=== PATIENT | female | born 1960 | race Caucasian/White ===

== ENCOUNTER → 2020-03-22 08:49 | Outpatient (BNVA) | payer OTHER, SELFPAY | PROVIDERS: PCP Family Medicine; Referring Provider Family Medicine; Visit Provider Physician Assistant | DX: K21.9 Gastro-esophageal reflux disease without esophagitis (principal); Z79.899 Other long term (current) drug therapy | CPT/HCPCS: 99212 ==

== ENCOUNTER → 2020-06-21 15:31 | Outpatient (BNVA) | payer OTHER, SELFPAY | PROVIDERS: PCP Family Medicine; Visit Provider Internal Medicine Cardiovascular Disease | DX: Z01.810 Encounter for preprocedural cardiovascular examination (principal); I35.0 Nonrheumatic aortic (valve) stenosis; R00.2 Palpitations | CPT/HCPCS: 93005; 99212 ==

== ENCOUNTER 2020-06-30 07:25 | Day surgery (SDC) | payer OTHER, SELFPAY ==
[2020-03-13 08:39] VITALS: BMI 25.7
[2020-06-30 07:41] VITALS: BP 119/75; PULSE 91; RESP 16; TEMP 36.8; O2SAT 99
--- NOTE | 2020-06-30 07:52 | HO.ANESPROP2 ---
[facility] Active Problems Active Problems: All Active Problems (Updated 06/21/20 @ 16:07 by Jesse Hudson MD) History of anemia (Acute) Laboratory examination ordered as part of a routine general medical examination (Acute) Screening for cervical cancer (Acute) Murmur, cardiac (Acute) Fibromyalgia (Acute) Chronic pain (Acute) Back pain (Acute) Moderate aortic stenosis (Acute) Palpitations (Acute) Preoperative cardiovascular examination (Acute) Acid reflux (Acute) Elevated fasting blood sugar (Acute) Past Medical History Medical History Acid reflux Arthritis Degenerative disc disease Depression Elevated fasting blood sugar GERD (gastroesophageal reflux disease) History of cardiac murmur History of palpitations Irritable bowel syndrome (IBS) Lab test negative for COVID-19 virus Thyroid disease Family History Family History Father Asthma Mother Arthritis Medical history non-contributory Brother Colon cancer Brother No problems noted. Brother No problems noted. Sister No problems noted. Sister No problems noted. Sister No problems noted. Son No problems noted. Son No problems noted. Daughter No problems noted. Surgical History Surgical History H/O colonoscopy H/O excision of ganglion cyst History of back surgery History of esophagogastroduodenoscopy (EGD) Hx of cholecystectomy Hx of tubal ligation Social History Social History Alcohol intake: never Smoking Status: Unknown if ever smoked Advance Directives Information Provided: No Current occupational status: disabled Meds Allergies Allergy/AdvReac Type Severity Reaction Status Date / Time nabumetone [From Relafen] Allergy Intermediate ITCHING Verified 06/30/20 07:52 shellfish derived Allergy Intermediate Swelling Verified 06/30/20 07:52 tramadol [Tramadol] Allergy Mild ITCHING Verified 06/30/20 07:52 Home Medications Medication Instructions Recorded Confirmed Last Taken Type fluticasone propionate 1 spray INTRANASAL DAILY 03/13/20 06/21/20 Unknown History meclizine 1 tab PO TID PRN 03/13/20 06/21/20 Unknown History omeprazole 1 cap PO DAILY 03/13/20 06/21/20 06/30/20 06:30 History paroxetine HCl 1 tab PO BEDTIME 03/13/20 06/21/20 Unknown History zolpidem 1 tab PO BEDTIME PRN 03/13/20 06/21/20 Unknown History lorazepam 1 mg tablet mg PO 03/20/20 06/21/20 Unknown History buspirone 10 mg tablet 10 mg PO BID 04/27/20 06/26/20 06/30/20 06:30 History cholecalciferol (vitamin D3) 25 25 mcg PO DAILY 04/27/20 06/26/20 Unknown History mcg (1,000 unit) capsule duloxetine 60 mg capsule,delayed 60 mg PO DAILY 04/27/20 06/26/20 Unknown History release fexofenadine 180 mg tablet 180 mg PO DAILY 04/27/20 06/26/20 Unknown History clonazepam 1 mg tablet 1 mg PO DAILY PRN 06/21/20 06/26/20 Unknown History Exam Exam Date and Time: June 30, 2020 0752 Height,Weight and Vital Signs: Height 5 ft 3 in Weight 65.771 kg Last Vital Signs Temp 98.3 F 06/30/20 07:41 Pulse 91 06/30/20 07:41 Resp 16 06/30/20 07:41 BP 119/75 06/30/20 07:41 Pulse Ox 99 06/30/20 07:41 Airway Mallampati Class: I TM Dist: >3cm Denture: Upper Loose/Missing/Broken Teeth: Yes, Upper and Lower Heart: RRR Lungs: CTA Assessment and Plan Assessment Anesthesia Assessment: Anesthesia Plan Discussed and Chart Reviewed Final Anesthetic Review NPO: Yes ASA Class: III Final Preanesthetic Review: Meds/Allgs Chart Reviewed, Consent Obtained/Reviewed and Anes Risks/Benef Reviewed Patient Risk: Intermediate Procedure Risk: Intermediate Anesthetic Plan Anesthetic Plan: MAC: Disposition: Standard PACU
[2020-06-30] MEDS: Lactated Ringers 1,000 ML 50 ML IV (08:08)
--- NOTE | 2020-06-30 08:12 | W.PM.OPN ---
Operative Note Operative Note Date of Service: 06/30/20 Narrative: Pre-op diagnosis: Colon cancer screening, GERD Post-op diagnosis: other (GERD, gastritis, gastric nodule, diverticulosis, hemorrhoids) Procedure: FLEXIBLE TRANSORAL UPPER GASTROINTESTINAL ENDOSCOPY WITH BIOPSIES AND COLONOSCOPY TILL CECUM WITH BIOPSIES UPPER ENDOSCOPY Consent: Indications for the procedure and potential complications of bleeding, perforation, reaction to medications and missed diagnosis were discussed with the patient and informed consent was obtained. Instrument: Olympus GIF H 190 mid size upper endoscope Monitoring: Vital signs and clinical assessment, continuous EKG monitoring, Pulse oximetry, Carbon Dioxide monitoring and blood pressure monitoring were done throughout the procedure. Procedure: The patient was placed in the left lateral decubitis position and pre-procedure medications were administered and a bite block was placed. The endoscope was inserted into the mouth and advanced under direct vision to the third part of duodenum. A careful inspection was made as the upper endoscope was withdrawn including a retroflexed examination of the proximal stomach; Findings and interventions are described below. Findings: Larynx: Normal Esophagus: GE junction at 38 cms.. No esophagitis or Lelsworth's. Stomach: Moderate diffuse gastric erythema with nodular appearing gastric mucosa in the body of the stomach. Biopsies were obtained from the antrum and body. A 1.5 cms benign appearing nodule in the antrum - biopsied. Grade 2 flap valve on retroflexed examination of the cardia. Duodenum: Normal bulb and descending duodenum Intervention: Biopsies as noted above COLONOSCOPY PROCEDURE NOTE Consent: Indications for the procedure and potential complications of bleeding, perforation, reaction to medications and missed diagnosis were discussed with the patient and informed consent was obtained. Instrument: Olympus PCF H 190 L variable stiffness pediatric colonoscope Monitoring: Vital signs and clinical assessment, intermittent blood pressure monitoring, continuous EKG monitoring, Pulse oximetry and Carbon Dioxide monitoring were done throughout the procedure. Colon withdrawl time was 20 minutes. Procedure: The patient was placed in the left lateral decubitis position and pre-procedure medications were administered. After a digital rectal examination of the ano-rectum, the video colonoscope was inserted into the rectum and advanced through the colon to the cecum. The colonoscope was slowly withdrawn in a retrograde panoramic fashion and the colon mucosa was carefully examined including a retroflexed view of the rectum. Findings and interventions are described below. Procedure Difficulty: : Colon was long and tortuous, there was some loop formation. No maneuvers required. Findings: Terminal Ileum: Distal 10 cm was examined and appeared normal - random biopsies were obtained Cecum: Friable and nodular appearing mucosa with patchy erythema - random biopsies obtained from the right colon Ascending Colon: Friable and nodular appearing mucosa with patchy erythema - random biopsies obtained from the right colon. Transverse Colon: Friable and nodular appearing mucosa with patchy erythema Descending Colon: Moderate diverticulosis Sigmoid Colon: Friable and nodular appearing mucosa with patchy erythema - random biopsies obtained from the left colon.Severe diverticulosis with luminal narrowing Rectum: Normal Ano-rectum: Moderate internal hemorrhoids Colon preparation: Good Impression and Post Procedure Diagnosis: Endoscopy Findings: STOMACH: Moderate diffuse gastric erythema with nodular appearing gastric mucosa in the body of the stomach. Biopsies were obtained from the antrum and body. A 1.5 cms benign appearing nodule in the antrum - biopsied Colonoscopy Findings: No polyps were detected Friable and nodular appearing mucosa with patchy erythema (rt > lt) - random biopsies obtained from the TI, right and left colon Moderate diverticulosis seen in the left colon Moderate hemorrhoids on retroflexed exam. Plan: Await pathology results Patient has an appointment on 07/06/20 in the GI Clinic with JEMMA Rogers. Repeat Colonoscopy interval based on path results - in 5 years due to a history of adenomatous colon polyps. Above findings were reviewed with the patient and GERD and diverticulosis handouts were given in the discharge area Surgeon: Miguelito Caldwell MD Anesthesia: MAC (Rachel Cuff, [employer]) Estimated blood loss (mL): 0 Pathology: other (A. Gastric antrum, B. Gastric antral nodule, C. Gastric body, D. TI, E. Rt colon, F. Left colon) Condition: stable Disposition: PACU
--- NOTE | 2020-06-30 08:12 | MHC.SHP ---
Pre-Procedural Eval Section A The patient is an INPATIENT: No The History & Physical has been completed within 30 days and I have reviewed it.: No Section B Chief Complaint: IBS, Acid Reflux Details of Present Illness: A 59-year-old female scheduled for follow-up after EGD and colonoscopy- she had call to reschedule that had not happen. she says she still has her prep- she wants to be rescheduled. She can not is to have acid reflux despite PPI. She is taking Linzess with good response for constipation. She has had no rectal bleeding, fever or chills. Relevant Family History (Specify if Yes): No Relevant Social History: None Present Medications: see Short Stay Collaborative assessment Medical History: Significant History (Acid reflux Arthritis Degenerative disc disease Depression Elevated fasting blood sugar GERD (gastroesophageal reflux disease) History of cardiac murmur History of palpitations Irritable bowel syndrome (IBS) Lab test negative for COVID-19 virus Thyroid disease) History of Previous Operations: Relevant previous surgery/procedure and date(s) (H/O colonoscopy H/O excision of ganglion cyst History of esophagogastroduodenoscopy (EGD) Hx of cholecystectomy Hx of tubal ligation) Allergies: Allergies Allergy/AdvReac Type Severity Reaction Status Date / Time nabumetone [From Relafen] Allergy Intermediate ITCHING Verified 06/30/20 07:52 shellfish derived Allergy Intermediate Swelling Verified 06/30/20 07:52 tramadol [Tramadol] Allergy Mild ITCHING Verified 06/30/20 07:52 Review of Systems Sugical H&P ROS: Negative: Cardiovascular, Respiratory and Neurological and Yes, Specify: Gastrointestinal (heartburn) Exam Surgical H&P Exam: Normal: Heart, Normal: Lungs, Normal: Extremities and Normal: Abdomen Plan Diagnosis/Plan: Unchanged I have reviewed the history and physical and performed a pertinent physical examination on my patient. No changes have occurred unless specified.
[2020-06-30 09:19] VITALS: BP 96/65; PULSE 97; RESP 20; TEMP 36.3; O2SAT 98
[2020-06-30 09:24] VITALS: BP 111/69; PULSE 83; RESP 20; O2SAT 99
[2020-06-30 09:34] VITALS: BP 113/72; PULSE 92; RESP 20; O2SAT 99
[2020-06-30 09:49] VITALS: BP 121/80; PULSE 84; RESP 20; O2SAT 99
== END 2020-06-30 10:15 | disposition home or self-care (01) ==
PROVIDERS: PCP Family Medicine; Visit Provider Internal Medicine Gastroenterology
PROC: (CPT 45380; principal; 2020-06-30 08:20)
DX: Z12.11 Encounter for screening for malignant neoplasm of colon (principal); K57.30 Diverticulosis of large intestine without perforation or abscess without bleeding; K64.8 Other hemorrhoids; K52.9 Noninfective gastroenteritis and colitis, unspecified; K21.9 Gastro-esophageal reflux disease without esophagitis; K29.50 Unspecified chronic gastritis without bleeding; K31.7 Polyp of stomach and duodenum; I35.0 Nonrheumatic aortic (valve) stenosis; Z79.899 Other long term (current) drug therapy; Z88.8 Allergy status to other drugs, medicaments and biological substances; Z90.49 Acquired absence of other specified parts of digestive tract
CPT/HCPCS: 45380; 43239; 88305; 88342

== ENCOUNTER 2020-07-05 06:39 | Outpatient (REF) | payer OTHER, SELFPAY ==
[2020-07-05 07:41] LABS: Alanine Aminotransferase 15 U/L (0-31); Alkaline Phosphatase 56 U/L (39-117); Anion Gap 12 (12-20); Aspartate Amino Transferase 21 U/L (5-31); Bilirubin Total 0.6 mg/dL (0.0-1.0); Blood Urea Nitrogen 10 mg/dL (9-16); Carbon Dioxide 29 mmol/L (22-29); Cholesterol 182 mg/dL; Estimated Glomerular Filt Rate > 60; Glucose Fasting 102 mg/dL (60-99); HDL Cholesterol 71 mg/dL; LDL Cholesterol Calculated 97 mg/dl; Total Protein 7.5 g/dL (6.5-8.0); Triglycerides 72 mg/dL
[2020-07-05 08:02] LABS: TSH reflex Free T4 1.41 uIU/mL (0.32-4.0)
[2020-07-05 08:40] LABS: Albumin Level 4.3 g/dL (3.5-5.0); Calcium 9.3 mg/dL (8.4-10.2); Chloride 105 mmol/L (96-108); Potassium 4.5 mmol/L (3.3-5.1); Sodium 141 mmol/L (135-145)
== END 2020-07-05 06:40 | disposition home or self-care (01) ==
LOC: HO.LAB 06:39
PROVIDERS: PCP Family Medicine; Visit Provider Family Medicine
DX: Z00.00 Encounter for general adult medical examination without abnormal findings (principal); R73.01 Impaired fasting glucose
CPT/HCPCS: 36415; 80053; 80061; 84443

== ENCOUNTER → 2020-07-06 10:13 | Outpatient (BNVA) | payer OTHER, SELFPAY | PROVIDERS: PCP Family Medicine; Visit Provider Physician Assistant | DX: Z13.89 Encounter for screening for other disorder (principal) | CPT/HCPCS: 99212 ==

== ENCOUNTER 2020-07-07 12:18 | Outpatient (REF) | payer OTHER, SELFPAY ==
[2020-07-07 13:50] LABS: MANUAL DIFF FLAG NO
[2020-07-07 13:55] LABS: Basophils Percent Auto 0.6 % (0-2); Eosinophils Absolute Auto 0.5 X10*3/uL (0.0-0.4); Eosinophils Percent Auto 6.7 % (0-4); Hematocrit 36.3 % (37-47); Hemoglobin 11.7 g/dl (12.0-16.0); Imm Gran Abs Auto 0.01 X10*3/uL (0.00-0.03); Imm Gran Pct Auto 0.1 % (0.0-0.4); Lymphocytes Absolute Auto 2.7 X10*3/uL (1.2-4.9); Lymphocytes Percent Auto 39.6 % (20-40); Mean Corpuscular HGB Conc 32.2 g/dl (31.0-35.0); Mean Corpuscular Hemoglobin 29.2 pg (27.0-33.0); Mean Corpuscular Volume 90.5 fL (80-98); Mean Platelet Volume 10.2 fL (9.4-12.3); Monocytes Absolute Auto 0.4 X10*3/uL (0.1-1.2); Monocytes Percent Auto 6.4 % (2-11); Neutrophils Absolute Auto 3.2 X10*3/uL (2.0-8.3); Neutrophils Percent Auto 46.6 % (45-73); Platelet Count 195 X10*3/uL (160-400); Red Blood Count 4.01 X10*6/uL (4.20-5.50); White Blood Count 6.8 X10*3/uL (4.8-10.8)
[2020-07-07 14:03] LABS: Estimated Average Glucose 100 mg/dL; Hemoglobin A1c % 5.1 %
== END 2020-07-07 12:19 | disposition home or self-care (01) ==
LOC: HO.WFDLDS 12:18
PROVIDERS: Visit Provider Family Medicine
DX: R73.01 Impaired fasting glucose (principal); D64.9 Anemia, unspecified; Z12.4 Encounter for screening for malignant neoplasm of cervix
CPT/HCPCS: 36415; 83036; 85025

== ENCOUNTER 2020-07-25 09:31 | Outpatient (REF) | payer OTHER, SELFPAY ==
[2020-07-25 11:58] LABS: SARS COV2 PCR INHOUSE NEGATIVE (Negative)
== END 2020-07-25 09:32 | disposition home or self-care (01) ==
LOC: HO.LAB 09:31
PROVIDERS: Visit Provider Internal Medicine
DX: Z20.822 Contact with and (suspected) exposure to COVID-19 (principal)
CPT/HCPCS: C9803; U0003

== ENCOUNTER 2020-08-23 10:39 | Outpatient (REF) | payer OTHER, SELFPAY ==
[2020-08-30 03:52] LABS: HPV mRNA E6/E7 rflx Not Detected (Not Detected)
== END 2020-08-23 10:40 | disposition home or self-care (01) ==
LOC: HO.LAB 10:39
PROVIDERS: Visit Provider Advanced Practice Midwife
DX: Z01.419 Encounter for gynecological examination (general) (routine) without abnormal findings (principal); Z11.51 Encounter for screening for human papillomavirus (HPV)
CPT/HCPCS: 87624; 88142

== ENCOUNTER → 2020-09-13 10:26 | Outpatient (REF) | payer OTHER, SELFPAY ==
--- NOTE | 2020-09-13 10:30 | CA_ITS ---
Transthoracic Echocardiogram Patient (Last, First, Middle): Margarette Fry, Gender: Female Date of : 1960 Age: 59 Procedure Date: 09/13/2020 Procedure Type: Transthoracic Echocardiogram Location: OP Height: 160.02 cm Weight: 66.23 kg BSA: 1.69 m2 Heart Rate: bpm BP: 117 / 69 mmHg Director Of Strategic Marketing: MELANY Davidson MD: Jesse Hudson MD Bridge/Structure Inspection Team Leader: Antoni Leblanc MD Symptoms: R01.1 - Cardiac murmur, unspecified Study Quality: Fair ECG Rhythm: Sinus Conclusions: - 1. Normal LV systolic function 2. Moderate aortic stenosis 3. Normal RV systolic pressure 4. No pericardial effusion Findings Left Ventricle Normal left ventricular size, thickness, and systolic function. The visually estimated ejection fraction is between 60-65%. Spectral Doppler is indicative of a normal filling pattern. Right Ventricle Normal right ventricular cavity size and systolic function. Atria Both atria are normal in size. Interatrial shunt cannot be excluded. Aortic Valve There is moderate calcification of the aortic valve. There is moderate aortic valve stenosis. The mean gradient is 15 mmHg. There is no aortic valve regurgitation. Mean gradient in the range of [id number]-[id number] stenosis, however there is low stroke volume noted and valve area calculated at 1.12 cm2. Dimensionless index is 0.32. Overall more consistent with moderate aortic stenosis. Mitral Valve Likely normal mitral valve structure and function. There is trace mitral valve regurgitation. There is no mitral valve stenosis. Pulmonic Valve The pulmonic valve was not well visualized. Tricuspid Valve Likely normal tricuspid valve structure and function. There is trace tricuspid valve regurgitation. The right ventricular systolic pressure is normal. The right ventricular systolic pressure is 25 mmHg. Normal right atrial pressure. There is no evidence of pulmonary hypertension. Great Vessels All visible segments of the aorta are normal in size. The pulmonary artery was not well visualized. Venous The inferior vena cava is normal in size and collapses greater than 50% with inspiration. Pericardium/Pleural There is no evidence of pericardial effusion. Measurements 2D Linear Measurements IVSd: 0.71 0.6-0.9/0.6-1.0 cm LVIDd: 4.35 3.9-5.3/4.2-5.9 cm LVIDd Index: 2.57 2.4-3.2/2.2-3.1 cm/m2 LVIDs: 3.05 2.0-3.6 cm LVPWd: 0.78 0.7-1.1 cm Ao Root: 2.90 2.1-3.5 cm LA Diam: 3.10 2.7-3.8/3.0-4.0 cm LAIDs Index: 1.83 1.5-2.3 cm/m2 LV Mass: 120.69 67-162/88-224 g LV Mass Index: 71.41 43-95/49-115 g/m2 LVOT Diam: 2.10 3.0+(-)1.3 cm Mitral Valve MV Pk E: 0.77 MV PK A: 0.66 MV Decel Time: 229.00 E/A: 1.20 E'Lateral: 10.90 E'Medial: 8.38 E/E' Med: 9.20 E/E' Lat: 7.10 PHT: 67.00 MVA PHT: 3.28 Decel Johnson: 3.37 Aortic Valve AoV Pk Lion: 2.82 AoV Mn Lion: 1.81 AoV VTI: 0.61 AoV Pk Grad: 32.00 Aov Mn Grad: 15.00 GENIA Cont.VTI: 1.12 LVOT LVOT Pk Lion: 0.78 LVOT Mn Lion: 0.55 LVOT VTI: 0.20 LVOT Pk Grad: 2.00 LVOT Mn Grad: 1.00 LVOT Diam: 2.10 LVOT Area: 3.46 Diastolic Function MV Pk E: 0.77 MV Pk A: 0.66 E/A: 1.20 E'Medial: 8.38 E/E' Med: 9.20 E' Laterial: 10.90 E/E' Lat: 7.10 Tricuspid Valve TR Pk Lion: 2.36 TR Pk Grad: 22.00 RA Press: 3.00 RVSP: 25.00 Great Vessels Aorta Ao Root-2D: 2.90 2.0-3.7 cm Ao Asc: 2.80 2.1-3.4 cm Ao Arch: 3.20 Updated in Other Vendor System with Status of Final Antoni Leblanc MD electronically signed on 09/14/2020 5:18:32 PM with status of Final
== END ==
LOC: HO.CARD 10:26
PROVIDERS: Visit Provider Internal Medicine Cardiovascular Disease
DX: R01.1 Cardiac murmur, unspecified (principal)
CPT/HCPCS: 93306

== ENCOUNTER 2020-09-14 11:45 | Outpatient (REF) | payer OTHER, SELFPAY ==
[2020-09-14 12:08] LABS: MANUAL DIFF FLAG NO
[2020-09-14 12:19] LABS: Basophils Absolute Auto 0.1 X10*3/uL (0.0-0.2); Eosinophils Absolute Auto 0.9 X10*3/uL (0.0-0.4); Eosinophils Percent Auto 15.4 % (0-4); Hematocrit 37.3 % (37-47); Imm Gran Abs Auto 0.02 X10*3/uL (0.00-0.03); Imm Gran Pct Auto 0.3 % (0.0-0.4); Lymphocytes Absolute Auto 2.1 X10*3/uL (1.2-4.9); Lymphocytes Percent Auto 35.5 % (20-40); Mean Corpuscular HGB Conc 32.2 g/dl (31.0-35.0); Mean Corpuscular Hemoglobin 29.3 pg (27.0-33.0); Mean Corpuscular Volume 91.2 fL (80-98); Mean Platelet Volume 9.6 fL (9.4-12.3); Monocytes Absolute Auto 0.4 X10*3/uL (0.1-1.2); Monocytes Percent Auto 6.7 % (2-11); Neutrophils Absolute Auto 2.5 X10*3/uL (2.0-8.3); Neutrophils Percent Auto 41.1 % (45-73); Platelet Count 194 X10*3/uL (160-400); Red Blood Count 4.09 X10*6/uL (4.20-5.50); Red Cell Distribution Width 13.1 % (11.0-16.0)
== END 2020-09-14 11:46 | disposition home or self-care (01) ==
LOC: HO.LAB 11:45
PROVIDERS: PCP Family Medicine; Visit Provider Family Medicine
DX: D64.9 Anemia, unspecified (principal)
CPT/HCPCS: 36415; 85025

== ENCOUNTER 2020-09-27 11:56 | Outpatient (REF) | payer OTHER, SELFPAY ==
--- NOTE | ~2020-09-27 | MM_ITS ---
EXAMINATION: MM SCREENING DIGITAL BREAST TOMOSYNTHESIS, BILATERAL CLINICAL INFORMATION: Screening. Asymptomatic. The lifetime risk of breast cancer based on the Tyrer-Cuzick Model is 4%. COMPARISON: Mammography: 05/08/2015, 12/10/2012 TECHNIQUE: Digital breast tomosynthesis is performed in both the craniocaudal and mediolateral oblique views along with computer-aided detection (CAD). Synthesized 2D images are generated from the tomosynthesis. FINDINGS: There are scattered areas of fibroglandular density (ACR BI-RADS breast composition Category b). There are interval bilateral benign ductal secretory calcifications, greater on right synthesized prior exam. Scattered benign round and vascular calcifications are also present. There is no interval mass or architectural abnormality or developing density. The axilla and skin contours are unremarkable. No significant changes. MM/MM tomosynthesis screening BI IMPRESSION: No mammographic evidence of malignancy. ASSESSMENT: BI-RADS 2: Benign RECOMMENDATION: Routine annual mammography screening. This patient's information was entered into a reminder system with a target due date for their next mammogram.
== END 2020-09-27 11:57 | disposition home or self-care (01) ==
LOC: HO.MAMMO 11:56
PROVIDERS: PCP Family Medicine; Visit Provider Hospitalist
DX: Z12.31 Encounter for screening mammogram for malignant neoplasm of breast (principal)
CPT/HCPCS: 77063; 77067

== ENCOUNTER → 2021-01-18 07:47 | Outpatient (BNVA) | payer OTHER, SELFPAY | PROVIDERS: PCP Family Medicine; Visit Provider Physician Assistant | DX: K59.09 Other constipation (principal); R14.0 Abdominal distension (gaseous) | CPT/HCPCS: 99212 ==

== ENCOUNTER → 2021-02-08 11:09 | Outpatient (BNVA) | payer OTHER, SELFPAY | PROVIDERS: PCP Family Medicine; Referring Provider Family Medicine; Visit Provider Internal Medicine Cardiovascular Disease | DX: I35.0 Nonrheumatic aortic (valve) stenosis (principal); R00.2 Palpitations | CPT/HCPCS: 99212 ==

== ENCOUNTER 2021-03-16 07:51 | Outpatient (REF) | payer OTHER, SELFPAY ==
--- NOTE | ~2021-03-16 | FL_ITS ---
EXAMINATION: FL BARIUM SWALLOW CLINICAL INFORMATION: Early satiety COMPARISON: None TECHNIQUE: Barium swallow examination is performed using fluoroscopic evaluation in addition to multiple fluoroscopic spot views. The patient is imaged both upright and prone and using both thick and thin sulfate along with effervescent granules. Barium tablet was also administered. Fluoroscopy time: 0.8 minutes DAP: 2.1 Gycm2 Images: 37 saved fluoroscopic images FINDINGS: The swallowing mechanism is normal. No aspiration or penetration is seen. There is slight mass effect on the posterior cervical esophagus from cervical spine bony osteophyte. There is mild gastroesophageal reflux. There is question of mild distal esophagitis. No mass, stricture or hernia is seen. The barium tablet passed into the stomach. FL/FL barium swallow IMPRESSION: Gastroesophageal reflux and question mild esophagitis.
[2021-03-16 08:37] LABS: Anion Gap 13 (12-20); Blood Urea Nitrogen 10 mg/dL (9-16); Calcium 9.7 mg/dL (8.4-10.2); Carbon Dioxide 28 mmol/L (22-29); Chloride 104 mmol/L (96-108); Estimated Glomerular Filt Rate > 60; Glucose Fasting 99 mg/dL (60-99); Potassium 4.5 mmol/L (3.3-5.1); Sodium 140 mmol/L (135-145)
[2021-03-16 08:59] LABS: TSH reflex Free T4 2.98 uIU/mL (0.32-4.0)
[2021-03-16 09:32] LABS: Erythrocyte Sedimentation Rate 18 MM/HR (0-20)
== END 2021-03-16 07:52 | disposition home or self-care (01) ==
LOC: HO.XRAY 07:51
PROVIDERS: Absent Provider Family Medicine; PCP Family Medicine; Visit Provider Physician Assistant
DX: Z00.00 Encounter for general adult medical examination without abnormal findings (principal); M26.609 Unspecified temporomandibular joint disorder, unspecified side; R73.01 Impaired fasting glucose; R68.81 Early satiety
CPT/HCPCS: 36415; 74220; 80048; 84443; 85652

== ENCOUNTER 2021-03-20 10:51 | Outpatient (REF) | payer OTHER, SELFPAY | END 2021-03-20 10:52 | disposition home or self-care (01) | LOC: HO.LAB 10:51 | PROVIDERS: PCP Family Medicine; Visit Provider Internal Medicine | DX: Z20.822 Contact with and (suspected) exposure to COVID-19 (principal) | CPT/HCPCS: C9803; U0003; U0005 ==

== ENCOUNTER 2021-04-26 12:39 | Outpatient (REF) | payer OTHER, SELFPAY | END 2021-04-26 12:40 | disposition home or self-care (01) | LOC: HO.LAB 12:39 | PROVIDERS: Visit Provider Hospitalist | DX: N39.0 Urinary tract infection, site not specified (principal) | CPT/HCPCS: 87086 ==

== ENCOUNTER 2021-05-09 08:06 | Outpatient (REF) | payer OTHER, SELFPAY ==
[2021-05-09 08:45] LABS: COVID-19 Test Negative (Negative)
== END 2021-05-09 08:07 | disposition home or self-care (01) ==
LOC: HO.LAB 08:06
PROVIDERS: Visit Provider Internal Medicine
DX: Z20.822 Contact with and (suspected) exposure to COVID-19 (principal)
CPT/HCPCS: 87635; C9803

== ENCOUNTER → 2021-08-14 11:31 | Outpatient (BNVA) | payer OTHER, SELFPAY | PROVIDERS: PCP Family Medicine; Visit Provider Physician Assistant | DX: Z13.89 Encounter for screening for other disorder (principal) ==

== ENCOUNTER 2021-08-14 12:24 | Outpatient (REF) | payer OTHER, SELFPAY ==
[2021-08-14 13:11] LABS: MANUAL DIFF FLAG NO
[2021-08-14 13:20] LABS: Basophils Percent Auto 0.4 % (0-2); Eosinophils Absolute Auto 0.2 X10*3/uL (0.0-0.4); Eosinophils Percent Auto 2.1 % (0-4); Hematocrit 36.8 % (37.0-47.0); Hemoglobin 11.6 g/dl (12.0-16.0); Imm Gran Abs Auto 0.04 X10*3/uL (0.00-0.03); Imm Gran Pct Auto 0.4 % (0.0-0.4); Lymphocytes Absolute Auto 1.5 X10*3/uL (1.2-4.9); Mean Corpuscular HGB Conc 31.5 g/dl (31.0-35.0); Mean Corpuscular Hemoglobin 28.4 pg (27.0-33.0); Mean Corpuscular Volume 90.2 fL (80.0-98.0); Mean Platelet Volume 8.5 fL (9.4-12.3); Monocytes Percent Auto 9.3 % (2-11); Neutrophils Absolute Auto 7.5 x10*3/uL (2.0-8.3); Neutrophils Percent Auto 72.8 % (45-73); Platelet Count 308 X10*3/uL (160-400); Red Blood Count 4.08 X10*6/uL (4.20-5.50); Red Cell Distribution Width 12.7 % (11.0-16.0); White Blood Count 10.3 X10*3/uL (4.8-10.8)
[2021-08-14 13:41] LABS: Alanine Aminotransferase 10 U/L (0-31); Albumin Level 3.5 g/dL (3.5-5.0); Alkaline Phosphatase 68 U/L (39-117); Anion Gap 12 (12-20); Aspartate Amino Transferase 15 U/L (5-31); Bilirubin Total 0.5 mg/dL (0.0-1.0); Blood Urea Nitrogen 7 mg/dL (9-16); Calcium 9.1 mg/dL (8.4-10.2); Carbon Dioxide 27 mmol/L (22-29); Chloride 105 mmol/L (96-108); Estimated Glomerular Filt Rate > 60; Glucose Random 99 mg/dL (60-115); Potassium 3.9 mmol/L (3.3-5.1); Sodium 140 mmol/L (135-145)
== END 2021-08-14 12:25 | disposition home or self-care (01) ==
LOC: HO.WFDLDS 12:24
PROVIDERS: Visit Provider Physician Assistant
DX: K52.9 Noninfective gastroenteritis and colitis, unspecified (principal)
CPT/HCPCS: 36415; 80053; 85025

== ENCOUNTER → 2021-08-20 10:52 | Outpatient (BNVA) | payer OTHER, SELFPAY | PROVIDERS: PCP Family Medicine; Referring Provider Family Medicine; Visit Provider Internal Medicine Cardiovascular Disease | DX: I35.0 Nonrheumatic aortic (valve) stenosis (principal); R00.2 Palpitations; R19.7 Diarrhea, unspecified | CPT/HCPCS: 93005; 99212 ==

== ENCOUNTER 2021-09-08 08:24 | Outpatient (REF) | payer OTHER, SELFPAY ==
[2021-09-08 08:37] LABS: MANUAL DIFF FLAG NO
[2021-09-08 09:26] LABS: Basophils Absolute Auto 0.1 X10*3/uL (0.0-0.2); Basophils Percent Auto 1.1 % (0-2); Eosinophils Absolute Auto 0.8 X10*3/uL (0.0-0.4); Hematocrit 34.9 % (37.0-47.0); Hemoglobin 11.1 g/dl (12.0-16.0); Imm Gran Abs Auto 0.01 X10*3/uL (0.00-0.03); Imm Gran Pct Auto 0.2 % (0.0-0.4); Lymphocytes Percent Auto 53.5 % (20-40); Mean Corpuscular HGB Conc 31.8 g/dl (31.0-35.0); Mean Corpuscular Hemoglobin 28.9 pg (27.0-33.0); Mean Corpuscular Volume 90.9 fL (80.0-98.0); Mean Platelet Volume 9.8 fL (9.4-12.3); Monocytes Absolute Auto 0.4 X10*3/uL (0.1-1.2); Monocytes Percent Auto 6.7 % (2-11); Neutrophils Absolute Auto 1.4 x10*3/uL (2.0-8.3); Neutrophils Percent Auto 24.5 % (45-73); Platelet Count 194 X10*3/uL (160-400); Red Blood Count 3.84 X10*6/uL (4.20-5.50); White Blood Count 5.6 X10*3/uL (4.8-10.8)
[2021-09-08 09:57] LABS: Alanine Aminotransferase 13 U/L (0-31); Albumin Level 3.7 g/dL (3.5-5.0); Alkaline Phosphatase 58 U/L (39-117); Anion Gap 10 (12-20); Aspartate Amino Transferase 19 U/L (5-31); Bilirubin Total 0.7 mg/dL (0.0-1.0); Blood Urea Nitrogen 9 mg/dL (9-16); Calcium 9.7 mg/dL (8.4-10.2); Carbon Dioxide 29 mmol/L (22-29); Chloride 107 mmol/L (96-108); Cholesterol 180 mg/dL; Estimated Glomerular Filt Rate > 60; Glucose Fasting 87 mg/dL (60-99); HDL Cholesterol 48 mg/dL; LDL Cholesterol Calculated 108 mg/dl; Potassium 5.1 mmol/L (3.3-5.1); Sodium 141 mmol/L (135-145); Total Protein 7.3 g/dL (6.5-8.0); Triglycerides 121 mg/dL
[2021-09-08 10:20] LABS: TSH reflex Free T4 1.01 uIU/mL (0.32-4.0); Vitamin D 25-OH Total 44.4 ng/mL (>30)
== END 2021-09-08 08:25 | disposition home or self-care (01) ==
LOC: HO.LAB 08:24
PROVIDERS: PCP Family Medicine; Visit Provider Family Medicine
DX: Z00.00 Encounter for general adult medical examination without abnormal findings (principal); E55.9 Vitamin D deficiency, unspecified
CPT/HCPCS: 36415; 80053; 80061; 82306; 84443; 85025

== ENCOUNTER 2021-09-10 12:18 | Outpatient (REF) | payer OTHER, SELFPAY ==
[2021-09-10 14:39] LABS: C Reactive Protein 0.06 mg/dL (< or = 0.50)
== END 2021-09-10 12:19 | disposition home or self-care (01) ==
LOC: HO.WFDLDS 12:18
PROVIDERS: Visit Provider Family Medicine
DX: G89.29 Other chronic pain (principal)
CPT/HCPCS: 36415; 86140

== ENCOUNTER → 2021-09-10 14:41 | Outpatient (REF) | payer OTHER, SELFPAY ==
--- NOTE | 2021-09-10 14:44 | HM_ITS ---
* Total monitoring time 13 days and 18 hours. * Underlying rhythm is sinus. Average rate 82/Min; range 54 to 156/Min. * No atrial fibrillation or flutter or AV blocks or pauses. * Rare supraventricular and ventricular ectopy with minimal burden. * No patient events. MTDD
== END ==
LOC: HO.CARD 14:41
PROVIDERS: Visit Provider Internal Medicine Cardiovascular Disease
DX: R00.2 Palpitations (principal)
CPT/HCPCS: 93246

== ENCOUNTER → 2021-09-18 11:19 | Outpatient (BNVA) | payer OTHER, SELFPAY | PROVIDERS: PCP Family Medicine; Visit Provider Physician Assistant | DX: R10.9 Unspecified abdominal pain (principal); K21.9 Gastro-esophageal reflux disease without esophagitis | CPT/HCPCS: 99212 ==

== ENCOUNTER 2021-09-18 12:13 | Outpatient (REF) | payer OTHER, SELFPAY ==
[2021-09-18 14:11] LABS: Erythrocyte Sedimentation Rate 14 MM/HR (0-20)
== END 2021-09-18 12:14 | disposition home or self-care (01) ==
LOC: HO.WFDLDS 12:13
PROVIDERS: Visit Provider Family Medicine
DX: G89.29 Other chronic pain (principal)
CPT/HCPCS: 36415; 85652

== ENCOUNTER → 2021-09-28 12:31 | Outpatient (REF) | payer OTHER, SELFPAY ==
--- NOTE | 2021-09-28 12:33 | CA_ITS ---
Transthoracic Echocardiogram Patient (Last, First, Middle): Margarette Fry, Gender: Female Date of : 1960 Age: 60 Procedure Date: 09/28/2021 Procedure Type: Transthoracic Echocardiogram Location: OP Height: 157.48 cm Weight: 57.61 kg BSA: 1.58 m2 Heart Rate: 68 bpm BP: 120 / 68 mmHg [place]: SB Referring MD: Jesse Hudson MD Dialysis Chief Equipment Technician: Antoni Leblanc MD Symptoms: I35.0 - Nonrheumatic aortic (valve) stenosis Study Quality: Adequate ECG Rhythm: Sinus Conclusions: - 1. Normal LV systolic function with normal diastolic filling pattern 2. Moderate aortic stenosis 3. Normal RV systolic pressure 4. No pericardial effusion Findings Left Ventricle Normal left ventricular size, thickness, and systolic function. The visually estimated ejection fraction is between 55-60%. Spectral Doppler is indicative of a normal filling pattern. Right Ventricle Normal right ventricular cavity size and systolic function. Atria The left atrium is normal in size. There is lipomatous hypertrophy of the interatrial septum. There is no evidence of interatrial shunt. The right atrium is normal in size. Aortic Valve There is moderate calcification of the aortic valve. There is moderate thickening of the aortic valve. There is moderate aortic valve stenosis. The peak aortic gradient is 29 mmHg.The mean gradient is 16 mmHg. There is no aortic valve regurgitation. Mitral Valve There is mild anterior and posterior mitral leaflet thickening. There is mild mitral annular calcification. There is trace mitral valve regurgitation. There is no mitral valve stenosis. Pulmonic Valve The pulmonic valve was not well visualized. Tricuspid Valve Likely normal tricuspid valve structure and function. There is mild tricuspid valve regurgitation. The right ventricular systolic pressure is normal. The right ventricular systolic pressure is 25 mmHg. Normal right atrial pressure. There is no evidence of pulmonary hypertension. Great Vessels All visible segments of the aorta are normal in size. The pulmonary artery was not well visualized. Venous The inferior vena cava is normal in size and collapses greater than 50% with inspiration. Pericardium/Pleural There is no evidence of pericardial effusion. Prior Study Comparison No significant change compared to prior study dated: 09/13/2020. Measurements 2D Linear Measurements IVSd: 1.03 0.6-0.9/0.6-1.0 cm LVIDd: 3.76 3.9-5.3/4.2-5.9 cm LVIDd Index: 2.38 2.4-3.2/2.2-3.1 cm/m2 LVIDs: 2.60 2.0-3.6 cm LVPWd: 0.73 0.7-1.1 cm LA Diam: 2.80 2.7-3.8/3.0-4.0 cm LAIDs Index: 1.77 1.5-2.3 cm/m2 LV Mass: 119.83 67-162/88-224 g LV Mass Index: 75.84 43-95/49-115 g/m2 LVOT Diam: 2.10 3.0+(-)1.3 cm Mitral Valve MV Pk E: 0.98 MV PK A: 0.74 MV Decel Time: 214.00 E/A: 1.30 E'Lateral: 10.00 E'Medial: 8.92 E/E' Med: 11.00 E/E' Lat: 9.80 PHT: 63.00 MVA PHT: 3.49 Decel Harrison: 4.58 Aortic Valve AoV Pk Lion: 2.71 AoV Mn Lion: 1.90 AoV VTI: 0.66 AoV Pk Grad: 29.00 Aov Mn Grad: 16.00 GENIA Cont.VTI: 1.00 LVOT LVOT Pk Lion: 0.74 LVOT Mn Lion: 0.52 LVOT VTI: 0.19 LVOT Pk Grad: 2.00 LVOT Mn Grad: 1.00 LVOT Diam: 2.10 LVOT Area: 3.46 Diastolic Function MV Pk E: 0.98 MV Pk A: 0.74 E/A: 1.30 E'Medial: 8.92 E/E' Med: 11.00 E' Laterial: 10.00 E/E' Lat: 9.80 IVC Diam Insp: 0.84 IVC Diam Exp: 1.91 Right Ventricle TAPSE (mm): 18.30 TVS' Lion: 9.14 Tricuspid Valve TR Pk Lion: 2.34 TR Pk Grad: 22.00 RA Press: 3.00 RVSP: 25.00 IVC Diam Exp: 1.91 IVC Diam Insp: 0.84 Great Vessels Aorta Sinus of Valsalva: 2.66 2.0-3.5 cm Ao Asc: 3.00 2.1-3.4 cm Ao Arch: 2.20 Ao Desc: 2.10 Pulmonary Valve PV Pk Lion: 0.68 Peak PV Grad: 2.00 Updated in Other Vendor System with Status of Final Antoni Leblanc MD electronically signed on 09/29/2021 12:46:34 PM with status of Final
== END ==
LOC: HO.CARD 12:31
PROVIDERS: PCP Family Medicine; Visit Provider Internal Medicine Cardiovascular Disease
DX: I35.0 Nonrheumatic aortic (valve) stenosis (principal)
CPT/HCPCS: 93306

== ENCOUNTER 2021-09-28 14:02 | Outpatient (REF) | payer OTHER, SELFPAY ==
--- NOTE | ~2021-09-28 | US_ITS ---
EXAMINATION: US ABDOMEN COMPLETE CLINICAL INFORMATION: Unspecified abdominal pain. COMPARISON: Ultrasound abdomen complete 04/15/2019. TECHNIQUE: Real-time imaging of the abdominal viscera. FINDINGS: PANCREAS: Normal. ABDOMINAL AORTA: The proximal, mid, and distal segments are normal in caliber. INFERIOR VENA CAVA: Visualized portions are normal. LIVER: Normal. The liver is normal in size. The liver contour is normal. Parenchymal echogenicity is normal. No focal hepatic lesion. There is no intrahepatic biliary duct dilatation seen. GALLBLADDER: Surgically absent. COMMON BILE DUCT: Normal in caliber measuring 0.5 cm in diameter. RIGHT KIDNEY: Pelvic fullness measuring up to 0.9 cm and prominence of the proximal ureter, are increased when compared to 04/15/2019. No hydronephrosis. No renal calculi or focal parenchymal lesions. The kidney measures 10.3 cm in maximum dimension. LEFT KIDNEY: Normal. No hydronephrosis. No renal calculi or focal parenchymal lesions. The kidney measures 10.3 cm in maximum dimension. SPLEEN: Normal. The spleen measures 9.0 cm in maximum dimension. FREE FLUID: None. US/US abdomen complete IMPRESSION: Increase fullness of the pelvis of the right kidney and right ureter of uncertain etiology. If an obstructive uropathy is a clinical concerned, recommend correlation with a CT of the abdomen/pelvis.
== END 2021-09-28 14:03 | disposition home or self-care (01) ==
LOC: HO.US 14:02
PROVIDERS: Visit Provider Physician Assistant
DX: R10.9 Unspecified abdominal pain (principal)
CPT/HCPCS: 76700

== ENCOUNTER → 2021-10-09 11:10 | Outpatient (BNVA) | payer OTHER, SELFPAY | PROVIDERS: PCP Family Medicine; Referring Provider Family Medicine; Visit Provider Physician Assistant | DX: R10.11 Right upper quadrant pain (principal); K21.9 Gastro-esophageal reflux disease without esophagitis; M79.7 Fibromyalgia; R19.7 Diarrhea, unspecified | CPT/HCPCS: 99212 ==

== ENCOUNTER 2021-10-19 10:00 | Outpatient (RCR) | payer OTHER, SELFPAY ==
--- NOTE | 2021-09-19 16:10 | MHC.PT.EP ---
[facility] [place] Office [place] Office [place] Office [address] [place] [address] Dr Melonie Eliznodo [address] [phone] F: [phone] F: [phone] F: [phone] F: [phone] Physical Therapy Plan of Care Date of Evaluation: Date of Surgery: NA Diagnosis: PAIN IN L LEG Assessment: Pt IS 60 YO F REFERRED TO PT FROM DR IGNACIO WITH PAIN IN L LEG. Pt REPORTS HX OF BACK SURGERY ABOUT 10 YRS AGO (NOT SURE WHAT TYPE OF SURGERY). REPORTS RELIEF AFTER SURGERY BUT RETURN OF SXS (INSIDIOUS) ABOUT 6 MONTHS AGO. PRESENTS WITH DECREASED LE AND CORE STRENGTH, ANTALGIC GT WITH USE ST CANE, L LE PARESTHESIA (DIFFICULT TO ASSESS PREFERENCE FOR FLEX VS EXT). SHOULD BENEFIT FROM PT TO ADDRESS THESE ISSUES Frequency and Duration: The patient will be seen 2X/WK X 6 WKS Short Term Goals: 1. CENTRALIZE SXS 2. INCREASED AWARENESS BACK CARE, POSTURE, BODY MECH 3. IMPROVED SLEEP 4. LESS LIMP WITH GT Detention Goals: 1. DECREASED L LE PAIN AT LEAST 50% WITH ADLS 2. INCREASED HS FLEXIBILITY 5-10 DEGREES B 3. I HEP WITH DC EX PLAN Treatment Plan: Modalities to reduce pain, spasms and effusion. Manual therapy to restore motion and function. Therapeutic exercise to improve strength and flexibility. Neuromuscular re-education for posture and balance. Therapeutic activities to return to functional activities of daily living. Electronically signed by: DEVIN DEY PT Please sign and return to therapist. Thank you for your referral.
== END 2021-11-16 11:38 | disposition home or self-care (01) ==
LOC: HO.PTWFD 10:00
PROVIDERS: Visit Provider Family Medicine
DX: M79.605 Pain in left leg (principal)
CPT/HCPCS: 97110; 97140; 97161; 97530

== ENCOUNTER 2021-11-23 10:16 | Outpatient (REF) | payer OTHER, SELFPAY ==
[2021-11-23 11:54] LABS: Blood Urea Nitrogen 9 mg/dL (9-16); Estimated Glomerular Filt Rate > 60
== END 2021-11-23 10:17 | disposition home or self-care (01) ==
LOC: HO.10HDL 10:16
DX: N13.4 Hydroureter (principal); N13.30 Unspecified hydronephrosis
CPT/HCPCS: 36415; 82565; 84520; 99202

== ENCOUNTER 2022-01-02 10:22 | Outpatient (REF) | payer OTHER, SELFPAY ==
[2022-01-02 12:33] LABS: Blood Urea Nitrogen 9 mg/dL (9-16); Estimated Glomerular Filt Rate > 60
== END 2022-01-02 10:23 | disposition home or self-care (01) ==
LOC: HO.LAB 10:22
PROVIDERS: PCP Family Medicine; Visit Provider Urology
DX: N13.4 Hydroureter (principal)
CPT/HCPCS: 36415; 82565; 84520

== ENCOUNTER 2022-01-03 10:34 | Outpatient (REF) | payer OTHER, SELFPAY ==
--- NOTE | ~2022-01-03 | CT_ITS ---
EXAMINATION: CT ABDOMEN AND PELVIS WITHOUT AND WITH CONTRAST CLINICAL INFORMATION: Unspecified hydronephrosis. COMPARISON: Ultrasound abdomen 09/28/2021 TECHNIQUE: Noncontrast CT of the abdomen and pelvis is performed followed by split bolus contrast-enhanced images using 85 mL Omnipaque 350 contrast.? Postcontrast imaging is performed during the combined nephrogram and excretion phase. Sagittal and coronal reformatted images were obtained on the technologist's workstation for both the precontrast and postcontrast phases. This CT examination was performed using dose optimization techniques as appropriate, variously including the following: *Automated exposure control *Adjustment of mA and/or kV according to patient size (this includes techniques or standardized protocols for targeted exams where dose is matched to indication/reason for exam; i.e. extremities or head) *Use of iterative reconstruction technique DLP: 464 mGy-cm FINDINGS: LUNG BASES: There is a 3 mm nodule right middle lobe axial image 1/8. No additional nodules seen. Heart size is normal. LIVER, GALLBLADDER, AND BILIARY TREE: The liver is normal in size, shape, and attenuation. No focal hepatic lesion or biliary ductal dilatation is present. The gallbladder has been surgically removed. PANCREAS: Unremarkable. SPLEEN: Unremarkable. ADRENAL GLANDS: Unremarkable. KIDNEYS AND URETERS: There are no radiopaque renal calculi. Postcontrast there are symmetrical bilateral nephrograms with left kidney measuring 10.3 cm and the right kidney measuring 10.1 cm. There is normal cortical thickness. No enhancing renal mass, cyst seen. There are bilateral extrarenal kidney pelvises left slightly larger than the right. There is narrowing of the left UPJ from aberrant vessel seen on axial image 41/8 and coronal image 33/10. The right kidney pelvis and the entire right ureter is unremarkable. The left ureter is unremarkable as well. No intraluminal filling defects seen. Bladder: There are no radiopaque bladder calculi or bladder wall thickening. GASTROINTESTINAL TRACT: There is scattered stool and gas seen throughout the colon without distention. The small bowel loops are normal caliber. Appendix is not visualized. ABDOMINAL WALL: No significant hernia is appreciated. LYMPH NODES: Normal. VASCULAR: Unremarkable. PELVIC VISCERA: The uterus is anteverted.. No adnexal mass or free fluid seen. There is no abnormal pelvic or inguinal lymphadenopathy. OSSEUS STRUCTURES: Mild degenerative disc changes with vacuum disc phenomena L5-S1, L4-L5 L1-L2, T12/L1 and T11-T12 disc levels. No aggressive lytic or sclerotic process seen. There is minimal scoliosis. CT/CT urogram IMPRESSION: 1. No radiopaque urolith. 2. There is bilateral extrarenal kidney pelvises left slightly larger than the right. At the left UPJ there is an aberrant vessel indenting the posterior left UVJ and likely cause for a larger left pelvis. Consider followed with ultrasound or CT with patient prone to evaluate if the left kidney pelvis improves. 3. Mild constipation. 4. Cholecystectomy. 5. Small 3 mm nodule right middle lobe.
[2022-01-03] MEDS: iohexoL 350 MG/ML 100 ML INFUS..BTL IV (11:57)
== END 2022-01-03 10:35 | disposition home or self-care (01) ==
LOC: HO.CT 10:34
PROVIDERS: PCP Family Medicine
DX: N13.30 Unspecified hydronephrosis (principal)
CPT/HCPCS: 74178; Q9967

== ENCOUNTER → 2022-01-07 13:27 | Outpatient (BNVA) | payer OTHER, SELFPAY | PROVIDERS: PCP Family Medicine; Referring Provider Family Medicine; Visit Provider Internal Medicine Gastroenterology | DX: K52.9 Noninfective gastroenteritis and colitis, unspecified (principal) | CPT/HCPCS: 99212 ==

== ENCOUNTER 2022-01-13 08:30 | Outpatient (REF) | payer OTHER, SELFPAY ==
[2022-01-22 14:27] LABS: Lactoferrin, Fecal, Quant. <6.25 mcg/mL (<7.25)
== END 2022-01-13 08:31 | disposition home or self-care (01) ==
LOC: HO.LNP 08:30
PROVIDERS: Visit Provider Internal Medicine Gastroenterology
DX: K52.9 Noninfective gastroenteritis and colitis, unspecified (principal)
CPT/HCPCS: 83631

== ENCOUNTER 2022-01-22 14:37 | Outpatient (REF) | payer OTHER, SELFPAY ==
[2022-01-23 14:54] LABS: H Pylori Breath Test Negative (Negative)
== END 2022-01-22 14:38 | disposition home or self-care (01) ==
LOC: HO.LNP 14:37
PROVIDERS: Visit Provider Internal Medicine Gastroenterology
DX: A04.8 Other specified bacterial intestinal infections (principal)
CPT/HCPCS: 83013; 99211

== ENCOUNTER → 2022-02-25 10:48 | Outpatient (BNVA) | payer OTHER, SELFPAY | PROVIDERS: PCP Family Medicine; Referring Provider Family Medicine; Visit Provider Internal Medicine Cardiovascular Disease | DX: R07.89 Other chest pain (principal); I35.0 Nonrheumatic aortic (valve) stenosis | CPT/HCPCS: 99212 ==

== ENCOUNTER → 2022-03-06 10:19 | Outpatient (REF) | payer OTHER, SELFPAY ==
--- NOTE | 2022-03-06 10:22 | CA_ITS ---
Acquisition Time: 2022-03-06 10:24:31 Total Exercise Time: 00:04:14 Test Indications: Other chest pain Medications: See H Protocol: RAFITA Max HR: 166 BPM 105% of Pred: 158 BPM Max BP: 160/086 mmHG Max Work Load: 6.0 METS Exercise stress test with exercise 4 min 14 sec of Rafita protocol, achieving 106% MPHR, without anginal symptoms, with isolated PVC, with normotensive response to exercise, with EKG changes meeting criteria for ischemia; horizontal to downsloping ST depressions inferiorly and V4-V6 which improves in recovery. Test reviewed with Dr Hudson. Referred By: Jesse Hudson Overread By: TAD BUNDY
== END ==
LOC: HO.CARD 10:19
PROVIDERS: PCP Family Medicine; Visit Provider Internal Medicine Cardiovascular Disease
DX: R07.89 Other chest pain (principal)
CPT/HCPCS: 93017

== ENCOUNTER 2022-03-14 14:54 | Outpatient (REF) | payer OTHER, SELFPAY | END 2022-03-14 14:55 | disposition home or self-care (01) | LOC: HO.US 14:54 | PROVIDERS: Visit Provider Internal Medicine Gastroenterology | DX: Z13.89 Encounter for screening for other disorder (principal) ==

== ENCOUNTER 2022-04-02 13:51 | Outpatient (REF) | payer OTHER, SELFPAY ==
--- NOTE | ~2022-04-02 | CT_ITS ---
EXAMINATION: CT ENTEROGRAPHY ABDOMEN AND PELVIS WITH CONTRAST CLINICAL INFORMATION: Periumbilical pain COMPARISON: Previous CT scans most recent CT urogram December 2021 and abdominal ultrasound September 2021 TECHNIQUE: Study performed with oral VoLumen (1350 mL) and 480 mL of water to distend the abdomen. The patient was injected with 85 mL Omnipaque 350 intravenous contrast which was administered without adverse effect. Coronal and sagittal reformatted images were obtained at the technologist's workstation. This CT examination was performed using dose optimization techniques as appropriate, variously including the following: *Automated exposure control *Adjustment of mA and/or kV according to patient size (this includes techniques or standardized protocols for targeted exams where dose is matched to indication/reason for exam; i.e. extremities or head) *Use of iterative reconstruction technique DLP: 255 mGy-cm FINDINGS: GASTROINTESTINAL FINDINGS: Stomach: Well-distended and normal in appearance. Small intestine: Satisfactorily distended and normal in appearance. Large intestine: Constipation. Well-distended and otherwise normal in appearance. No perirectal changes demonstrated. The appendix is normal. Additional findings: No abnormal enhancement of the vasa recta or significant mesenteric or retroperitoneal lymphadenopathy is seen. No abdominal abscess or fistulous tract demonstrated. ABDOMINAL AND PELVIC CT FINDINGS: Liver, gallbladder, biliary tract: The liver is normal. The gallbladder has been removed. Pancreas: Fatty infiltration of the pancreas. Spleen: Normal Adrenal glands and kidneys: The adrenal glands are normal. There are bilateral extrarenal pelvises. Ureters and bladder: Normal Lymphovascular structures: Atherosclerotic disease. No aneurysm. No adenopathy. No ascites. Bones: Scoliosis and degenerative changes of the spine. Lung bases: Normal Small umbilical hernia containing fat. CT/CT enterography IMPRESSION: Constipation. Otherwise unremarkable CT enterography exam. Fatty infiltration of the pancreas.
[2022-04-02] MEDS: iohexoL 350 MG/ML 100 ML INFUS..BTL IV (15:45)
[2022-04-02] MEDS: Sorbitol/Mannit/Xanth Imaging 500 ML LIQUID 1500 ML PO (15:48)
--- NOTE | 2022-04-02 16:08 | PC.NURSE ---
Called to CT1 at 15:44 to evaluate pt d/t her feeling like her heart is pounding like crazy after CT contrast was injected. VSS 153/84-103-20. Cardiac rhthym sinus tachycardia. O2 Sat 100% on room air. LS clear throughout. Pt A&OX3. Skin w/d. Respirations even and easy. Pt speaking in full sentences. No visible hives noted. No difficulty breathing or swallowing. Denies chest pain or discomfort of any kind. 15:50 140/77-91 NSR-18. O2 Sat 100% on room air. Pt reports feeling better. She doesn't feel her heart pounding at present time. Dr Chahal present to assess patient. 15:55 133/90-100-20. O2 Sat 100% on room air. Pt states she feels fine now . Denies chest pain or pain or any kind. No difficulty breathing or swallowing. Continues to speak in full sentences. No visible hives. Pt cleared for discharge home by Dr Chahal and instructed to go to Emergency room if she experiences any problems.
== END 2022-04-02 13:52 | disposition home or self-care (01) ==
LOC: HO.US 13:51
PROVIDERS: Visit Provider Internal Medicine Gastroenterology
DX: R10.33 Periumbilical pain (principal)
CPT/HCPCS: 74177; Q9967

== ENCOUNTER → 2022-04-10 15:19 | Outpatient (BNVA) | payer OTHER, SELFPAY | PROVIDERS: PCP Family Medicine; Referring Provider Family Medicine; Visit Provider Internal Medicine Cardiovascular Disease | DX: R94.39 Abnormal result of other cardiovascular function study (principal); R07.89 Other chest pain | CPT/HCPCS: 99212 ==

== ENCOUNTER → 2022-05-07 12:46 | Outpatient (REF) | payer OTHER, SELFPAY ==
--- NOTE | ~2022-05-07 | NM_ITS ---
EXAMINATION: RENAL DYNAMIC IMAGING STUDY WITH LASIX CLINICAL INFORMATION: Hydroureter. COMPARISON: No previous radionuclide renal scan is available for comparison. CT urogram dated 01/03/2022 is available for comparison. TECHNIQUE: Serial gamma scintillation camera images were obtained over the posterior trunk during the initial transit and subsequent distribution of a bolus intravenous injection of 10 mCi of Tc-99m DTPA. At 30 minutes later, 29 mg of Lasix was administered intravenously and an additional 15 minutes of images obtained. The study was terminated prematurely due to the usual 30 minutes post Lasix because of the patient's urgency to void. FINDINGS: Initial rapid sequence images show prompt and bilaterally symmetrical flow to the kidneys. Subsequent sequential static images obtained up to 30 minutes show concentration bilaterally. The kidneys are approximately equal in size. Excretory function is visualized by 3 minutes post injection bilaterally. Urinary bladder activity is initially visualized approximately 10 minutes post injection. At 30 minutes postinjection is good visualization of activity and almost complete clearance of activity from the right renal collecting system. There is very mild retention and dilatation in the left renal pelvis. Following Lasix administration, there is prompt and complete washout of the activity in both renal collecting systems. At the end of the study, terminated prematurely because of the patient's urgency to void a full urinary bladder is visualized with almost no activity in either renal collecting system. The T-1/2 washout times following Lasix administration are: Left 19.7 minutes and right 11 minutes. The relative function of the two kidneys based on the 2-3 minute images are: Left 54% and right 46%. NM/NM renal flow w pharm int IMPRESSION: LEFT KIDNEY: Normal perfusion and function. Minimal hydronephrosis may be present, but no significant outflow obstruction is present. RIGHT KIDNEY: Normal perfusion and function. No hydronephrosis or outflow obstruction.
== END ==
LOC: HO.NUCMED 12:46
PROVIDERS: PCP Family Medicine; Visit Provider Urology
DX: N13.4 Hydroureter (principal)
CPT/HCPCS: 78708; A9539; J1940

== ENCOUNTER → 2022-05-31 10:58 | Outpatient (BNVA) | payer OTHER, SELFPAY | PROVIDERS: PCP Family Medicine; Visit Provider Internal Medicine Gastroenterology | DX: K29.70 Gastritis, unspecified, without bleeding (principal); K52.9 Noninfective gastroenteritis and colitis, unspecified | CPT/HCPCS: 99212 ==

== ENCOUNTER 2022-06-04 15:36 | Outpatient (REF) | payer OTHER, SELFPAY ==
[2022-06-05 12:33] LABS: Influenza A PCR NEGATIVE (Negative); Influenza B PCR NEGATIVE (Negative); Resp Syncy Virus RNA Qual PCR NEGATIVE (Negative); SARS COV2 PCR INHOUSE NEGATIVE (Negative)
== END 2022-06-04 15:37 | disposition home or self-care (01) ==
LOC: HO.LAB 15:36
PROVIDERS: Visit Provider Family Medicine
DX: Z20.822 Contact with and (suspected) exposure to COVID-19 (principal)
CPT/HCPCS: 0241U

== ENCOUNTER 2022-06-05 11:11 | Outpatient (REF) | payer OTHER, SELFPAY ==
--- NOTE | ~2022-06-05 | XR_ITS ---
EXAMINATION: XR chest 2V CLINICAL INFORMATION: Reason for Exam R09.89 - Other specified symptoms and signs involving the circulatory system COMPARISON: Chest radiograph 11/18/2019 TECHNIQUE: 2 views of the chest FINDINGS: Mild bronchial wall thickening. No pneumothorax or pleural effusion. Normal cardiomediastinal silhouette. Upper abdominal surgical clips. S-shaped curvature of the thoracolumbar spine. XR/XR chest 2V IMPRESSION: Bronchial wall thickening which can be seen with a small airways process such as asthma or atypical/viral infection.
[2022-06-05 12:07] LABS: Hemoglobin 11.2 g/dl (12.0-16.0); Mean Corpuscular HGB Conc 32.9 g/dl (31.0-35.0); Mean Corpuscular Hemoglobin 29.5 pg (27.0-33.0); Mean Corpuscular Volume 89.5 fL (80.0-98.0); Mean Platelet Volume 10.2 fL (9.4-12.3); Platelet Count 169 X10*3/uL (160-400); Red Cell Distribution Width 13.1 % (11.0-16.0); White Blood Count 8.5 X10*3/uL (4.8-10.8)
[2022-06-05 12:50] LABS: SLIDE REVIEW MANUAL DIFF
[2022-06-05 13:15] LABS: Atypical Lymph Absolute Manual 0.2 x10*3/uL; Atypical Lymphs Percent Manual 2 % (0-6); Lymphocytes Absolute Manual 3.1 X10*3/uL (1.2-4.9); Lymphocytes Percent Manual 36 % (20-40); Monocytes Absolute Manual 0.5 X10*3/uL (0.1-1.2); Monocytes Percent Manual 6 % (2-11); Neutrophils Percent Manual 56 % (45-73)
[2022-06-05 13:16] LABS: Band Neutrophils Percent 0 % (3-5); Neutrophils Absolute Manual 4.8 X10*3/uL (2.0-8.3); Platelet Estimate NORMAL (NORMAL); Platelet Morphology Comment NORMAL; RBC Morphology NORMAL
[2022-06-05 13:22] LABS: Alanine Aminotransferase 10 U/L (0-31); Albumin Level 4.1 g/dL (3.5-5.0); Alkaline Phosphatase 63 U/L (39-117); Anion Gap 18 (12-20); Aspartate Amino Transferase 15 U/L (5-31); Bilirubin Total 0.5 mg/dL (0.0-1.0); Blood Urea Nitrogen 11 mg/dL (9-16); Calcium 9.6 mg/dL (8.4-10.2); Carbon Dioxide 25 mmol/L (22-29); Chloride 104 mmol/L (96-108); Estimated Glomerular Filt Rate > 60; Glucose Random 96 mg/dL (60-115); Potassium 4.5 mmol/L (3.3-5.1); Sodium 142 mmol/L (135-145); Total Protein 7.6 g/dL (6.5-8.0)
[2022-06-05 13:29] LABS: Free T4 (Free Thyroxine) 1.21 ng/dL (0.71-1.85); Thyroid Stimulating Hormone 0.82 uIU/mL (0.32-4.0)
[2022-06-06 05:17] LABS: Triiodothyronine T3 Total 58 ng/dL (76-181)
== END 2022-06-05 11:12 | disposition home or self-care (01) ==
LOC: HO.LAB 11:11
PROVIDERS: Internal Medicine Gastroenterology; PCP Family Medicine; Visit Provider Family Medicine
DX: Z00.00 Encounter for general adult medical examination without abnormal findings (principal); R05.9 Cough, unspecified; R09.89 Other specified symptoms and signs involving the circulatory and respiratory systems; E03.9 Hypothyroidism, unspecified
CPT/HCPCS: 36415; 71046; 80053; 84439; 84443; 84480; 85007; 85025; 85027

== ENCOUNTER → 2022-06-26 11:21 | Outpatient (BNVA) | payer OTHER, SELFPAY | PROVIDERS: PCP Family Medicine; Visit Provider Nurse Practitioner Family | DX: N13.4 Hydroureter (principal) | CPT/HCPCS: 99212 ==

== ENCOUNTER 2022-06-26 12:08 | Outpatient (REF) | payer OTHER, SELFPAY ==
[2022-06-26 14:33] LABS: Folate 12.7 ng/mL (> or = 4.0); Free T4 (Free Thyroxine) 1.16 ng/dL (0.71-1.85); Thyroid Stimulating Hormone 1.75 uIU/mL (0.32-4.0); Vitamin B12 1001 pg/mL (200-900)
[2022-06-27 09:53] LABS: Triiodothyronine T3 Total 81 ng/dL (76-181)
== END 2022-06-26 12:09 | disposition home or self-care (01) ==
LOC: HO.10HDL 12:08
PROVIDERS: Visit Provider Family Medicine
DX: E53.8 Deficiency of other specified B group vitamins (principal); E03.9 Hypothyroidism, unspecified; N13.4 Hydroureter; Z79.899 Other long term (current) drug therapy
CPT/HCPCS: 36415; 82607; 82746; 84439; 84443; 84480

== ENCOUNTER → 2022-07-04 14:49 | Outpatient (BNVA) | payer OTHER, SELFPAY | PROVIDERS: PCP Family Medicine; Visit Provider Hospitalist | DX: R91.8 Other nonspecific abnormal finding of lung field (principal); J40 Bronchitis, not specified as acute or chronic; R05.9 Cough, unspecified | CPT/HCPCS: 99202 ==

== ENCOUNTER → 2022-07-18 15:20 | Outpatient (BNVA) | payer OTHER, SELFPAY | PROVIDERS: PCP Family Medicine; Referring Provider Family Medicine; Visit Provider Internal Medicine Cardiovascular Disease | DX: I35.0 Nonrheumatic aortic (valve) stenosis (principal); R00.2 Palpitations | CPT/HCPCS: 99212 ==

== ENCOUNTER 2022-07-23 10:30 | Outpatient (REF) | payer OTHER, SELFPAY ==
--- NOTE | ~2022-07-23 | CT_ITS ---
EXAMINATION: CT CHEST WITHOUT CONTRAST CLINICAL INFORMATION: Other nonspecific abnormal finding of lung field. Follow-up pulmonary nodules. Follow-up bronchial wall thickening on chest x-ray COMPARISON: Previous chest CT June 2017 and chest x-ray most recent May 2022 TECHNIQUE: Multidetector volumetric CT imaging of the chest was done. Axial MIP volume rendering provided. Sagittal and coronal reformatted images were obtained. This CT examination was performed using dose optimization techniques as appropriate, variously including the following: *Automated exposure control *Adjustment of mA and/or kV according to patient size (this includes techniques or standardized protocols for targeted exams where dose is matched to indication/reason for exam; i.e. extremities or head) *Use of iterative reconstruction technique DLP: 106 mGy-cm FINDINGS: LUNGS: There is biapical pleural and parenchymal scarring. There are stable calcified and noncalcified pulmonary nodules. Largest pulmonary nodule is a 5 mm calcified nodule near the minor fissure axial image 305 series 7 and in the left upper lobe axial image 342 series 7 and 4 mm noncalcified right middle lobe nodule axial image 370 series 7. There is bilateral scarring or chronic subsegmental atelectasis. No acute pneumonia. No endobronchial or endotracheal lesion. MEDIASTINUM: Normal heart size. Aortic valve calcification. No pericardial effusion. No enlarged hilar or mediastinal lymph nodes. CORONARY ARTERY CALCIFICATION: Mild PLEURA: There is no pleural effusion. No pleural mass or thickening. AXILLA: No lymphadenopathy. UPPER ABDOMEN: The gallbladder has been removed. OSSEOUS STRUCTURES: Degenerative changes of the spine and scoliosis. CT/CT chest wo IV con IMPRESSION: No evidence for acute disease in the chest. No appreciable change from 2018. Fleischner guidelines were followed.
== END 2022-07-23 10:31 | disposition home or self-care (01) ==
LOC: HO.CT 10:30
PROVIDERS: PCP Family Medicine; Visit Provider Hospitalist
DX: R91.8 Other nonspecific abnormal finding of lung field (principal)
CPT/HCPCS: 71250

== ENCOUNTER → 2022-09-13 10:27 | Outpatient (BNVA) | payer OTHER, SELFPAY | PROVIDERS: PCP Family Medicine; Visit Provider Hospitalist | DX: Z23 Encounter for immunization (principal); R91.8 Other nonspecific abnormal finding of lung field; J40 Bronchitis, not specified as acute or chronic; R05.9 Cough, unspecified | CPT/HCPCS: 90471; 90677; 99212 ==

== ENCOUNTER → 2022-09-27 10:35 | Outpatient (BNVA) | payer OTHER, SELFPAY | PROVIDERS: PCP Family Medicine; Visit Provider Internal Medicine Gastroenterology | DX: K59.09 Other constipation (principal) | CPT/HCPCS: 99212 ==

== ENCOUNTER 2022-10-21 07:04 | Outpatient (REF) | payer OTHER, SELFPAY ==
[2022-10-21 07:16] LABS: MANUAL DIFF FLAG NO
[2022-10-21 07:26] LABS: Basophils Absolute Auto 0.1 X10*3/uL (0.0-0.2); Eosinophils Absolute Auto 0.4 X10*3/uL (0.0-0.4); Eosinophils Percent Auto 6.1 % (0-4); Hematocrit 38.1 % (37.0-47.0); Hemoglobin 12.3 g/dl (12.0-16.0); Lymphocytes Absolute Auto 3.3 X10*3/uL (1.2-4.9); Lymphocytes Percent Auto 56.6 % (20-40); Mean Corpuscular HGB Conc 32.3 g/dl (31.0-35.0); Mean Corpuscular Hemoglobin 29.1 pg (27.0-33.0); Mean Corpuscular Volume 90.3 fL (80.0-98.0); Mean Platelet Volume 9.2 fL (9.4-12.3); Monocytes Absolute Auto 0.4 X10*3/uL (0.1-1.2); Monocytes Percent Auto 6.1 % (2-11); Neutrophils Absolute Auto 1.7 x10*3/uL (2.0-8.3); Neutrophils Percent Auto 30.2 % (45-73); Platelet Count 158 X10*3/uL (160-400); Red Blood Count 4.22 X10*6/uL (4.20-5.50); Red Cell Distribution Width 13.7 % (11.0-16.0); White Blood Count 5.8 X10*3/uL (4.8-10.8)
[2022-10-21 08:10] LABS: Alanine Aminotransferase 18 U/L (0-31); Albumin Level 3.9 g/dL (3.5-5.0); Alkaline Phosphatase 49 U/L (39-117); Anion Gap 11 (12-20); Aspartate Amino Transferase 21 U/L (5-31); Bilirubin Total 0.6 mg/dL (0.0-1.0); Blood Urea Nitrogen 16 mg/dL (9-16); Calcium 9.6 mg/dL (8.4-10.2); Carbon Dioxide 29 mmol/L (22-29); Chloride 107 mmol/L (96-108); Cholesterol 193 mg/dL; Estimated Glomerular Filt Rate > 60; Glucose Fasting 95 mg/dL (60-99); HDL Cholesterol 71 mg/dL; LDL Cholesterol Calculated 108 mg/dl; Potassium 4.9 mmol/L (3.3-5.1); Sodium 142 mmol/L (135-145); Total Protein 7.2 g/dL (6.5-8.0); Triglycerides 74 mg/dL
[2022-10-21 08:28] LABS: Appearance Urine Clear; Color Urine Yellow; Glucose Urine UA Negative (Negative); Leukocyte Esterase Urine Trace (Negative); Nitrite Urine Negative (Negative); Specific Gravity - Urine 1.025 (1.005-1.025); UMIC TRIGGER UA YES; Urine Blood Negative (Negative); Urine Ketones Negative (Negative); Urine Protein Negative (Neg-Trace)
[2022-10-21 08:28] LABS: Free T4 (Free Thyroxine) 0.86 ng/dL (0.71-1.85); Thyroid Stimulating Hormone 10.21 uIU/mL (0.32-4.0); Vitamin D 25-OH Total 55.2 ng/mL (>30)
[2022-10-21 08:30] LABS: Bacteria Urine None Seen (None Seen); Hyaline Casts Urine 0-2 /LPF (0-2); RBC Urine 0-2 /HPF (0-2); Squamous Epithelial Cell Urine 0-2 /HPF (0-2); WBC Urine 0-5 /HPF (0-5)
[2022-10-21 09:01] LABS: Creatinine Urine 140.41 mg/dL; Microalbum/Creatinine Ratio Ur 4.2 ug/mg cr
[2022-10-22 22:58] LABS: Triiodothyronine T3 Total 64 ng/dL (76-181)
== END 2022-10-21 07:05 | disposition home or self-care (01) ==
LOC: HO.LAB 07:04
PROVIDERS: PCP Family Medicine; Visit Provider Family Medicine
DX: Z00.00 Encounter for general adult medical examination without abnormal findings (principal); E03.9 Hypothyroidism, unspecified; I10 Essential (primary) hypertension; E55.9 Vitamin D deficiency, unspecified
CPT/HCPCS: 36415; 80053; 80061; 81001; 82043; 82306; 84439; 84443; 84480; 85025

== ENCOUNTER 2022-12-03 10:08 | Outpatient (REF) | payer OTHER, SELFPAY ==
[2022-12-03 11:50] LABS: TSH reflex Free T4 1.47 uIU/mL (0.32-4.0)
== END 2022-12-03 10:09 | disposition home or self-care (01) ==
LOC: HO.MAMMO 10:08
PROVIDERS: PCP Family Medicine; Visit Provider Nurse Practitioner Family
DX: E03.9 Hypothyroidism, unspecified (principal)
CPT/HCPCS: 36415; 84443

== ENCOUNTER 2022-12-04 11:42 | Outpatient (AMB) | payer OTHER, SELFPAY ==
--- NOTE | 2022-12-04 11:45 | MHC.PC.OV ---
Vital Signs 12/04/22 11:46 Height 5 ft Weight 150 lb BMI 29.3 BP 126/68 Blood Pressure Location Lt brachial Position Sitting Pulse 75 Pulse Source Pulse Oximeter Pulse Oximetry (%) 99 Oxygen Delivery Method Room Air Intake Visit Reasons: 6 weeks Intake Note: Patient is here for follow up on her thyroid levels, concern of hair falling out. Patient concerned about left thumb for four months, discomfort and sometimes gets stuck. Allergies nabumetone [From Relafen] Allergy (Intermediate, Verified 12/04/22 11:51) ITCHING shellfish derived Allergy (Intermediate, Verified 12/04/22 11:51) Swelling tramadol [Tramadol] Allergy (Mild, Verified 12/04/22 11:51) ITCHING bee sting Adverse Reaction (Mild, Uncoded 12/04/22 11:51) Redness of Skin Tobacco use date assessed: 06/13/22 Dental Screening Dental Screen Date: 12/04/22 Did you have a dental visit in the last 12 months?: Yes Did you have a dental problem in the last 6 months where you did not have access to dental care?: No Was dental information given to patient?: No HPI 6 weeks HPI Details 62 y/o female presents to f/u chronic conditions. She had complaints of hair loss and was having issues with her thyroid levels. Repeat thyroid levels 12/03/22 - TSH was fine at 1.47. She is on levothyroxine 150mcg daily. Pt has complaints of MCP joint pain today. [facility] Medical History Acid reflux Arthritis Bronchitis Degenerative disc disease Depression Elevated fasting blood sugar GERD (gastroesophageal reflux disease) History of cardiac murmur History of palpitations Hydroureter Irritable bowel syndrome (IBS) Lab test negative for COVID-19 virus Pulmonary nodules Thyroid disease Surgical History H/O colonoscopy H/O excision of ganglion cyst History of back surgery History of esophagogastroduodenoscopy (EGD) Hx of cholecystectomy Hx of tubal ligation Family History Father Asthma Mother Arthritis Medical history non-contributory Brother Colon cancer Brother No problems noted. Brother No problems noted. Sister No problems noted. Sister No problems noted. Sister No problems noted. Son No problems noted. Son No problems noted. Daughter No problems noted. Social History Household Members: None Household Members Other:: alone Housing: House Alcohol intake: never Patient Tobacco Use Status: Never used Tobacco e-Cigarette/Vaping Use: Never Used Second Hand Smoke Exposure: No service: No Current occupational status: disabled Current occupational exposures/hazards: No Cognitive needs: No Hearing needs: No Vision needs: No Questionnaire Thrive Questionnaire Date Thrive assessed: 04/10/22 YUMIKO-7 AMB Questionnaire YUMIKO-7 Date YUMIKO - 7 assessed: 01/01/22 Source: Developed by Drs. Brian Abreu, Daina Ahmadi, Ralph Redmond and colleagues, with an educational brian from [employer]. Review of Systems Const Denies chills, Denies fatigue, Denies fever(s), Denies headache(s) and Denies weakness ENT Denies dizziness and Denies headache(s) Card Denies dyspnea Resp Denies cough, Denies dyspnea, Denies wheezing and Denies other (shortness of breath) Musc Denies numbness and Denies tingling Neuro Denies dizziness, Denies headache(s), Denies numbness, Denies tingling and Denies weakness Psych Denies anxiety and Denies depression Endo Denies fatigue Aller/Immun Denies wheezing Physical exam (Primary Care) Vital Signs: Last Vital Signs Pulse 75 12/04/22 11:46 BP 126/68 12/04/22 11:46 Pulse Ox 99 12/04/22 11:46 Oxygen Delivery Method Room Air 12/04/22 11:46 BMI result Body Mass Index 29.3 Tobacco/Smoking Status: Tobacco use Status Tobacco use date assessed 06/13/22 12/04/22 11:49 Patient Tobacco Use Status Never used Tobacco 12/04/22 11:49 e-Cigarette/Vaping Use Never Used 12/04/22 11:49 Thrive Assessment: Date of Thrive Assessment Date Thrive assessed 04/10/22 12/04/22 11:49 Const General: well developed; No acute distress Nutritional Appearance: well nourished Orientation/consciousness: patient oriented x3 HENMT Head: Yes normocephalic and Yes atraumatic Eyes General: appearance normal, both eyes and all related structures Pupils: Equal, round and reactive pupils present EOM: EOMs intact bilaterally Resp Effort & Inspection: normal respiratory effort Neuro General: patient oriented x3 and gait normal Cranial nerves: Yes Equal, round and reactive pupils present Psych Affect: normal affect Assessment and Plan Assessment & Plan (1) Hypothyroidism: Code(s): E03.9 - Hypothyroidism, unspecified Plan: TSH level on now within normal limits after increasing levothyroxine to 150 mcg daily Will repeat testing including free T4 and total T3 and follow-up by telemedicine in about a month (2) Hair loss: Code(s): L65.9 - Nonscarring hair loss, unspecified Plan: Has had significant hair loss/thinning This is likely secondary to hypothyroidism which was poorly controlled. Will refer her to Dermatology as requested but she will hopefully continue to notice increased air thickness and decreased hair loss (3) Metacarpophalangeal joint pain: Code(s): M25.549 - Pain in joints of unspecified hand Plan: Left thumb pain and decreased range of motion/catching Likely some arthritis in tendinitis Trial ice/heat and NSAIDs If not improving will image and refer to hand surgeon Orders: Orders Basic Metabolic Panel Today E03.9 - Hypothyroidism, unspecified, Z00.00 - Encounter for general adult medical examination without abnormal findings Triiodothyronine T3 Total Today E03.9 - Hypothyroidism, unspecified Free T4 (Free Thyroxine) Today E03.9 - Hypothyroidism, unspecified Thyroid Stimulating Hormone Today E03.9 - Hypothyroidism, unspecified Referrals Dermatology Referral L65.9 - Nonscarring hair loss, unspecified Medications: New ibuprofen 400 mg PO Q8H 30 days PRN 90 tabs 1RF pain Coding Level of Care Code Est Pt Level 4 (50511) Diagnoses Hypothyroidism E03.9 Hair loss L65.9 Metacarpophalangeal joint pain M25.549
[2022-12-04 11:46] VITALS: BP 126/68; PULSE 75; O2SAT 99; BMI 29.3
== END 2022-12-04 12:32 | disposition home or self-care (01) ==
PROVIDERS: PCP Family Medicine; Visit Provider Family Medicine
DX: E03.9 Hypothyroidism, unspecified (principal); L65.9 Nonscarring hair loss, unspecified; M25.549 Pain in joints of unspecified hand
CPT/HCPCS: 99214

== ENCOUNTER 2022-12-27 13:27 | Outpatient (AMB) | payer OTHER, SELFPAY ==
--- NOTE | 2022-12-27 13:32 | A.OFFPC_ITS ---
Vital Signs 12/27/22 13:35 12/27/22 14:19 Height 5 ft 2 in Weight 153 lb BMI 28.0 BP 152/82 H Blood Pressure Location Rt brachial Lt brachial Position Sitting Respiration 12 Pulse 75 Pulse Source Pulse Oximeter Temp 97.9 F Temp Source Temporal Artery Scan Pulse Oximetry (%) 99 Oxygen Delivery Method Room Air Intake Visit Reasons: Dizzy for 2 weeks Intake Note: Patient states that she has been having high readings from the BP machine she is using at home. Patient brought in a list of her bps today. Patient states that she believes the BP machine is old and would like a order for a new one put in. Patient states that past 4 days her dizziness has been getting intense and she states she has pressure in left ear. Patient states that she feels a fluttering feeling in her stomach. Disintegrator Required: No Accompanied by: Self / Same As Patient Allergies nabumetone [From Relafen] Allergy (Intermediate, Verified 12/27/22 13:41) ITCHING shellfish derived Allergy (Intermediate, Verified 12/27/22 13:41) Swelling tramadol [Tramadol] Allergy (Mild, Verified 12/27/22 13:41) ITCHING bee sting Adverse Reaction (Mild, Uncoded 12/04/22 11:51) Redness of Skin Tobacco use date assessed: 06/13/22 Dental Screening Dental Screen Date: 12/27/22 Did you have a dental visit in the last 12 months?: Yes Did you have a dental problem in the last 6 months where you did not have access to dental care?: No Was dental information given to patient?: Patient has dentist HPI Dizzy for 2 weeks HPI Details 62 y/o female presents with complaints of dizziness x2 weeks. Patient states that she has been having high readings from the BP machine she is using at home. Patient brought in a list of her bps today. Patient states that she believes the BP machine is old and would like a order for a new one put in. Patient states that past 4 days her dizziness has been getting intense and she states she has pressure in left ear. Patient states that she feels a fluttering feeling in her stomach. Blood pressure today 152/82. She reports sometimes she feels dizzy when laying down. She reports for the past 2 days she had been experiencing chest pressure. She denies any sensation of the room spinning. [facility] Medical History Acid reflux Arthritis Bronchitis Degenerative disc disease Depression Elevated fasting blood sugar GERD (gastroesophageal reflux disease) History of cardiac murmur History of palpitations Hydroureter Irritable bowel syndrome (IBS) Lab test negative for COVID-19 virus Pulmonary nodules Thyroid disease Surgical History H/O colonoscopy H/O excision of ganglion cyst History of back surgery History of esophagogastroduodenoscopy (EGD) Hx of cholecystectomy Hx of tubal ligation Family History Father Asthma Mother Arthritis Medical history non-contributory Brother Colon cancer Brother No problems noted. Brother No problems noted. Sister No problems noted. Sister No problems noted. Sister No problems noted. Son No problems noted. Son No problems noted. Daughter No problems noted. Social History Household Members: None Household Members Other:: alone Housing: House Alcohol intake: never Patient Tobacco Use Status: Never used Tobacco e-Cigarette/Vaping Use: Never Used Second Hand Smoke Exposure: No service: No Current occupational status: disabled Current occupational exposures/hazards: No Cognitive needs: No Hearing needs: No Vision needs: No Questionnaire Thrive Questionnaire Date Thrive assessed: 04/10/22 YUMIKO-7 AMB Questionnaire YUMIKO-7 Date YUMIKO - 7 assessed: 01/01/22 Source: Developed by Drs. Brian Abreu, Daina Ahmadi, Ralph Redmond and colleagues, with an educational brian from [employer]. Review of Systems Const Denies chills, Denies fatigue, Denies fever(s), Denies headache(s) and Denies weakness ENT Denies dizziness and Denies headache(s) Card Denies chest pain, Denies lightheadedness, Denies dyspnea and Denies other (Palpitations) Resp Denies cough, Denies dyspnea, Denies wheezing and Denies other ( shortness of breath) Musc Denies numbness and Denies tingling Neuro Denies dizziness, Denies headache(s), Denies numbness, Denies tingling, Denies paresthesias and Denies weakness Psych Denies anxiety and Denies depression Endo Denies fatigue Aller/Immun Denies wheezing Physical exam (Primary Care) Vital Signs: Last Vital Signs Temp 97.9 F 12/27/22 13:35 Pulse 75 12/27/22 13:35 Resp 12 12/27/22 13:35 BP 152/82 H 12/27/22 14:19 Pulse Ox 99 12/27/22 13:35 Oxygen Delivery Method Room Air 12/27/22 13:35 BMI result Body Mass Index 28.0 Tobacco/Smoking Status: Tobacco use Status Tobacco use date assessed 06/13/22 12/27/22 13:34 Patient Tobacco Use Status Never used Tobacco 12/27/22 13:34 e-Cigarette/Vaping Use Never Used 12/27/22 13:34 Thrive Assessment: Date of Thrive Assessment Date Thrive assessed 04/10/22 12/27/22 13:34 Const General: no acute distress and well developed Nutritional Appearance: well nourished Orientation/consciousness: patient oriented x3 HENMT Head: Yes normocephalic and Yes atraumatic Eyes General: appearance normal, both eyes and all related structures Pupils: Equal, round and reactive pupils present EOM: EOMs intact bilaterally Resp Effort & Inspection: normal respiratory effort Auscultation: clear to auscultation bilaterally Cardio Other: 3/6 systolic murmur over the aorta and mitral regions Rate: regular rate Rhythm: regular rhythm Heart sounds: S1 normal heart sound present, S2 normal heart sound present, no gallops, Murmur heart sound present and no rubs Neuro General: patient oriented x3 and gait normal Cranial nerves: Yes Equal, round and reactive pupils present Psych Affect: normal affect Assessment and Plan Assessment & Plan (1) Chest pressure: Code(s): R07.89 - Other chest pain Plan: Patient has complaints of dizziness and occasional chest pressure. Denies chest pressure right now. Stress test in February met criteria for ischemia with ST changes in V4 through V6 that improved with rest/recovery EKG today at rest shows: Normal sinus rhythm with normal axis, normal intervals, no hypertrophy and no ST-T-wave abnormalities. Blood pressures have been elevated at home and here in the office today a though EKG does not show strain a here at rest. Will start antihypertensive to decrease her blood pressure. Checking labs including CBC and troponin. Checking chest x-ray Patient advised to go to the ED if having more chest pressure; concern for unstable angina. She has an upcoming appointment with cardiology but will go to the ED if having symptoms. (2) Dizziness: Code(s): R42 - Dizziness and giddiness Plan: Concerned that this is related to the above Treating her blood pressure and if she is still having any chest pressure or symptoms she will go to the ED (3) Hypertension: Code(s): I10 - Essential (primary) hypertension Plan: Starting metoprolol She will follow-up in 1 week Orders: Orders Basic Metabolic Panel Today R07.89 - Other chest pain, Z00.00 - Encounter for g eneral adult medical examination without abnormal findings Troponin-I High Sensitivity Today R07.89 - Other chest pain Complete Blood Count Auto Diff Today R07.89 - Other chest pain, Z00.00 - Encounter for general adult medical examination without abnormal findings XR chest 2V Today R07.89 - Other chest pain, R42 - Dizziness and giddiness AMB EKG-In Office Today R07.89 - Other chest pain Medications: New metoprolol succinate ER 25 mg PO DAILY 30 tabs 2RF 30 days Coding Level of Care Code Est Pt Level 4 (42158) Diagnoses Chest pressure R07.89 Dizziness R42 Hypertension I10
[2022-12-27 13:35] VITALS: PULSE 75; RESP 12; TEMP 36.6; O2SAT 99; BMI 28.0
[2022-12-27 14:19] VITALS: BP 152/82
== END 2022-12-27 14:31 | disposition home or self-care (01) ==
PROVIDERS: PCP Family Medicine; Visit Provider Family Medicine
DX: R07.89 Other chest pain (principal); R42 Dizziness and giddiness; I10 Essential (primary) hypertension
CPT/HCPCS: 99214

== ENCOUNTER 2022-12-27 15:00 | Outpatient (REF) | payer OTHER, SELFPAY ==
--- NOTE | ~2022-12-27 | XR_ITS ---
EXAMINATION: XR CHEST CLINICAL INFORMATION: Chest pain COMPARISON: 06/05/2022 TECHNIQUE: 2 views of the chest were obtained. FINDINGS: Lungs are clear with stable granuloma in the left lower lobe. Cardiomediastinal silhouette is normal There is dextroscoliosis of thoracic spine XR/XR chest 2V IMPRESSION: No active cardiopulmonary disease
[2022-12-27 15:13] LABS: MANUAL DIFF FLAG NO
[2022-12-27 15:46] LABS: Basophils Absolute Auto 0.1 X10*3/uL (0.0-0.2); Basophils Percent Auto 1.2 % (0-2); Eosinophils Absolute Auto 0.5 X10*3/uL (0.0-0.4); Hematocrit 39.1 % (37.0-47.0); Hemoglobin 12.8 g/dl (12.0-16.0); Imm Gran Abs Auto 0.03 X10*3/uL (0.00-0.03); Imm Gran Pct Auto 0.4 % (0.0-0.4); Lymphocytes Absolute Auto 2.7 X10*3/uL (1.2-4.9); Lymphocytes Percent Auto 35.5 % (20-40); Mean Corpuscular HGB Conc 32.7 g/dl (31.0-35.0); Mean Corpuscular Hemoglobin 29.6 pg (27.0-33.0); Mean Corpuscular Volume 90.5 fL (80.0-98.0); Monocytes Absolute Auto 0.4 X10*3/uL (0.1-1.2); Monocytes Percent Auto 5.6 % (2-11); Neutrophils Absolute Auto 3.8 x10*3/uL (2.0-8.3); Neutrophils Percent Auto 50.3 % (45-73); Platelet Count 196 X10*3/uL (160-400); Red Blood Count 4.32 X10*6/uL (4.20-5.50); Red Cell Distribution Width 12.8 % (11.0-16.0); White Blood Count 7.5 X10*3/uL (4.8-10.8)
[2022-12-27 16:22] LABS: Anion Gap 15 (12-20); Blood Urea Nitrogen 12 mg/dL (9-16); Calcium 10.4 mg/dL (8.4-10.2); Carbon Dioxide 26 mmol/L (22-29); Chloride 103 mmol/L (96-108); Estimated Glomerular Filt Rate > 60; Glucose Random 104 mg/dL (60-115); Potassium 4.8 mmol/L (3.3-5.1); Sodium 139 mmol/L (135-145)
[2022-12-27 16:25] LABS: Troponin-I High Sensitivity < 2.7 ng/L (<3.5-17.0)
[2022-12-27 16:41] LABS: Free T4 (Free Thyroxine) 1.15 ng/dL (0.71-1.85); Thyroid Stimulating Hormone 1.75 uIU/mL (0.32-4.0)
[2022-12-27 16:45] LABS: Appearance Urine Clear; Color Urine Yellow; Glucose Urine UA Negative (Negative); Leukocyte Esterase Urine Negative (Negative); Nitrite Urine Negative (Negative); PH 7.5 (5.0-9.0); Specific Gravity - Urine <= 1.005 (1.005-1.025); Urine Blood Negative (Negative); Urine Ketones Negative (Negative); Urine Protein Negative (Neg-Trace)
[2022-12-29 03:39] LABS: Triiodothyronine T3 Total 103 ng/dL (76-181)
== END 2022-12-27 15:01 | disposition home or self-care (01) ==
LOC: HO.LAB 15:00
PROVIDERS: PCP Family Medicine; Visit Provider Family Medicine
DX: Z00.00 Encounter for general adult medical examination without abnormal findings (principal); R07.89 Other chest pain; E03.9 Hypothyroidism, unspecified; R42 Dizziness and giddiness
CPT/HCPCS: 36415; 71046; 80048; 81003; 84439; 84443; 84480; 84484; 85025

== ENCOUNTER 2023-01-02 13:42 | Outpatient (AMB) | payer OTHER, SELFPAY ==
[2023-01-02 13:44] VITALS: BP 126/72; PULSE 78; O2SAT 100; BMI 28.0
--- NOTE | 2023-01-02 13:44 | A.OFFPC_ITS ---
Vital Signs 01/02/23 13:44 Height 5 ft 2 in Weight 153 lb BMI 28.0 BP 126/72 Blood Pressure Location Lt brachial Position Sitting Pulse 78 Pulse Source Pulse Oximeter Pulse Oximetry (%) 100 Oxygen Delivery Method Room Air Intake Visit Reasons: f/u chest pressure Intake Note: Patient is here for follow up on chest pressure, still feels dizzy, but not as before, and has been keeping track of her blood pressure. Last blood pressure was at noon 127/77, then an hour before meds was 145/83. Allergies nabumetone [From Relafen] Allergy (Intermediate, Verified 01/02/23 13:49) ITCHING shellfish derived Allergy (Intermediate, Verified 01/02/23 13:49) Swelling tramadol [Tramadol] Allergy (Mild, Verified 01/02/23 13:49) ITCHING bee sting Adverse Reaction (Mild, Uncoded 01/02/23 13:49) Redness of Skin Tobacco use date assessed: 01/02/23 Dental Screening Dental Screen Date: 01/02/23 Did you have a dental visit in the last 12 months?: Yes Did you have a dental problem in the last 6 months where you did not have access to dental care?: No Was dental information given to patient?: Patient has dentist HPI f/u chest pressure HPI Details 62 y/o female presents to f/u chest pres sure. She had complaints of dizziness and occasional chest pressure; concern for unstable angina. She had stated she has an upcoming appt. with cardiology. Chest x-ray 12/27/22 showed no active cardiopulmonary disease. Labs were reassuring - troponin levels were not elevated. She has an appt. with Cardiology next week. [facility] Medical History Bronchitis Pulmonary nodules Hydroureter Acid reflux Elevated fasting blood sugar Degenerative disc disease Arthritis Thyroid disease Irritable bowel syndrome (IBS) GERD (gastroesophageal reflux disease) Depression Lab test negative for COVID-19 virus History of cardiac murmur History of palpitations Surgical History History of back surgery Hx of cholecystectomy H/O excision of ganglion cyst History of esophagogastroduodenoscopy (EGD) Hx of tubal ligation H/O colonoscopy Family History Father Asthma Mother Arthritis Medical history non-contributory Brother Colon cancer Brother No problems noted. Brother No problems noted. Sister No problems noted. Sister No problems noted. Sister No problems noted. Son No problems noted. Son No problems noted. Daughter No problems noted. Social History Household Members: None Household Members Other:: alone Housing: House Alcohol intake: never Patient Tobacco Use Status: Never used Tobacco e-Cigarette/Vaping Use: Never Used Second Hand Smoke Exposure: No service: No Current occupational status: disabled Current occupational exposures/hazards: No Cognitive needs: No Hearing needs: No Vision needs: No Questionnaire Thrive Questionnaire Date Thrive assessed: 04/10/22 YUMIKO-7 AMB Questionnaire YUMIKO-7 Date YUMIKO - 7 assessed: 01/01/22 Source: Developed by Drs. Brian Abreu, Daina Ahmadi, Ralph Redmond and colleagues, with an educational brian from [employer]. Review of Systems Const Denies chills, Denies fatigue, Denies fever(s), Denies headache(s) and Denies weakness ENT Denies dizziness and Denies headache(s) Card Denies chest pain, Denies lightheadedness, Denies dyspnea and Denies other (Palpitations) Resp Denies cough, Denies dyspnea, Denies wheezing and Denies other ( shortness of breath) Musc Denies numbness and Denies tingling Neuro Denies dizziness, Denies headache(s), Denies numbness, Denies tingling, Denies paresthesias and Denies weakness Psych Denies anxiety and Denies depression Endo Denies fatigue Aller/Immun Denies wheezing Physical exam (Primary Care) Vital Signs: Last Vital Signs Pulse 78 01/02/23 13:44 BP 126/72 01/02/23 13:44 Pulse Ox 100 01/02/23 13:44 Oxygen Delivery Method Room Air 01/02/23 13:44 BMI result Body Mass Index 28.0 Tobacco/Smoking Status: Tobacco use Status Tobacco use date assessed 01/02/23 01/02/23 13:54 Patient Tobacco Use Status Never used Tobacco 01/02/23 13:54 e-Cigarette/Vaping Use Never Used 01/02/23 13:54 Thrive Assessment: Date of Thrive Assessment Date Thrive assessed 04/10/22 01/02/23 13:54 Const General: no acute distress and well developed Nutritional Appearance: well nourished Orientation/consciousness: patient oriented x3 HENMT Head: Yes normocephalic and Yes atraumatic Eyes General: appearance normal, both eyes and all related structures Pupils: Equal, round and reactive pupils present EOM: EOMs intact bilaterally Resp Effort & Inspection: normal respiratory effort Auscultation: clear to auscultation bilaterally Cardio Rate: regular rate Rhythm: regular rhythm Heart sounds: S1 normal heart sound present, S2 normal heart sound present, no gallops, no murmurs and no rubs Neuro General: patient oriented x3 and gait normal Cranial nerves: Yes Equal, round and reactive pupils present Psych Affect: normal affect Assessment and Plan Assessment & Plan (1) Chest pressure: Code(s): R07.89 - Other chest pain Plan: Lab work including troponin level were okay. Chest x-ray was negative She has an upcoming appointment with Dr. Hudson next week. Recommended she take it easy and till she sees Dr. Hudson but if she has sustained chest pain or pressure she should go to the ED. (2) Hypothyroidism: Code(s): E03.9 - Hypothyroidism, unspecified Plan: Thyroid hormone levels all within normal limits She had an appointment to follow-up on this for January 08 but she can cancel that. Coding Level of Care Code Est Pt Level 3 (04788) Diagnoses Chest pressure R07.89 Hypothyroidism E03.9
== END 2023-01-02 14:24 | disposition home or self-care (01) ==
PROVIDERS: PCP Family Medicine; Visit Provider Family Medicine
DX: R07.89 Other chest pain (principal); E03.9 Hypothyroidism, unspecified
CPT/HCPCS: 99213

== ENCOUNTER 2023-01-06 15:08 | Outpatient (AMB) | payer OTHER, SELFPAY ==
[2023-01-06 15:14] VITALS: BP 140/78; PULSE 70; BMI 28.0
--- NOTE | 2023-01-06 15:14 | MHC.OFFVIS ---
Intake Vital Signs 01/06/23 15:14 Height 5 ft 2 in Weight 153 lb BMI 28.0 BP 140/78 H Blood Pressure Location Rt brachial Position Sitting Pulse 70 Intake Visit Reasons: 6 month follow up Intake Note: Patient is present for 6 month follow up Patient states she has been experiencing high blood pressure. States she does not have chest pain but feels like she is anxious while her pressure is high. Todays Blood Pressure: 140/78 Pulse rate 70 Grievance And Appeals Coordinator Required: No Allergies nabumetone [From Relafen] Allergy (Intermediate, Verified 01/02/23 13:49) ITCHING shellfish derived Allergy (Intermediate, Verified 01/02/23 13:49) Swelling tramadol [Tramadol] Allergy (Mild, Verified 01/02/23 13:49) ITCHING bee sting Adverse Reaction (Mild, Uncoded 01/02/23 13:49) Redness of Skin Medication List - Last Reconciled 01/06/23 by Jesse Hudson MD budesonide-formoterol 160-4.5 mcg/actuation (Symbicort) 2 puffs inhalation BID 30 days buspirone 10 mg PO BID cholecalciferol (vitamin D3) (Vitamin D3) 25 mcg PO DAILY 30 days duloxetine 60 mg PO BEDTIME PRN fexofenadine 180 mg PO DAILY fluticasone propionate 50 mcg/actuation (Allergy Relief (fluticasone)) 2 sprays intranasal DAILY 1 month ibuprofen 400 mg PO Q8H PRN 30 days levothyroxine 150 mcg PO DAILY 30 days lorazepam 1 mg PO DAILY PRN magnesium citrate 800 mg PO BID mecobalamin (vitamin B12) 1,000 mcg sublingual DAILY metoprolol succinate ER 25 mg PO DAILY 30 days naloxone 4 mg/actuation (Narcan) 4 mg intranasal Q2M PRN oxycodone 10 mg PO Q12H PRN 30 days pantoprazole 20 mg PO QAM paroxetine HCl 10 mg PO BEDTIME PRN polyethylene glycol 3350 (Purelax) 17 grams PO DAILY wzbbqfx-wcql-elpqr-oreg-capryl 100 mg-150 mg- 50 mg-150 mg caps PO zolpidem 10 mg PO BEDTIME PRN HPI HPI Comments History of Present Illness Details 62-year-old female here for follow-up. She has background history of moderate aortic valve stenosis. She has been struggling with diarrhea and has lost significant weight. She is being seen by GI for that. He was complaining of palpitations previously and we arranged a Holter monitor which was normal. She was complaining of some chest discomfort on last visit. She had some risk factors for coronary disease. She was referred for exercise stress test. She developed ischemic appearing EKG changes without any significant symptoms. She continues to get some chest discomfort mostly complaining of some palpitations that her heart races suddenly. She is undergoing workup for her abdominal symptoms. She underwent CT enterography which showed constipation and fatty infiltration of the pancreas. She was referred for CT coronary angiogram which did not show any significant CAD. She is denying CP. She has some dyspnea and is following with Dr Okeefe. She continues to get some palpitations. Holter was normal previously. 01/06/23: She returns for follow-up. She is saying that she has been feeling palpitations at nighttime and has noticed her blood pressure to be elevated. She is hard primary care physician and was advised to start metoprolol succinate 25 mg once a day. She has been taking the regularly. She is still feeling palpitations at time but noticed that her heart rates are normal. No chest discomfort or any other concerning symptoms currently. [facility] Medical History Bronchitis Pulmonary nodules Hydroureter Acid reflux Elevated fasting blood sugar Degenerative disc disease Arthritis Thyroid disease Irritable bowel syndrome (IBS) GERD (gastroesophageal reflux disease) Depression Lab test negative for COVID-19 virus History of cardiac murmur History of palpitations Surgical History History of back surgery Hx of cholecystectomy H/O excision of ganglion cyst History of esophagogastroduodenoscopy (EGD) Hx of tubal ligation H/O colonoscopy Family History Father Asthma Mother Arthritis Medical history non-contributory Brother Colon cancer Brother No problems noted. Brother No problems noted. Sister No problems noted. Sister No problems noted. Sister No problems noted. Son No problems noted. Son No problems noted. Daughter No problems noted. Social History Household Members: None Household Members Other:: alone Housing: House Alcohol intake: never Patient Tobacco Use Status: Never used Tobacco e-Cigarette/Vaping Use: Never Used Second Hand Smoke Exposure: No service: No Current occupational status: disabled Current occupational exposures/hazards: No Cognitive needs: No Hearing needs: No Vision needs: No Physical Exam Vital Signs: BMI result Body Mass Index 28.0 GENERAL APPEARANCE: in no acute distress, well developed, well nourished. NECK/THYROID: no carotid bruit, no jugular venous distention. SKIN: no suspicious lesions, warm and dry. HEART: Ejection systolic murmur in the aortic area with preserved 2nd heart sound. Murmur radiation to carotids. LUNGS: clear to auscultation bilaterally. ABDOMEN: normal, bowel sounds present, soft, nontender, nondistended. EXTREMITIES: no clubbing, cyanosis, or edema. PERIPHERAL PULSES: equal. NEUROLOGIC: nonfocal, alert and oriented. PSYCH: mood/affect full range. Assessment & Plan Assessment & Plan (1) Hypertension: Code(s): I10 - Essential (primary) hypertension (2) Moderate aortic stenosis: Comment: Moderate Code(s): I35.0 - Nonrheumatic aortic (valve) stenosis Plan Pleasant 62-year-old female who is here for follow-up. She has known history of moderate aortic valve stenosis. She has high blood pressure and was started on metoprolol succinate. She has palpitations off and on. I think metoprolol succinate can be increased to b.i.d.. Will bring her back in the office in few weeks to reassess her blood pressure. Moderate aortic stenosis and currently we are going to monitor her. Thank you for allowing me to participate in the care of your patient. Please feel free to contact me if you have any questions. Medications: Changed From metoprolol succinate ER 25 mg PO DAILY 30 days 30 tabs 2RF To metoprolol succinate ER 25 mg PO BID 30 days 90 tabs 3RF Coding Level of Care Code Est Pt Level 4 (56716) Diagnoses Hypertension I10 Moderate aortic stenosis I35.0
== END 2023-01-06 16:02 | disposition home or self-care (01) ==
PROVIDERS: PCP Family Medicine; Referring Provider Family Medicine; Visit Provider Internal Medicine Cardiovascular Disease
DX: I10 Essential (primary) hypertension (principal); I35.0 Nonrheumatic aortic (valve) stenosis
CPT/HCPCS: 99214

== ENCOUNTER → 2023-01-06 15:08 | Outpatient (BNVA) | payer OTHER, SELFPAY | PROVIDERS: PCP Family Medicine; Referring Provider Family Medicine; Visit Provider Internal Medicine Cardiovascular Disease | DX: I10 Essential (primary) hypertension (principal); I35.0 Nonrheumatic aortic (valve) stenosis; Z79.899 Other long term (current) drug therapy | CPT/HCPCS: 99212 ==

== ENCOUNTER 2023-01-08 15:19 | Outpatient (AMB) | payer OTHER, SELFPAY ==
--- NOTE | 2023-01-08 15:17 | MHC.PC.OV ---
Intake Visit Reasons: f/u labs Intake Note: Patient reports she has a telehealth appointment to discuss labs. Scale Tank Operator Required: No Scale Tank Operator Name: patient declines Accompanied by: Self / Same As Patient Allergies nabumetone [From Relafen] Allergy (Intermediate, Verified 01/08/23 15:19) ITCHING shellfish derived Allergy (Intermediate, Verified 01/08/23 15:19) Swelling tramadol [Tramadol] Allergy (Mild, Verified 01/08/23 15:19) ITCHING bee sting Adverse Reaction (Mild, Uncoded 01/02/23 13:49) Redness of Skin Tobacco use date assessed: 01/02/23 HPI f/u labs HPI Details Pt presents to f/u labs and chest pressure via telemedicine. Labs were drawn 12/27/22. Reviewed labs with pt. TSH levels 1.75. She had seen Cardiology 01/06/23 and they had increased her metoprolol from 25mg daily to b.i.d. She is tolerating this medication regimen well. She notes chest pressure feels improved. [facility] Medical History Bronchitis Pulmonary nodules Hydroureter Acid reflux Elevated fasting blood sugar Degenerative disc disease Arthritis Thyroid disease Irritable bowel syndrome (IBS) GERD (gastroesophageal reflux disease) Depression Lab test negative for COVID-19 virus History of cardiac murmur History of palpitations Surgical History History of back surgery Hx of cholecystectomy H/O excision of ganglion cyst History of esophagogastroduodenoscopy (EGD) Hx of tubal ligation H/O colonoscopy Family History Father Asthma Mother Arthritis Medical history non-contributory Brother Colon cancer Brother No problems noted. Brother No problems noted. Sister No problems noted. Sister No problems noted. Sister No problems noted. Son No problems noted. Son No problems noted. Daughter No problems noted. Social History Household Members: None Household Members Other:: alone Housing: House Alcohol intake: never Patient Tobacco Use Status: Never used Tobacco e-Cigarette/Vaping Use: Never Used Second Hand Smoke Exposure: No service: No Current occupational status: disabled Current occupational exposures/hazards: No Cognitive needs: No Hearing needs: No Vision needs: No Questionnaire Thrive Questionnaire Date Thrive assessed: 04/10/22 YUMIKO-7 AMB Questionnaire YUMIKO-7 Date YUMIKO - 7 assessed: 01/01/22 Source: Developed by Drs. Brian Abreu, Daina Ahmadi, Ralph Redmond and colleagues, with an educational brian from [employer]. Physical exam (Primary Care) Tobacco/Smoking Status: Tobacco use Status Tobacco use date assessed 01/02/23 01/08/23 15:20 Patient Tobacco Use Status Never used Tobacco 01/08/23 15:20 e-Cigarette/Vaping Use Never Used 01/08/23 15:20 Thrive Assessment: Date of Thrive Assessment Date Thrive assessed 04/10/22 01/08/23 15:20 Telehealth Telehealth Location of provider rendering services: practice address Location of patient: address on file Patient Identification confirmed using: Name, : Yes Telehealth method: voice only Patient verbally consented to treatment: Yes Patient verbally consented to billing insurance company: Yes Patient informed of any privacy concerns related to visit: Yes Minutes spent on Phone/Video with Pt.: 5 Assessment and Plan Assessment & Plan (1) Hypothyroidism: Code(s): E03.9 - Hypothyroidism, unspecified Plan: I had increased her levothyroxine from 137 mcg to 150 mcg daily Thyroid hormone levels all within normal limits now Continue levothyroxine 150 mcg daily (2) Chest pressure: Code(s): R07.89 - Other chest pain Plan: Had added metoprolol for better blood pressure control and patient has a history of aortic stenosis as well. Recently saw her wafer abrading machine tender to increased the metoprolol further Patient says chest pressure has abated. She is tolerating metoprolol She has a follow-up appointment with her wafer abrading machine tender in 1 month. (3) Hypertension: Code(s): I10 - Essential (primary) hypertension Plan: Tolerating metoprolol as prescribed and this was recently increased to twice a day dosing by her wafer abrading machine tender. She is tolerating this regimen well Continue metoprolol 25 mg b.i.d. We will follow-up in a few months Coding Level of Care Code Tele Est Pt Level 2 (94496) Diagnoses Hypothyroidism E03.9 Chest pressure R07.89 Hypertension I10
== END 2023-01-08 16:08 | disposition home or self-care (01) ==
PROVIDERS: PCP Family Medicine; Visit Provider Family Medicine
DX: E03.9 Hypothyroidism, unspecified (principal); R07.89 Other chest pain; I10 Essential (primary) hypertension
CPT/HCPCS: 99212

== ENCOUNTER 2023-03-04 09:48 | Outpatient (AMB) | payer OTHER, SELFPAY ==
[2023-03-04 09:51] VITALS: BP 134/80; PULSE 74; BMI 29.4
--- NOTE | 2023-03-04 09:51 | A.OFFVIS_ITS ---
Intake Vital Signs 03/04/23 09:51 Height 5 ft 2 in Weight 160 lb 14.999 oz BMI 29.4 BP 134/80 Blood Pressure Location Lt brachial Position Sitting Pulse 74 Pulse Source Pulse Oximeter Intake Visit Reasons: f/u Intake Note: f/u Soil Tester Required: No Allergies nabumetone [From Relafen] Allergy (Intermediate, Verified 03/04/23 09:59) ITCHING shellfish derived Allergy (Intermediate, Verified 03/04/23 09:59) Swelling tramadol [Tramadol] Allergy (Mild, Verified 03/04/23 09:59) ITCHING bee sting Adverse Reaction (Mild, Uncoded 01/02/23 13:49) Redness of Skin Medication List - Last Reconciled 03/04/23 by SHIRA Mejia budesonide-formoterol 160-4.5 mcg/actuation (Symbicort) 2 puffs inhalation BID 30 days buspirone 10 mg PO BID cholecalciferol (vitamin D3) (Vitamin D3) 25 mcg PO DAILY 30 days duloxetine 60 mg PO BEDTIME PRN fexofenadine 180 mg PO DAILY fluticasone propionate 50 mcg/actuation (Allergy Relief (fluticasone)) 2 sprays intranasal DAILY 1 month ibuprofen 400 mg PO Q8H PRN 30 days levothyroxine 150 mcg PO DAILY 30 days lorazepam 1 mg PO DAILY PRN magnesium citrate 800 mg PO BID mecobalamin (vitamin B12) 1,000 mcg sublingual DAILY metoprolol succinate ER 25 mg PO BID 30 days naloxone 4 mg/actuation (Narcan) 4 mg intranasal Q2M PRN oxycodone 10 mg PO Q12H PRN 30 days pantoprazole 20 mg PO QAM paroxetine HCl 10 mg PO BEDTIME PRN polyethylene glycol 3350 (Purelax) 17 grams PO DAILY kipwzji-jnom-xoqiu-oreg-capryl 100 mg-150 mg- 50 mg-150 mg caps PO zolpidem 10 mg PO BEDTIME PRN HPI f/u HPI Details Margarette is a 62-year-old female with past medical history of hypertension, moderate aortic stenosis, reports of chest discomfort who presents for follow- up. On last visit her blood pressure was elevated and metoprolol dose was increased. Today she reports she has been feeling well since her last visit. Home blood pressures checked periodically with systolic in the 120s. She does get chest pressure at times which is not new. This is the symptom that she has talked to Dr Hudson about on prior visits. No new chest discomfort. No shortness of breath, palpitations, presyncope, syncope, PND, orthopnea or edema. Taking meds as directed. Is active throughout the day with normal ADLs. [facility] Medical History Bronchitis Pulmonary nodules Hydroureter Acid reflux Elevated fasting blood sugar Degenerative disc disease Arthritis Thyroid disease Irritable bowel syndrome (IBS) GERD (gastroesophageal reflux disease) Depression Lab test negative for COVID-19 virus History of cardiac murmur History of palpitations Surgical History History of back surgery Hx of cholecystectomy H/O excision of ganglion cyst History of esophagogastroduodenoscopy (EGD) Hx of tubal ligation H/O colonoscopy Family History Father Asthma Mother Arthritis Medical history non-contributory Brother Colon cancer Brother No problems noted. Brother No problems noted. Sister No problems noted. Sister No problems noted. Sister No problems noted. Son No problems noted. Son No problems noted. Daughter No problems noted. Social History Household Members: None Household Members Other:: alone Housing: House Alcohol intake: never Patient Tobacco Use Status: Never used Tobacco e-Cigarette/Vaping Use: Never Used Second Hand Smoke Exposure: No service: No Current occupational status: disabled Current occupational exposures/hazards: No Cognitive needs: No Hearing needs: No Vision needs: No Review of Systems Const All systems reviewed & are unremarkable except as noted in HPI and below ENT Denies dizziness Card Details: Chest pressure at times, not new Denies chest pain, Denies chest pain at rest, Denies chest pain with activity, Denies rapid heart rate, Denies pedal edema, Denies edema, Denies leg edema, Denies lightheadedness, Denies palpitations, Reports dyspnea (extra breaths at times), Denies dyspnea on exertion and Denies orthopnea Resp Denies cough, Reports dyspnea (extra breaths at times) and Denies dyspnea on exertion GI Denies hematochezia and Denies change in stool character Musc Denies abnormal gait, Denies limited range of motion, Denies muscle cramps, Denies muscle weakness, Denies numbness, Denies radiating pain into limb, Denies stiffness and Denies tingling Neuro Denies abnormal gait, Denies dizziness, Denies numbness and Denies tingling Endo Denies palpitations Physical Exam Vital Signs: Last Vital Signs Pulse 74 03/04/23 09:51 BP 134/80 03/04/23 09:51 BMI result Body Mass Index 29.4 Const General: cooperative, healthy appearing, comfortable and no acute distress Orientation/consciousness: patient oriented x3 Neck Neck: Yes normal visual inspection Resp Effort & Inspection: normal respiratory effort Auscultation: clear to auscultation bilaterally, no crackles, no rales, no rhonchi and no wheezes Cardio Jugular venous distension: no JVD Rate: regular rate Rhythm: regular rhythm Heart sounds: S1 normal heart sound present, S2 normal heart sound present, Murmur heart sound present (2/6 systolic, second heart sound present) and no rubs Neuro General: patient oriented x3 Extrem General: Yes normal to inspection, No no pedal edema and No calf tenderness Psych Appearance: grossly normal Mental Status: mental status grossly normal Speech and movement: Normal speech and movement present Assessment & Plan Assessment & Plan (1) Hypertension: Code(s): I10 - Essential (primary) hypertension Qualifiers: Hypertension type: primary hypertension Qualified Code(s): I10 - Esse ntial (primary) hypertension Plan: Blood pressure mildly elevated last visit. Metoprolol dose was from once daily to 25 mg b.i.d.. Home blood pressures reported as 120s systolic. Blood pressure today 134/80. Continue current management without change. (2) Moderate aortic stenosis: Comment: Moderate Code(s): I35.0 - Nonrheumatic aortic (valve) stenosis Plan: History of moderate aortic stenosis. Last echocardiogram 09/28/2021 showed EF 55%, moderate with mean gradient 16 mmHg, normal RV. Heart murmur noted on examination today, does not sound severe as 2nd heart tone is present. Will update echocardiogram for documentation of gradients. Cardinal signs of severe reviewed with her including chest discomfort, shortness of breath, presyncope, syncope. Cardiology office visit 6 months, sooner if needed. (3) Chest pressure: Code(s): R07.89 - Other chest pain Plan: Chronic reports of chest pressure, random. A CTA of the coronary arteries was done on 05/03/2022 showing no significant coronary artery disease. Signs and symptoms of true angina reviewed with her. Orders: Orders CA echo transthoracic complete Today I35.0 - Nonrheumatic aortic (valve) stenosis Coding Level of Care Code Est Pt Level 4 (35838) Diagnoses Primary hypertension I10 Hypertension type: primary hypertension Moderate aortic stenosis I35.0 Chest pressure R07.89 Time Spent (min) 26
== END 2023-03-04 10:36 | disposition home or self-care (01) ==
PROVIDERS: PCP Family Medicine; Visit Provider Nurse Practitioner Family
DX: I10 Essential (primary) hypertension (principal); I35.0 Nonrheumatic aortic (valve) stenosis; R07.89 Other chest pain
CPT/HCPCS: 99214

== ENCOUNTER → 2023-03-04 09:48 | Outpatient (BNVA) | payer OTHER, SELFPAY | PROVIDERS: PCP Family Medicine; Visit Provider Nurse Practitioner Family | DX: I35.0 Nonrheumatic aortic (valve) stenosis (principal); I10 Essential (primary) hypertension; R07.89 Other chest pain | CPT/HCPCS: 99212 ==

== ENCOUNTER → 2023-04-07 10:45 | Outpatient (REF) | payer OTHER, SELFPAY ==
--- NOTE | 2023-04-07 10:48 | CA_ITS ---
Transthoracic Echocardiogram Patient (Last, First, Middle): Margarette Fry, Gender: Female Date of : 1960 Age: 62 Procedure Date: 04/07/2023 Procedure Type: Transthoracic Echocardiogram Location: OP Height: 157.48 cm Weight: 72.58 kg BSA: 1.74 m2 Heart Rate: bpm BP: 130 / 80 mmHg Oracle Manager: JIM Referring MD: Eli Gao [facility]ICK[facility] PICKER-[place] Symptoms: I35.0 - Nonrheumatic aortic (valve) stenosis Study Quality: Adequate ECG Rhythm: Sinus Conclusions: - The left ventricular systolic function is normal. The calculated ejection fraction is 69% by biplane method. - Moderate to severe aortic stenosis. Measured gradients and calculated valve area are discrepant. Suspect bicuspid valve. Findings Left Ventricle Normal left ventricular cavity size. The left ventricular systolic function is normal. The calculated ejection fraction is 69% by biplane method. There is no evidence of regional wall motion abnormalities. Diastolic function is normal for age. There is mild septal asymmetric hypertrophy. LV peak GLS 19.1%. Right Ventricle Normal right ventricular cavity size and systolic function. Atria Both atria are normal in size. Aortic Valve There is moderate calcification of the aortic valve. The peak aortic velocity is 3.29 m/s with a calculated peak gradient of 43 mmHg. The mean gradient is 27 mmHg. The aortic valve area is 0.79 cm2. There is no aortic valve regurgitation. Dimensionless index 0.25. Stroke volume index 43ml/m2. Mitral Valve The mitral valve appears normal. There is trace mitral valve regurgitation. There is no mitral valve stenosis. Pulmonic Valve The pulmonic valve is likely normal. Tricuspid Valve Normal tricuspid valve structure. There is trace tricuspid valve regurgitation. There is no evidence of pulmonary hypertension. Great Vessels The asc aorta is normal in size. Venous The inferior vena cava is normal in size and collapses greater than 50% with inspiration. Pericardium/Pleural There is no evidence of pericardial effusion. Prior Study Comparison Changes noted compared to prior study dated: 09/28/2021. Progression of aortic valve stenosis. Measurements 2D Linear Measurements IVSd: 1.05 0.6-0.9/0.6-1.0 cm LVIDd: 4.72 3.9-5.3/4.2-5.9 cm LVIDd Index: 2.71 2.4-3.2/2.2-3.1 cm/m2 LVIDs: 3.40 2.0-3.6 cm LVPWd: 0.53 0.7-1.1 cm LA Diam: 3.20 2.7-3.8/3.0-4.0 cm LAIDs Index: 1.84 1.5-2.3 cm/m2 LV Mass: 150.94 67-162/88-224 g LV Mass Index: 86.75 43-95/49-115 g/m2 LVOT Diam: 2.00 3.0+(-)1.3 cm 2D Systolic Function EF 4C: 65.20 >55% EF 2C: 68.60 >55% EF BiP: 68.60 >55% Mitral Valve MV Pk E: 0.71 MV PK A: 0.65 MV Decel Time: 184.00 E/A: 1.10 E'Lateral: 8.92 E'Medial: 7.40 E/E' Med: 9.50 E/E' Lat: 7.90 PHT: 54.00 MVA PHT: 4.07 Decel [place]: 3.83 Aortic Valve AoV Pk Lion: 3.29 AoV Mn Lion: 2.50 AoV VTI: 0.94 AoV Pk Grad: 43.00 Aov Mn Grad: 27.00 GENIA Cont.VTI: 0.79 LVOT LVOT Pk Lion: 0.81 LVOT Mn Lion: 0.58 LVOT VTI: 0.24 LVOT Pk Grad: 3.00 LVOT Mn Grad: 2.00 LVOT Diam: 2.00 LVOT Area: 3.14 Diastolic Function MV Pk E: 0.71 MV Pk A: 0.65 E/A: 1.10 E'Medial: 7.40 E/E' Med: 9.50 E' Laterial: 8.92 E/E' Lat: 7.90 Right Ventricle TAPSE (mm): 25.40 TVS' Lion: 9.57 Tricuspid Valve TR Pk Lion: 2.46 TR Pk Grad: 24.00 RA Press: 3.00 RVSP: 27.00 Great Vessels Aorta Sinus of Valsalva: 2.85 2.0-3.[address] [place]: 1.93 1.7-3.4 cm Ao Asc: 3.00 2.1-3.4 cm Updated in Other Vendor System with Status of Final Mehul Chong MD electronically signed on 04/07/2023 1:15:40 PM with status of Final
== END ==
LOC: HO.CARD 10:45
PROVIDERS: PCP Family Medicine; Visit Provider Nurse Practitioner Family
DX: I35.0 Nonrheumatic aortic (valve) stenosis (principal)
CPT/HCPCS: 93306; 93356

== ENCOUNTER → 2023-04-07 10:48 | Outpatient (BNV) | payer OTHER, SELFPAY | PROVIDERS: PCP Family Medicine; Visit Provider Internal Medicine | DX: I35.0 Nonrheumatic aortic (valve) stenosis (principal) | CPT/HCPCS: 93306 ==

== ENCOUNTER 2023-04-08 11:16 | Outpatient (AMB) | payer OTHER, SELFPAY ==
[2023-04-08 11:19] VITALS: BP 132/74; PULSE 66; O2SAT 97; BMI 29.9
--- NOTE | 2023-04-08 11:19 | A.OFFPC_ITS ---
Vital Signs 04/08/23 11:19 Height 5 ft 2 in Weight 163 lb 6 oz BMI 29.9 BP 132/74 Blood Pressure Location Lt brachial Position Sitting Pulse 66 Pulse Source Pulse Oximeter Pulse Oximetry (%) 97 Oxygen Delivery Method Room Air Intake Visit Reasons: f/u hypertension and chronic conditions Intake Note: Patient is here to follow up on hypertension and chronic conditions. Patient is complaining of pain in outerside of arms and legs. Allergies nabumetone [From Relafen] Allergy (Intermediate, Verified 04/08/23 11:22) ITCHING shellfish derived Allergy (Intermediate, Verified 04/08/23 11:22) Swelling tramadol [Tramadol] Allergy (Mild, Verified 04/08/23 11:22) ITCHING bee sting Adverse Reaction (Mild, Uncoded 04/08/23 11:22) Redness of Skin Medication List - Last Reconciled 04/08/23 by Jakob Orellana MD budesonide-formoterol 160-4.5 mcg/actuation (Symbicort) 2 puffs inhalation BID 30 days buspirone 10 mg PO BID cholecalciferol (vitamin D3) (Vitamin D3) 25 mcg PO DAILY 30 days duloxetine 60 mg PO BEDTIME PRN fexofenadine 180 mg PO DAILY fluticasone propionate 50 mcg/actuation (Allergy Relief (fluticasone)) 2 sprays intranasal DAILY 1 month ibuprofen 400 mg PO Q8H PRN 30 days [ISDIN lampdapil PO] levothyroxine 150 mcg PO DAILY 30 days lorazepam 1 mg PO DAILY PRN magnesium citrate 800 mg PO BID mecobalamin (vitamin B12) 1,000 mcg sublingual DAILY metoprolol succinate ER 25 mg PO BID 30 days naloxone 4 mg/actuation (Narcan) 4 mg intranasal Q2M PRN oxycodone 10 mg PO Q12H PRN 30 days pantoprazole 20 mg PO QAM paroxetine HCl 10 mg PO BEDTIME PRN polyethylene glycol 3350 (Purelax) 17 grams PO DAILY wtffmum-mwja-lqyyu-oreg-capryl 100 mg-150 mg- 50 mg-150 mg caps PO zolpidem 10 mg PO BEDTIME PRN Tobacco use date assessed: 04/08/23 HPI f/u hypertension and chronic conditions HPI Details 62 y/o female presents to f/u hypertensi on. Blood pressure today 132/74. She is on metorpolol 25mg b.i.d. Pt reports pain bilateral arms and legs. [facility] Medical History Bronchitis Pulmonary nodules Hydroureter Acid reflux Elevated fasting blood sugar Degenerative disc disease Arthritis Thyroid disease Irritable bowel syndrome (IBS) GERD (gastroesophageal reflux disease) Depression Lab test negative for COVID-19 virus History of cardiac murmur History of palpitations Surgical History History of back surgery Hx of cholecystectomy H/O excision of ganglion cyst History of esophagogastroduodenoscopy (EGD) Hx of tubal ligation H/O colonoscopy Family History Father Asthma Mother Arthritis Medical history non-contributory Brother Colon cancer Brother No problems noted. Brother No problems noted. Sister No problems noted. Sister No problems noted. Sister No problems noted. Son No problems noted. Son No problems noted. Daughter No problems noted. Social History Household Members: None Household Members Other:: alone Housing: House Alcohol intake: never Patient Tobacco Use Status: Never used Tobacco e-Cigarette/Vaping Use: Never Used Second Hand Smoke Exposure: No service: No Current occupational status: disabled Current occupational exposures/hazards: No Cognitive needs: No Hearing needs: No Vision needs: No Questionnaire PHQ-9 Over the last 2 weeks, how often have you been bothered by any of the following problems? 1. Little interest or pleasure in doing things: not at all 2. Feeling down, depressed, or hopeless: not at all 3. Trouble falling or staying asleep, or sleeping too much: not at all 4. Feeling tired or having little energy: not at all 5. Poor appetite or overeating: not at all 6. Feeling bad about yourself - or that you are a failure or have let yourself or your family down: not at all 7. Trouble concentrating on things, such as reading the newspaper or watching television: not at all 8. Moving or speaking so slowly that other people could have noticed. Or the opposite - being so fidgety or restless that you have been moving around a lot more than usual: not at all 9. Thoughts that you would be better off or of hurting yourself in some way: not at all Total score: 0 Source: Developed by Drs. Brian Abreu, Daina Ahmadi, Ralph Redmond and colleagues, with an educational brian from [employer]. Thrive Questionnaire Date Thrive assessed: 04/10/22 YUMIKO-7 AMB Questionnaire YUMIKO-7 Date YUMIKO - 7 assessed: 04/08/23 Feeling nervous, anxious, or on edge: 0 = Not at all Not being able to stop or control worryin = Not at all Worrying too much about different things: 0 = Not at all Trouble relaxin = Not at all Being so restless that it is hard to sit still: 0 = Not at all Becoming easily annoyed or irritable: 0 = Not at all Feeling afraid as if something awful might happen: 0 = Not at all Total YUMIKO-7 score (0-4 normal; 5-9 mild; 10-14 moderate; 15-21 severe): 0 Source: Developed by Drs. Brian Abreu, Daina Ahmadi, Ralph Redmond and colleagues, with an educational brian from [employer]. Review of Systems Const Denies chills, Denies fatigue, Denies fever(s), Denies headache(s) and Denies weakness ENT Denies dizziness and Denies headache(s) Card Denies chest pain, Denies lightheadedness, Denies dyspnea and Denies other (Palpitations) Resp Denies cough, Denies dyspnea, Denies wheezing and Denies other ( shortness of breath) Musc Denies numbness and Denies tingling Neuro Denies dizziness, Denies headache(s), Denies numbness, Denies tingling, Denies paresthesias and Denies weakness Psych Denies anxiety and Denies depression Endo Denies fatigue Aller/Immun Denies wheezing Physical exam (Primary Care) Vital Signs: Last Vital Signs Pulse 66 04/08/23 11:19 BP 132/74 04/08/23 11:19 Pulse Ox 97 04/08/23 11:19 Oxygen Delivery Method Room Air 04/08/23 11:19 BMI result Body Mass Index 29.9 Tobacco/Smoking Status: Tobacco use Status Tobacco use date assessed 04/08/23 04/08/23 11:33 Patient Tobacco Use Status Never used Tobacco 04/08/23 11:33 e-Cigarette/Vaping Use Never Used 04/08/23 11:33 PHQ-9: PHQ-9 Score PHQ-9: Total score 0 04/08/23 11:53 Thrive Assessment: Date of Thrive Assessment Date Thrive assessed 04/10/22 04/08/23 11:33 Const General: no acute distress and well developed Nutritional Appearance: well nourished Orientation/consciousness: patient oriented x3 HENMT Head: Yes normocephalic and Yes atraumatic Eyes General: appearance normal, both eyes and all related structures Pupils: Equal, round and reactive pupils present EOM: EOMs intact bilaterally Resp Effort & Inspection: normal respiratory effort Auscultation: clear to auscultation bilaterally Cardio Rate: regular rate Rhythm: regular rhythm Heart sounds: S1 normal heart sound present, S2 normal heart sound present, no gallops, Murmur heart sound present and no rubs Neuro General: patient oriented x3 and gait normal Cranial nerves: Yes Equal, round and reactive pupils present Psych Affect: normal affect Assessment and Plan Assessment & Plan (1) Hypertension: Code(s): I10 - Essential (primary) hypertension Qualifiers: Hypertension type: primary hypertension Qualified Code(s): I10 - Essential (primary) hypertension Plan: Blood?pressure?is?fairly?well?controlled.??Goal?is?less?than?130/80 Continue?current?medication Encouraged?exercise?as?tolerated Encouraged?sodium/salt?avoidance?and?plenty?of?sleep (2) Moderate aortic stenosis: Comment: Moderate Code(s): I35.0 - Nonrheumatic aortic (valve) stenosis Plan: Follow-up?with?Cardiology?as?recommended Orders: Orders PT Evaluation and Treatment Today M79.601 - Pain in right arm, M79.602 - Pain in left arm, M79.661 - Pain in right lower leg, M79.662 - Pain in left lower leg, R29.898 - Other symptoms and signs involving the musculoskeletal system Coding Level of Care Code Est Pt Level 3 (27445) Diagnoses Primary hypertension I10 Hypertension type: primary hypertension Moderate aortic stenosis I35.0
== END 2023-04-08 12:08 | disposition home or self-care (01) ==
PROVIDERS: PCP Family Medicine; Visit Provider Family Medicine
DX: I10 Essential (primary) hypertension (principal); I35.0 Nonrheumatic aortic (valve) stenosis
CPT/HCPCS: 99213

== ENCOUNTER 2023-06-17 13:45 | Outpatient (REF) | payer OTHER, SELFPAY ==
--- NOTE | ~2023-06-17 | US_ITS ---
EXAMINATION: US RETROPERITONEAL LIMITED (RENAL ONLY) CLINICAL INFORMATION: Hydroureter. COMPARISON: CT enterography abdomen and pelvis 04/02/2022. Ultrasound abdomen complete 09/28/2021 and 04/15/2019. TECHNIQUE: Real-time imaging of the kidneys. Limited visualization due to bowel gas. FINDINGS: RIGHT KIDNEY: 10.3 x 3.6 x 4.1 cm (SAG x AP x TRV). Redemonstration of extrarenal pelvis. Possible duplicated renal vessels along the upper pole difficult to confirm due to limited visualization. No renal calculi. Renal cortical thickness is normal. LEFT KIDNEY: 10.3 x 5.8 x 4.9 cm (SAG x AP x TRV). Redemonstration of extrarenal pelvis. No renal calculi. Renal cortical thickness is normal. US/US renal BI IMPRESSION: Redemonstration of bilateral extrarenal pelves. No renal calculi.
== END 2023-06-17 13:46 | disposition home or self-care (01) ==
LOC: HO.US 13:45
PROVIDERS: PCP Family Medicine; Visit Provider Nurse Practitioner Family
DX: N13.4 Hydroureter (principal)
CPT/HCPCS: 76775

== ENCOUNTER 2023-06-30 15:38 | Outpatient (AMB) | payer OTHER, SELFPAY ==
--- NOTE | 2023-06-30 15:47 | A.OFFPC_ITS ---
Vital Signs 06/30/23 15:48 Height 5 ft 2 in Weight 167 lb 8 oz BMI 30.6 BP 130/70 Blood Pressure Location Lt brachial Position Sitting Pulse 75 Pulse Source Pulse Oximeter Temp 98.9 F Temp Source Oral Pulse Oximetry (%) 96 Intake Visit Reasons: Cold symptoms Intake Note: Patient is here with headache, cough, with phlegm, night sweats, body aches for 4 days. Her granddaughter has the flu. Allergies nabumetone [From Relafen] Allergy (Intermediate, Verified 06/30/23 15:52) ITCHING shellfish derived Allergy (Intermediate, Verified 06/30/23 15:52) Swelling tramadol [Tramadol] Allergy (Mild, Verified 06/30/23 15:52) ITCHING bee sting Adverse Reaction (Mild, Uncoded 06/30/23 15:52) Redness of Skin Tobacco use date assessed: 06/30/23 HPI Cold symptoms HPI Details 62 y/o female presents today with compla ints of a cold. Pt reports headaches, cough, night sweats, body aches x4 days. Pt reports granddaughter has the flu. PFSH Medical History Bronchitis Pulmonary nodules Hydroureter Acid reflux Elevated fasting blood sugar Degenerative disc disease Arthritis Thyroid disease Irritable bowel syndrome (IBS) GERD (gastroesophageal reflux disease) Depression Lab test negative for COVID-19 virus History of cardiac murmur History of palpitations Surgical History History of back surgery Hx of cholecystectomy H/O excision of ganglion cyst History of esophagogastroduodenoscopy (EGD) Hx of tubal ligation H/O colonoscopy Family History Father Asthma Mother Arthritis Medical history non-contributory Brother Colon cancer Brother No problems noted. Brother No problems noted. Sister No problems noted. Sister No problems noted. Sister No problems noted. Son No problems noted. Son No problems noted. Daughter No problems noted. Social History Household Members: None Household Members Other:: alone Housing: House Alcohol intake: never Patient Tobacco Use Status: Never used Tobacco e-Cigarette/Vaping Use: Never Used Second Hand Smoke Exposure: No service: No Current occupational status: disabled Current occupational exposures/hazards: No Cognitive needs: No Hearing needs: No Vision needs: No Questionnaire Thrive Questionnaire Date Thrive assessed: 04/10/22 YUMIKO-7 AMB Questionnaire YUMIKO-7 Date YUMIKO - 7 assessed: 04/08/23 Source: Developed by Drs. Brian Abreu, Daina Ahmadi, Ralph Redmond and colleagues, with an educational brian from [employer]. Review of Systems Const Denies chills, Denies fatigue, Denies fever(s), Denies headache(s) and Denies weakness ENT Denies dizziness and Denies headache(s) Card Denies dyspnea Resp Denies cough, Denies dyspnea, Denies wheezing and Denies other (shortness of breath) Musc Denies numbness and Denies tingling Neuro Denies dizziness, Denies headache(s), Denies numbness, Denies tingling and Denies weakness Psych Denies anxiety and Denies depression Endo Denies fatigue Aller/Immun Denies wheezing Physical exam (Primary Care) Vital Signs: Last Vital Signs Temp 98.9 F 06/30/23 15:48 Pulse 75 06/30/23 15:48 BP 130/70 06/30/23 15:48 Pulse Ox 96 06/30/23 15:48 BMI result Body Mass Index 30.6 Tobacco/Smoking Status: Tobacco use Status Tobacco use date assessed 06/30/23 06/30/23 15:57 Patient Tobacco Use Status Never used Tobacco 06/30/23 15:57 e-Cigarette/Vaping Use Never Used 06/30/23 15:57 Thrive Assessment: Date of Thrive Assessment Date Thrive assessed 04/10/22 06/30/23 15:57 Const General: well developed; No acute distress Nutritional Appearance: well nourished Orientation/consciousness: patient oriented x3 HENMT Head: Yes normocephalic and Yes atraumatic Eyes General: appearance normal, both eyes and all related structures Pupils: Equal, round and reactive pupils present EOM: EOMs intact bilaterally Resp Other: Coarse breath sounds Effort & Inspection: normal respiratory effort Auscultation: clear to auscultation bilaterally Cardio Rate: regular rate Rhythm: regular rhythm Heart sounds: S1 normal heart sound present, S2 normal heart sound present, no gallops, no murmurs and no rubs Neuro General: patient oriented x3 and gait normal Cranial nerves: Yes Equal, round and reactive pupils present Psych Affect: normal affect Assessment and Plan Assessment & Plan (1) Viral illness: Code(s): B34.9 - Viral infection, unspecified Plan: Viral?illness. No?evidence?of?consolidation/pneumonia?by?auscultation. There?is?no?antibiotic?medication?for?viruses.??They?must?run?their?course.??Mos t?average?5-7?days?but?7-10?days?is?not?uncommon?and?up?to?14?days?is?still?poss ible.??A ?cough?is?often?the?last?symptom?to?resolve?and?this?can?last?for?weeks?in?some? cases. Rest Hydrate?well?-??Drink?plenty?of?fluids.??Especially?water. Tylenol?or?ibuprofen?for?muscle?aches,?headache,?fever/discomfort Can?use?qpio-jny-qjvnoik?medications?for?cough?such?as?Delsym?or?DayQuil.??Presc ription?cough?medicines?have?been?shown?to?be?no?better. Sending?a?script?for?Tamiflu?and?she?will?sta rt?this?today?as?she?is?already?4?days?since?symptoms?began. Sending?nasal?swab?to?check?COVID/flu/RSV.??She?will?stop?Tamiflu?unless?positiv e?for?influenza. High?likelihood?of?influenza?as?her?grand daughter?is?sick?contact?with?influenza. Orders: Orders SARS-CoV2/FLU/RSV Today B34.9 - Viral infection, unspecified, Z20.822 - Contact with and (suspected) exposure to COVID-19 Coding Level of Care Code Est Pt Level 3 (16424) Diagnoses Viral illness B34.9
[2023-06-30 15:48] VITALS: BP 130/70; PULSE 75; TEMP 37.2; O2SAT 96; BMI 30.6
== END 2023-06-30 17:21 | disposition home or self-care (01) ==
PROVIDERS: PCP Family Medicine; Visit Provider Family Medicine
DX: B34.9 Viral infection, unspecified (principal)
CPT/HCPCS: 99213

== ENCOUNTER 2023-06-30 16:37 | Outpatient (REF) | payer OTHER, SELFPAY ==
[2023-07-01 14:42] LABS: Influenza A PCR POSITIVE (Negative); Influenza B PCR NEGATIVE (Negative); Resp Syncy Virus RNA Qual PCR NEGATIVE (Negative); SARS COV2 PCR INHOUSE NEGATIVE (Negative)
== END 2023-06-30 16:38 | disposition home or self-care (01) ==
LOC: HO.LAB 16:37
PROVIDERS: Visit Provider Family Medicine
DX: B34.9 Viral infection, unspecified (principal); Z20.822 Contact with and (suspected) exposure to COVID-19
CPT/HCPCS: 0241U

== ENCOUNTER 2023-07-14 07:11 | Outpatient (REF) | payer OTHER, SELFPAY ==
[2023-07-14 08:01] LABS: Blood Urea Nitrogen 17 mg/dL (9-16); Estimated Glomerular Filt Rate > 60
== END 2023-07-14 07:12 | disposition home or self-care (01) ==
LOC: HO.LAB 07:11
PROVIDERS: Absent Provider Nurse Practitioner Family; PCP Family Medicine; Visit Provider Family Medicine
DX: N13.4 Hydroureter (principal)
CPT/HCPCS: 36415; 82565; 84520

== ENCOUNTER 2023-07-15 11:31 | Outpatient (AMB) | payer OTHER, SELFPAY ==
[2023-07-15 11:40] VITALS: BP 128/78; PULSE 82; O2SAT 98; BMI 30.8
--- NOTE | 2023-07-15 11:40 | MHC.PC.OV ---
Vital Signs 07/15/23 11:40 Height 5 ft 2 in Weight 168 lb 8 oz BMI 30.8 BP 128/78 Blood Pressure Location Lt brachial Position Sitting Pulse 82 Pulse Source Pulse Oximeter Pulse Oximetry (%) 98 Oxygen Delivery Method Room Air Intake Visit Reasons: f/u hypertension and chronic conditions Intake Note: Patient is here to follow up on hypertension and chronic conditions. Allergies nabumetone [From Relafen] Allergy (Intermediate, Verified 07/15/23 11:43) ITCHING shellfish derived Allergy (Intermediate, Verified 07/15/23 11:43) Swelling tramadol [Tramadol] Allergy (Mild, Verified 07/15/23 11:43) ITCHING bee sting Adverse Reaction (Mild, Uncoded 07/15/23 11:43) Redness of Skin Tobacco use date assessed: 06/30/23 Dental Screening Dental Screen Date: 07/15/23 Did you have a dental visit in the last 12 months?: Yes Did you have a dental problem in the last 6 months where you did not have access to dental care?: No Was dental information given to patient?: Patient has dentist HPI f/u hypertension and chronic conditions HPI Details 62 y/o female presents today to f/u hypertension and chronic conditions. Blood pressure today 128/78. She is on metoprolol 25mg. Pt recently had a viral illness and she reports ongoing headaches. She continues trying to hydrate herself and getting plenty of rest. She notes an ongoing cough. HPI Comments History of Present Illness Details Documentation assistance for Jakob Orellana MD, was provided by Hong Resendiz, [employer] Operator on 07/15/2023 12:34 PM [facility]. I, Dr. Orellana, have read, observed, and verified documentation. [facility] Medical History Bronchitis Pulmonary nodules Hydroureter Acid reflux Elevated fasting blood sugar Degenerative disc disease Arthritis Thyroid disease Irritable bowel syndrome (IBS) GERD (gastroesophageal reflux disease) Depression Lab test negative for COVID-19 virus History of cardiac murmur History of palpitations Surgical History History of back surgery Hx of cholecystectomy H/O excision of ganglion cyst History of esophagogastroduodenoscopy (EGD) Hx of tubal ligation H/O colonoscopy Family History Father Asthma Mother Arthritis Medical history non-contributory Brother Colon cancer Brother No problems noted. Brother No problems noted. Sister No problems noted. Sister No problems noted. Sister No problems noted. Son No problems noted. Son No problems noted. Daughter No problems noted. Social History Household Members: None Household Members Other:: alone Housing: House Alcohol intake: never Patient Tobacco Use Status: Never used Tobacco e-Cigarette/Vaping Use: Never Used Second Hand Smoke Exposure: No service: No Current occupational status: disabled Current occupational exposures/hazards: No Cognitive needs: No Hearing needs: No Vision needs: No Questionnaire Thrive Questionnaire Date Thrive assessed: 04/10/22 YUMIKO-7 AMB Questionnaire YUMIKO-7 Date YUMIKO - 7 assessed: 04/08/23 Source: Developed by Drs. Brian Abreu, Daina Ahmadi, Ralph Redmond and colleagues, with an educational brian from [employer] Review of Systems Const Denies fatigue and Reports headache(s) ENT Reports headache(s) Card Denies chest pain, Denies lightheadedness, Denies dyspnea and Denies other (Palpitations) Resp Reports cough, Denies dyspnea and Denies wheezing Musc Denies numbness and Denies tingling Neuro Reports headache(s), Denies numbness and Denies tingling Psych Denies anxiety and Denies depression Endo Denies fatigue Aller/Immun Denies wheezing Physical exam (Primary Care) Vital Signs: Last Vital Signs Pulse 82 07/15/23 11:40 BP 128/78 07/15/23 11:40 Pulse Ox 98 07/15/23 11:40 Oxygen Delivery Method Room Air 07/15/23 11:40 BMI result Body Mass Index 30.8 Tobacco/Smoking Status: Tobacco use Status Tobacco use date assessed 06/30/23 07/15/23 11:47 Patient Tobacco Use Status Never used Tobacco 07/15/23 11:47 e-Cigarette/Vaping Use Never Used 07/15/23 11:47 Thrive Assessment: Date of Thrive Assessment Date Thrive assessed 04/10/22 07/15/23 11:47 Const General: no acute distress and well developed Nutritional Appearance: well nourished Orientation/consciousness: patient oriented x3 HENMT Head: Yes normocephalic and Yes atraumatic Eyes General: appearance normal, both eyes and all related structures Pupils: Equal, round and reactive pupils present EOM: EOMs intact bilaterally Resp Other: Coarse breath sounds Effort & Inspection: normal respiratory effort Auscultation: clear to auscultation bilaterally Cardio Rate: regular rate Rhythm: regular rhythm Heart sounds: S1 normal heart sound present, S2 normal heart sound present, no gallops, no murmurs and no rubs Neuro General: patient oriented x3 and gait normal Cranial nerves: Yes Equal, round and reactive pupils present Psych Affect: normal affect Assessment and Plan Assessment & Plan (1) Hypertension: Code(s): I10 - Essential (primary) hypertension Qualifiers: Hypertension type: primary hypertension Qualified Code(s): I10 - Essential (primary) hypertension Plan: Blood?pressure?is?controlled.??Goal?is?less?than?140/90 Continue?current?medication (2) Cough: Code(s): R05.9 - Cough, unspecified Plan: Recent?influenza?infection. Lungs?are?clear?with?mild?coarse?quality?likely?secondary?to?recent?viral?illness. Encouraged?rest?and?fluids Should?continue?to?improve Plan Patient?was?also?concern?regarding?history?of?anemia.??Last?check?in?December?showed?H&H?in?normal?range. Will?recheck?with?next?blood?draw Orders: Orders Complete Blood Count Auto Diff Today Z00.00 - Encounter for general adult medical examination without abnormal findings Basic Metabolic Panel Today I10 - Essential (primary) hypertension, Z00.00 - Encounter for general adult medical examination without abnormal findings Coding Level of Care Code Est Pt Level 3 (07877) Diagnoses Primary hypertension I10 Hypertension type: primary hypertension Cough R05.9
== END 2023-07-15 12:40 | disposition home or self-care (01) ==
PROVIDERS: PCP Family Medicine; Visit Provider Family Medicine
DX: I10 Essential (primary) hypertension (principal); R05.9 Cough, unspecified
CPT/HCPCS: 99213

== ENCOUNTER 2023-09-04 13:25 | Outpatient (AMB) | payer OTHER, SELFPAY ==
[2023-09-04 13:39] VITALS: BP 128/60; PULSE 67; BMI 30.8
--- NOTE | 2023-09-04 13:39 | MHC.OFFVIS ---
Vital Signs 09/04/23 13:39 Height 5 ft 2 in Weight 168 lb 6.931 oz BMI 30.8 BP 128/60 Blood Pressure Location Lt brachial Position Sitting Pulse 67 Pulse Source Pulse Oximeter Intake Visit Reasons: 6 mth f/up Bedspread Cutter Required: No Allergies nabumetone [From Relafen] Allergy (Intermediate, Verified 09/04/23 13:43) ITCHING shellfish derived Allergy (Intermediate, Verified 09/04/23 13:43) Swelling tramadol [Tramadol] Allergy (Mild, Verified 09/04/23 13:43) ITCHING bee sting Adverse Reaction (Mild, Uncoded 09/04/23 13:43) Redness of Skin Medication List - Last Reconciled 09/04/23 by SHIRA Mejia budesonide-formoterol 160-4.5 mcg/actuation (Symbicort) 2 puffs inhalation BID 30 days buspirone 10 mg PO BID cholecalciferol (vitamin D3) (Vitamin D3) 25 mcg PO DAILY 30 days fexofenadine 180 mg PO DAILY fluticasone propionate 50 mcg/actuation (Allergy Relief (fluticasone)) 2 sprays intranasal DAILY 1 month ibuprofen 400 mg PO Q8H PRN 30 days [ISDIN lampdapil PO] levothyroxine 150 mcg PO DAILY 30 days lorazepam 1 mg PO DAILY PRN magnesium citrate 800 mg PO BID mecobalamin (vitamin B12) 1,000 mcg sublingual DAILY metoprolol succinate ER 25 mg PO BID naloxone 4 mg/actuation (Narcan) 4 mg intranasal Q2M PRN oxycodone 10 mg PO Q12H PRN 30 days pantoprazole 20 mg PO QAM paroxetine HCl 10 mg PO BEDTIME PRN polyethylene glycol 3350 (Purelax) 17 grams PO DAILY hrllpuih-xoxw-moxfr-oreg-capry 100 mg-150 mg- 50 mg-150 mg caps PO zolpidem 10 mg PO BEDTIME PRN HPI HPI 6 mth f/up: Details: Margarette is a 62-year-old female with past medical history of hypertension, aortic stenosis, prior reports of chest discomfort who presents for follow-up. Today she reports she has been noticing some shortness of breath with exertion. Overall she feels this is not new. She has to climb a flight of stairs at her daughter's house which she is able to tolerate well. She has had some brief palpitations, nothing more than a few seconds. No presyncope, syncope, falls. No concerning chest discomfort at rest or with activity. No PND, orthopnea or edema. Taking meds as directed. Is active throughout the day with normal ADLs. [facility] Medical History Bronchitis Pulmonary nodules Hydroureter Acid reflux Elevated fasting blood sugar Degenerative disc disease Arthritis Thyroid disease Irritable bowel syndrome (IBS) GERD (gastroesophageal reflux disease) Depression Lab test negative for COVID-19 virus History of cardiac murmur History of palpitations Surgical History History of back surgery Hx of cholecystectomy H/O excision of ganglion cyst History of esophagogastroduodenoscopy (EGD) Hx of tubal ligation H/O colonoscopy Family History Father Asthma Mother Arthritis Medical history non-contributory Brother Colon cancer Brother No problems noted. Brother No problems noted. Sister No problems noted. Sister No problems noted. Sister No problems noted. Son No problems noted. Son No problems noted. Daughter No problems noted. Social History Household Members: None Household Members Other:: alone Housing: House Alcohol intake: never Patient Tobacco Use Status: Never used Tobacco e-Cigarette/Vaping Use: Never Used Second Hand Smoke Exposure: No service: No Current occupational status: disabled Current occupational exposures/hazards: No Cognitive needs: No Hearing needs: No Vision needs: No Review of Systems Const All systems reviewed & are unremarkable except as noted in HPI and below ENT Reports dizziness Card Denies chest pain, Denies chest pain at rest, Denies chest pain with activity, Reports rapid heart rate, Denies pedal edema, Denies edema, Denies leg edema, Denies lightheadedness, Denies palpitations, Denies dyspnea, Reports dyspnea on exertion and Denies orthopnea Resp Denies cough, Denies dyspnea and Reports dyspnea on exertion GI Denies hematochezia and Denies change in stool character Musc Denies abnormal gait, Denies limited range of motion, Denies muscle cramps, Denies muscle weakness, Denies numbness, Denies radiating pain into limb, Denies stiffness and Denies tingling Neuro Denies abnormal gait, Reports dizziness, Denies numbness and Denies tingling Endo Denies palpitations Physical Exam Vital Signs: Last Vital Signs Pulse 67 09/04/23 13:39 BP 128/60 09/04/23 13:39 BMI result Body Mass Index 30.8 Const General: cooperative, healthy appearing, comfortable and no acute distress Orientation/consciousness: patient oriented x3 Neck Neck: Yes normal visual inspection Resp Effort & Inspection: normal respiratory effort Auscultation: clear to auscultation bilaterally, no crackles, no rales, no rhonchi and no wheezes Cardio Jugular venous distension: no JVD Rate: regular rate Rhythm: regular rhythm Heart sounds: S2 normal heart sound present, Murmur heart sound present (2/6 systolic, second heart sound present) and no rubs Neuro General: patient oriented x3 Extrem General: Yes normal to inspection, No no pedal edema and No calf tenderness Psych Appearance: grossly normal Mental Status: mental status grossly normal Speech and movement: Normal speech and movement present Assessment & Plan Assessment & Plan (1) Aortic stenosis: Code(s): I35.0 - Nonrheumatic aortic (valve) stenosis Category: Medical Plan: History of aortic stenosis. Last echocardiogram 04/07/2023 showed EF 69%, moderate to severe with mean gradient 27 mmHg, aortic valve area 0.79 centimeter sq, normal RV. Progression noted since prior echo. Heart murmur noted on examination today, does not sound severe as 2nd heart tone is still present. Patient does report some shortness of breath with exertion but does not believe this is a new symptom. Will update echocardiogram at 6 months for re-evaluation. Cardinal signs of severe reviewed with her including chest discomfort, shortness of breath, presyncope, syncope. Diagnosis of aortic stenosis, progression of and future treatment reviewed with her. She has not on statin. Lipids pending. [place] LDL goal less than 100. Cardiology office visit 6 months, sooner if needed. (2) Hypertension: Code(s): I10 - Essential (primary) hypertension Category: Medical Qualifiers: Hypertension type: primary hypertension Qualified Code(s): I10 - Essential (primary) hypertension Plan: Blood pressure normal range today. She continues on metoprolol. No changes made. (3) Chest pressure: Code(s): R07.89 - Other chest pain Category: Medical Plan: Prior reports of chest pressure, random. A CTA of the coronary arteries was done on 05/03/2022 showing no significant coronary artery disease. Signs and symptoms of true angina reviewed with her. Plan Time spent on chart review, documentation, interview and assessment Orders: Orders CA echo transthoracic complete 10/13/23 I35.0 - Nonrheumatic aortic (valve) stenosis Coding Level of Care Code Est Pt Level 4 (85135) Diagnoses Aortic stenosis I35.0 Primary hypertension I10 Hypertension type: primary hypertension Chest pressure R07.89 Time Spent (min) 28
== END 2023-09-04 14:19 | disposition home or self-care (01) ==
PROVIDERS: PCP Family Medicine; Visit Provider Nurse Practitioner Family
DX: I35.0 Nonrheumatic aortic (valve) stenosis (principal); I10 Essential (primary) hypertension; R07.89 Other chest pain
CPT/HCPCS: 99214

== ENCOUNTER → 2023-09-04 13:25 | Outpatient (BNVA) | payer OTHER, SELFPAY | PROVIDERS: PCP Family Medicine; Visit Provider Nurse Practitioner Family | DX: I35.0 Nonrheumatic aortic (valve) stenosis (principal); I10 Essential (primary) hypertension; R07.89 Other chest pain | CPT/HCPCS: 99212 ==

== ENCOUNTER 2023-09-08 11:57 | Outpatient (AMB) | payer OTHER, SELFPAY ==
--- NOTE | 2023-09-08 11:57 | A.OFFVIS_ITS ---
Intake Visit Reasons: 1y/US/labs Intake Note: Patient is present for follow up hydroureter labs and ultrasound Imagin06/17/23 Urology Medications: none Blood Thinner: none Machine Long Goods Helper Required: No Accompanied by: Self / Same As Patient Allergies nabumetone [From Relafen] Allergy (Intermediate, Verified 09/08/23 12:35) ITCHING shellfish derived Allergy (Intermediate, Verified 09/08/23 12:35) Swelling tramadol [Tramadol] Allergy (Mild, Verified 09/08/23 12:35) ITCHING bee sting Adverse Reaction (Mild, Uncoded 09/08/23 12:35) Redness of Skin Medication List - Last Reconciled 09/08/23 by EVENS Friedman-BETTYE budesonide-formoterol 160-4.5 mcg/actuation (Symbicort) 2 puffs inhalation BID 30 days buspirone 10 mg PO BID cholecalciferol (vitamin D3) (Vitamin D3) 25 mcg PO DAILY 30 days fexofenadine 180 mg PO DAILY fluticasone propionate 50 mcg/actuation (Allergy Relief (fluticasone)) 2 sprays intranasal DAILY 1 month ibuprofen 400 mg PO Q8H PRN 30 days [ISDIN lampdapil PO] levothyroxine 150 mcg PO DAILY 30 days lorazepam 1 mg PO DAILY PRN magnesium citrate 800 mg PO BID mecobalamin (vitamin B12) 1,000 mcg sublingual DAILY metoprolol succinate ER 25 mg PO BID naloxone 4 mg/actuation (Narcan) 4 mg intranasal Q2M PRN oxycodone 10 mg PO Q12H PRN 30 days pantoprazole 20 mg PO QAM paroxetine HCl 10 mg PO BEDTIME PRN polyethylene glycol 3350 (Purelax) 17 grams PO DAILY ltscrhrc-wrqw-wfmsh-oreg-capry 100 mg-150 mg- 50 mg-150 mg caps PO zolpidem 10 mg PO BEDTIME PRN HPI Comments Details: Margarette is a pleasant 62 year old female patient of Dr. Orellana. She has a past medical history of pulmonary nodules, GERD, degenerative disc disease, arthritis, hypothyroidism, irritable bowel syndrome, depression, aortic stenosis, and cardiac murmur. She presents to the office today for follow-up. Recent renal imaging results reviewed with the patient today. Bilateral kidneys with no calculi or hydronephrosis noted. Possible duplicating renal vessel lissett g the upper pole however difficult to confirm due to limited visualization. Redemonstration of bilateral extrarenal pelves. BUN: 06/20 11, 01/18 12, 07/19 17 Creatinine: 06/20 0.68, 01/18 0.77, 07/19 [address] suggesting right hydronephrosis that described possible left UPJ obstruction therefore Lasix renogram was ordered and noted relative function of the 2 kidneys based on a 2-3 minute and she is following up regarding this imaging today. The relative function of the two kidneys based on the 2-3 minute images are: Left 54% and right 46%. The left kidney with normal perfusion and function. Minimal hydronephrosis maybe present, but no significant outflow obstruction is present. Right kidney with normal perfusion and function. No hydronephrosis or outflow obstruction. When asked she denies any changes to her urinary habits. She denies urinary urgency, urinary frequency, incontinence, nocturia, hematuria, changes to urinary stream, flank pain, fever, and or chills. [facility] Medical History Bronchitis Pulmonary nodules Hydroureter Acid reflux Elevated fasting blood sugar Degenerative disc disease Arthritis Thyroid disease Irritable bowel syndrome (IBS) GERD (gastroesophageal reflux disease) Depression Lab test negative for COVID-19 virus History of cardiac murmur History of palpitations Surgical History History of back surgery Hx of cholecystectomy H/O excision of ganglion cyst History of esophagogastroduodenoscopy (EGD) Hx of tubal ligation H/O colonoscopy Family History Father Asthma Mother Arthritis Medical history non-contributory Brother Colon cancer Brother No problems noted. Brother No problems noted. Sister No problems noted. Sister No problems noted. Sister No problems noted. Son No problems noted. Son No problems noted. Daughter No problems noted. Social History Household Members: None Household Members Other:: alone Housing: House Alcohol intake: never Patient Tobacco Use Status: Never used Tobacco e-Cigarette/Vaping Use: Never Used Second Hand Smoke Exposure: No service: No Current occupational status: disabled Current occupational exposures/hazards: No Cognitive needs: No Hearing needs: No Vision needs: No Review of Systems Const Reports no additional complaints Eyes Reports no additional complaints ENT Reports no additional complaints Card Reports as per [facility] Resp Reports as per [facility] GI Reports as per [facility] Reports as per [facility] Musc Reports as per HPI Neuro Reports no additional complaints Psych Reports as per [facility] Endo Reports as per HPI Nomi/Lymph Reports no additional complaints Aller/Immun Reports no additional complaints Physical Exam Const General: cooperative, healthy appearing, comfortable, no acute distress, well developed, alert and awake Orientation/consciousness: patient oriented x3 Limitations: no limitations HEENT Head: Yes normal to inspection, Yes normocephalic and Yes atraumatic Ears: hearing grossly normal bilaterally Eyes General: appearance normal, both eyes and all related structures Neck Neck: Yes normal visual inspection and Yes trachea midline Chest Chest palpation & inspection: normal inspection of the chest Resp Effort & Inspection: normal respiratory effort and able to speak in complete sentences Cardio Rate: regular rate GI Inspection: Yes normal to inspection General: Yes no CVA tenderness Back/Spine/Pelvis Back: no CVA tenderness Skin General skin exam: no rashes or lesions noted Neuro General: patient oriented x3 Extrem General: Yes normal to inspection Psych Appearance: grossly normal and well kempt Mental Status: mental status grossly normal Speech and movement: Normal speech and movement present and Clear speech present Affect: normal affect Attitude: cooperative Thought process: Normal thought process present Thought content: Normal thought content present Insight: Fair insight present (Psych) Judgement: Fair judgement present (Psych) Results AMB Urinalysis, Automated UA Leukoctes 0 Carmen/uL Last Edit by [employer] on 09/08/23 12:13 UA Nitrite Negative Last Edit by [employer] on 09/08/23 12:13 UA Urobilinogen 0.2 mg/dL Last Edit by [employer] on 09/08/23 12:13 UA Protein 15 mg/dL Last Edit by [employer] on 09/08/23 12:13 UA pH 6.0 Last Edit by [employer] on 09/08/23 12:13 UA Blood 10 Blane/uL Last Edit by [employer] on 09/08/23 12:13 UA Specific [place] 1.025 Last Edit by Gala Gordon on 09/08/23 12:13 UA Ketone Negative Last Edit by Gala Gordon on 09/08/23 12:13 UA Bilirubin 0 mg/dL Last Edit by Gala Gordon on 09/08/23 12:13 UA Glucose 0 mg/dL Last Edit by Gala Arteagageoff on 09/08/23 12:13 Results Reviewed Results Reviewed: Laboratory Last Values Urine pH (Auto) 6.0 09/08/23 12:02 Specific [place] (Auto) 1.025 09/08/23 12:02 Urine Protein (Auto) 15 mg/dL 09/08/23 12:02 Glucose (UA)(Auto) 0 mg/dL 09/08/23 12:02 Urine Ketones (Auto) Negative 09/08/23 12:02 Urine Blood (Auto) 10 Blane/uL 09/08/23 12:02 Urine Nitrite (Auto) Negative 09/08/23 12:02 Urine Bilirubin (Auto) 0 mg/dL 09/08/23 12:02 Urine Urobilinogen (Auto) 0.2 mg/dL 09/08/23 12:02 Leukocyte Esterase (Auto) 0 Carmen/uL 09/08/23 12:02 Date of Service: 06/17/23 EXAMINATION: US RETROPERITONEAL LIMITED (RENAL ONLY)nd 04/15/2019. FINDINGS: RIGHT KIDNEY: 10.3 x 3.6 x 4.1 cm (SAG x AP x TRV). Redemonstration of extrarenal pelvis. Possible duplicated renal vessels along the upper pole difficult to confirm due to limited visualization. No renal calculi. Renal cortical thickness is normal. LEFT KIDNEY: 10.3 x 5.8 x 4.9 cm (SAG x AP x TRV). Redemonstration of extrarenal pelvis. No renal calculi. Renal cortical thickness is normal. IMPRESSION: Redemonstration of bilateral extrarenal pelves. No renal calculi. Assessment & Plan Assessment & Plan (1) Hydronephrosis: Code(s): N13.30 - Unspecified hydronephrosis Category: Medical Plan In office urinalysis results reviewed with the patient today; as noted above. Recent renal imaging results reviewed with the patient today; as noted above. Recent BUN and creatinine results reviewed and trended as noted above. Discussed, educated, and stressed the importance of drinking water daily. Patient currently denies any bothersome urinary issues or concerns. She is happy with her current voiding parameters. Information provided regarding pelvic floor exercises. Will obtain renal ultrasound in 1 year as well as BUN and creatinine for surveillance monitoring. Follow-up in 1 year with imaging and labs to be completed prior; or sooner with any issues, concerns, and or questions. Orders: Orders Blood Urea Nitrogen 1 Year N13.4 - Hydroureter Creatinine 1 Year N13.4 - Hydroureter US renal BI 1 Year N13.4 - Hydroureter AMB Urinalysis Automated Today Z13.9 - Encounter for screening, unspecified Patient Instructions: The patient had an opportunity to ask questions regarding the treatment plan. All questions were answered. Physical exam, labs, and imaging were discussed and reviewed in detail. As well as risks, benefits, and discussion of treatment choices. No major barriers to understanding were identified. The patient expressed understanding and agreement with the above treatment plan. The patient was made aware they should contact our office by phone for worsening of their current condition, the appearance of new symptoms, or with any questions or concerns. Compliance is encouraged with any medications and follow up testing that is ordered. It is a privilege to be allowed the opportunity to participate in? your urological care.? Again, if you have any questions or conc erns If you have any questions or concerns please do not hesitate to contact me. The office is [phone]. This note is constructed using voice recognition software. While every effort has been made to ensure accuracy men's golf coach errors may have been included. Yours sincerely, LENIN Friedman Coding Level of Care Code Est Pt Level 4 (93901) Diagnoses Hydronephrosis N13.30 Time Spent (min) 25
== END 2023-09-08 12:29 | disposition home or self-care (01) ==
PROVIDERS: PCP Family Medicine; Visit Provider Nurse Practitioner Family
DX: N13.30 Unspecified hydronephrosis (principal); Z13.9 Encounter for screening, unspecified
CPT/HCPCS: 99214

== ENCOUNTER → 2023-09-08 11:57 | Outpatient (BNVA) | payer OTHER, SELFPAY | PROVIDERS: PCP Family Medicine; Visit Provider Nurse Practitioner Family | DX: N13.30 Unspecified hydronephrosis (principal) | CPT/HCPCS: 81003; 99212 ==

== ENCOUNTER 2023-09-10 11:01 | Outpatient (REF) | payer OTHER, SELFPAY ==
--- NOTE | ~2023-09-10 | CT_ITS ---
EXAMINATION: CT CHEST WITHOUT CONTRAST CLINICAL INFORMATION: Pulmonary nodules. COMPARISON: CT scan of the chest dated 07/23/2022 and 07/09/2017. TECHNIQUE: Multidetector volumetric CT imaging of the chest was obtained noncontrast. Sagittal and coronal reformations were obtained. This CT examination was performed using dose optimization techniques as appropriate, variously including the following: *Automated exposure control *Adjustment of mA and/or kV according to patient size (this includes techniques or standardized protocols for targeted exams where dose is matched to indication/reason for exam; i.e. extremities or head) *Use of iterative reconstruction technique DLP: 179 mGy-cm. FINDINGS: LUNGS: Biapical pleural-based irregular reticular nodular opacities are seen, consistent with scarring, similar to the study from 2022 and slightly progressive compared to 2018. Scattered calcified granulomas are again noted bilaterally. In addition, the following nodules/nodular densities are seen as depicted on series 5: -Peripheral pleural-based 4 mm reticulonodular opacity in the left upper lobe (image 181), unchanged dating back to 2018, consistent with a benign finding. -Fissural based nodules measuring less than or equal to 5 mm, consistent with benign lymph nodes, unchanged dating back to 2018 and including nodules based on the right minor fissure (image 263) and left major fissure (image 307). -Right middle lobe 4 mm nodule, image 315. There is a focal groundglass opacity nodular area seen in the right upper lobe (series 5, image 180 through 193), new when compared to the prior studies, most consistent with a focus of inflammatory change. Lungs otherwise unremarkable. Central airways patent. No pleural effusion. LYMPHOVASCULAR STRUCTURES: Aortic and heart size normal. No pericardial effusion. No mediastinal, hilar or axillary adenopathy. CORONARY ARTERY CALCIFICATION: None visualized on this study. THYROID GLAND: Unremarkable to the extent included. UPPER ABDOMEN: Cholecystectomy melonie are seen in the right upper quadrant. Included portions of the solid organs in the upper abdomen within normal limits. BONES: S-shaped thoracolumbar scoliosis with multilevel vertebral spondylosis. Osteopenia. CT scan of the chest dated 07/23/2022 and 07/09/2017 CT/CT chest wo IV con IMPRESSION: * No significant interval change in the scattered bilateral calcified and noncalcified pulmonary nodules dating back to 2018, consistent with benign findings. * New focal groundglass opacity nodular opacity in the right upper lobe, most consistent with a focus of inflammatory change. * No adenopathy. * Status post cholecystectomy. * Osteopenia with multilevel vertebral spondylosis and S-shaped thoracolumbar scoliosis.
== END 2023-09-10 11:02 | disposition home or self-care (01) ==
LOC: HO.CT 11:01
PROVIDERS: PCP Family Medicine; Visit Provider Hospitalist
DX: R91.8 Other nonspecific abnormal finding of lung field (principal)
CPT/HCPCS: 71250

== ENCOUNTER 2023-09-12 12:50 | Outpatient (AMB) | payer OTHER, SELFPAY ==
--- NOTE | 2023-09-12 13:00 | MHC.OFFVIS ---
Vital Signs 09/12/23 13:03 Height 5 ft 2 in Weight 167 lb BMI 30.5 Pulse 77 Pulse Source Pulse Oximeter Pulse Oximetry (%) 98 Oxygen Delivery Method Room Air Intake Visit Reasons: solitary pulm nodule Alligator Shear Operator Required: No Allergies nabumetone [From Relafen] Allergy (Intermediate, Verified 09/12/23 13:04) ITCHING shellfish derived Allergy (Intermediate, Verified 09/12/23 13:04) Swelling tramadol [Tramadol] Allergy (Mild, Verified 09/12/23 13:04) ITCHING bee sting Adverse Reaction (Mild, Uncoded 09/12/23 13:04) Redness of Skin HPI Comments Details: The patient is a 62 year woman who was referred to Pulmonary for evaluation of an abnormal cardiac CT scan with numerous pulmonary nodules. apparently patient was in her usual state health until back in November 2021 which she developed COVID. After COVID she did develop worsening cough which is congested in nature with green phlegm. She had been evaluated by primary care and was given supportive care. Subsequently her symptoms worsen and she ended up getting a chest x-ray demonstrating evidence of bronchitis. She was given a course of antibiotics and prednisone. She has been feeling better since then. Still, still coughing up phlegm in the morning. In the meantime she has been evaluated for cardiac disease. She was referred to [facility] which she underwent a CT scan of the coronary arteries. This is a very limited view of the lungs. Although, I personally reviewed it and the patient had multiple pulmonary nodules largest 1 measuring 5 mm on the major fissure on the left. However, this is a very limited amount of lung parenchymal evaluation. And therefore the best way to further assess her pulmonary nodules would be to get a formal CT scan of the chest. We did talk about treating her bronchitis. However, she would like to hold off until she has her cardiac evaluation prior to starting any pulmonary medications. In the meantime I did recommend she can sheepskin pickler some Mucinex to try to help with the expectorate the phlegm in her lungs. If her respiratory symptoms worsen and if she gets the okay from cardiology she can always call the office and we can send her additional medicines. 09/13/2022 the patient is here for pulmonary follow-up visit. The patient has been doing well. She has been using the Symbicort inhaler. However, causing her increased coughing irritation or throat and also difficulty sleeping. Therefore she cut it down to once a day. Still though still having some issues with that. Her breathing is overall better. She is able to clear her lungs fairly well with the inhaler. Denies any significant chest congestion. She still has episodic sensations like she needs to take a deep breath in but usually transient. We did review her last CT scan of the chest that she had in July 2022 demonstrating both noncalcified and calcified pulmonary nodules. All subcentimeter in size. The patient also has some evidence of apical scarring which is minimal and evidence of bronchitis. It was noted that her aortic valve is calcified. Indeed she does have moderate aortic stenosis based on echocardiogram. Ultimately patient is doing well. There is family history of lung cancer in the family so therefore the nodules concern her. Will plan to follow-up in 1 more year to make sure there is no progression of the nodules. If they continue to be stable after couple years we can just follow him as needed. 09/12/2023 the patient is here for a pulmonary follow-up visit. She has been recovering after having the flu. There was about 6-8 weeks ago. The patient recovered but then started developing a productive cough with yellowish-green phlegm. Vvpv-kr-gdwgwogt severity. She did use Mucinex at times with some relief. Then she stopped. Does have some increased shortness of breath as well. But otherwise better from the significant flu-like symptoms. She did have a CT scan of the chest which I personally reviewed with her. Appears that her pulmonary nodules have been stable. Although now she has areas of ground-glass opacity in the right upper lobe area. This most likely related to her recent infectious process. Will go ahead and treat her for a postviral bacterial infection. Specially with Staph aureus. Will go most likely require to repeat the CT scan in 4-6 months. In the meantime she has been having severe headaches. She also has episodes of waking up short of breath. She does have snoring. The patient has not had sleep study. At this point her Boswell score is elevated 02/18. Will request a sleep study at this time. [facility] Medical History (Updated 09/14/23 @ 22:59 by Jesus Okeefe MD) Headache SERGIO (obstructive sleep apnea) Bronchitis Pulmonary nodules Hydroureter Acid reflux Elevated fasting blood sugar Degenerative disc disease Arthritis Thyroid disease Irritable bowel syndrome (IBS) GERD (gastroesophageal reflux disease) Depression Lab test negative for COVID-19 virus History of cardiac murmur History of palpitations Surgical History History of back surgery Hx of cholecystectomy H/O excision of ganglion cyst History of esophagogastroduodenoscopy (EGD) Hx of tubal ligation H/O colonoscopy Family History Father Asthma Mother Arthritis Medical history non-contributory Brother Colon cancer Brother No problems noted. Brother No problems noted. Sister No problems noted. Sister No problems noted. Sister No problems noted. Son No problems noted. Son No problems noted. Daughter No problems noted. Social History Household Members: None Household Members Other:: alone Housing: House Alcohol intake: never Patient Tobacco Use Status: Never used Tobacco e-Cigarette/Vaping Use: Never Used Second Hand Smoke Exposure: No service: No Current occupational status: disabled Current occupational exposures/hazards: No Cognitive needs: No Hearing needs: No Vision needs: No Review of Systems Const Denies chills, Denies fatigue, Denies fever(s), Denies headache(s) and Denies weakness ENT Denies dizziness and Denies headache(s) Card Denies chest pain, Denies lightheadedness, Denies dyspnea and Denies other (Palpitations) Resp Reports chest congestion, Reports cough, Denies dyspnea, Denies wheezing and Denies other ( shortness of breath) Musc Denies numbness and Denies tingling Neuro Denies dizziness, Denies headache(s), Denies numbness, Denies tingling, Denies paresthesias and Denies weakness Psych Denies anxiety and Denies depression Endo Denies fatigue Aller/Immun Denies wheezing Physical Exam Vital Signs: Last Vital Signs Pulse 77 09/12/23 13:03 Pulse Ox 98 09/12/23 13:03 Oxygen Delivery Method Room Air 09/12/23 13:03 BMI result Body Mass Index 30.5 Const General: cooperative and comfortable Orientation/consciousness: patient oriented x3 HEENT Head: Yes normal to inspection, Yes normocephalic and Yes atraumatic Ears: hearing grossly normal bilaterally Eyes General: appearance normal, both eyes and all related structures Neck Neck: Yes normal visual inspection and Yes trachea midline Chest Chest palpation & inspection: normal inspection of the chest Resp Effort & Inspection: normal respiratory effort and able to speak in complete sentences Auscultation: clear to auscultation bilaterally Cardio Rate: regular rate Rhythm: regular rhythm Heart sounds: S1 normal heart sound present and S2 normal heart sound present GI Palpation (GI): Soft to palpation Skin General skin exam: no rashes or lesions noted Neuro General: patient oriented x3 Extrem General: Yes no clubbing, cyanosis or edema Psych Appearance: grossly normal and well kempt Mental Status: mental status grossly normal Speech and movement: Normal speech and movement present and Clear speech present Affect: normal affect Attitude: cooperative Thought process: Normal thought process present Thought content: Normal thought content present Insight: Good insight present (Psych) Judgement: Good judgement present (Psych) Assessment & Plan Assessment & Plan (1) SERGIO (obstructive sleep apnea): Code(s): G47.33 - Obstructive sleep apnea (adult) (pediatric) Category: Medical (2) Headache: Code(s): R51.9 - Headache, unspecified Category: Medical Qualifiers: Headache type: unspecified Headache chronicity pattern: chronic headache Intractability: not intractable Qualified Code(s): R51.9 - Headache, unspecified; G89.29 - Other chronic pain (3) Pulmonary nodules: Code(s): R91.8 - Other nonspecific abnormal finding of lung field Category: Medical (4) Pneumonitis: Code(s): J98.4 - Other disorders of lung Category: Medical Plan home sleep study start Doxycycline Bloodwork Awaiting CT chest final report, will likely need a repeat CT chest 4-6 months based on a new GG nodular densities conitnue symbicort F/U 3 months Orders: Orders RT home sleep study 09/12/23 G47.33 - Obstructive sleep apnea (adult) (pediatric) Liver Panel 09/12/23 R51.9 - Headache, unspecified Complete Blood Count Auto Diff 09/12/23 R51.9 - Headache, unspecified Erythrocyte Sedimentation Rate 09/12/23 R51.9 - Headache, unspecified Basic Metabolic Panel 09/12/23 R51.9 - Headache, unspecified Vitamin B12 and Folate 05/17/24 R51.9 - Headache, unspecified Angiotensin Converting Enzyme 09/12/23 R91.8 - Other nonspecific abnormal finding of lung field MANA Reflex Titer and Pattern 09/12/23 R91.8 - Other nonspecific abnormal finding of lung field Sjogren's Antibodies 09/12/23 R91.8 - Other nonspecific abnormal finding of lung field Medications: New doxycycline hyclate 100 mg PO BID 10 days 20 caps 0RF Coding Level of Care Code Est Pt Level 4 (23399) Diagnoses SERGIO (obstructive sleep apnea) G47.33 Chronic nonintractable headache, unspecified headache type R51.9; G89.29 Headache type: unspecified Headache chronicity pattern: chronic headache Intractability: not intractable Pulmonary nodules R91.8 Pneumonitis J98.4 Time Spent (min) 18
[2023-09-12 13:03] VITALS: PULSE 77; O2SAT 98; BMI 30.5
== END 2023-09-12 13:33 | disposition home or self-care (01) ==
PROVIDERS: PCP Family Medicine; Visit Provider Hospitalist
DX: G47.33 Obstructive sleep apnea (adult) (pediatric) (principal); R51.9 Headache, unspecified; G89.29 Other chronic pain; R91.8 Other nonspecific abnormal finding of lung field; J98.4 Other disorders of lung
CPT/HCPCS: 99214

== ENCOUNTER → 2023-09-12 12:50 | Outpatient (BNVA) | payer OTHER, SELFPAY | PROVIDERS: PCP Family Medicine; Visit Provider Hospitalist | DX: R91.8 Other nonspecific abnormal finding of lung field (principal); J98.4 Other disorders of lung; G47.33 Obstructive sleep apnea (adult) (pediatric); R51.9 Headache, unspecified; G89.29 Other chronic pain | CPT/HCPCS: 99212 ==

== ENCOUNTER 2023-10-06 07:05 | Outpatient (REF) | payer OTHER, SELFPAY ==
[2023-10-06 07:25] LABS: MANUAL DIFF FLAG NO
[2023-10-06 07:51] LABS: Basophils Absolute Auto 0.1 X10*3/uL (0.0-0.2); Basophils Percent Auto 1.1 % (0-2); Eosinophils Absolute Auto 0.4 X10*3/uL (0.0-0.4); Eosinophils Percent Auto 6.5 % (0-4); Hematocrit 37.6 % (37.0-47.0); Hemoglobin 12.4 g/dl (12.0-16.0); Imm Gran Abs Auto 0.01 X10*3/uL (0.00-0.03); Imm Gran Pct Auto 0.2 % (0.0-0.4); Lymphocytes Absolute Auto 3.5 X10*3/uL (1.2-4.9); Lymphocytes Percent Auto 53.6 % (20-40); Mean Corpuscular Hemoglobin 30.5 pg (27.0-33.0); Mean Corpuscular Volume 92.4 fL (80.0-98.0); Mean Platelet Volume 9.3 fL (9.4-12.3); Monocytes Absolute Auto 0.4 X10*3/uL (0.1-1.2); Monocytes Percent Auto 5.7 % (2-11); Neutrophils Absolute Auto 2.1 x10*3/uL (2.0-8.3); Neutrophils Percent Auto 32.9 % (45-73); Platelet Count 195 X10*3/uL (160-400); Red Blood Count 4.07 X10*6/uL (4.20-5.50); Red Cell Distribution Width 12.6 % (11.0-16.0); White Blood Count 6.4 X10*3/uL (4.8-10.8)
[2023-10-06 08:24] LABS: Alanine Aminotransferase 11 U/L (0-31); Alkaline Phosphatase 60 U/L (39-117); Anion Gap 14 (12-20); Aspartate Amino Transferase 19 U/L (5-31); Bilirubin Direct 0.1 mg/dL (0.0-0.5); Bilirubin Total 0.3 mg/dL (0.0-1.0); Blood Urea Nitrogen 15 mg/dL (9-16); Calcium 9.5 mg/dL (8.4-10.2); Carbon Dioxide 28 mmol/L (22-29); Chloride 105 mmol/L (96-108); Estimated Glomerular Filt Rate > 60; Glucose Random 100 mg/dL (60-115); Potassium 4.5 mmol/L (3.3-5.1); Sodium 142 mmol/L (135-145); Total Protein 7.7 g/dL (6.5-8.0)
[2023-10-06 08:30] LABS: Erythrocyte Sedimentation Rate 15 MM/HR (0-20)
[2023-10-06 08:54] LABS: Folate 9.9 ng/mL (> or = 4.0); Vitamin B12 605 pg/mL (200-900)
[2023-10-07 20:08] LABS: Antibody to SS-A Antigen <1.0 NEG AI (<1.0 NEG); Antibody to SS-B Antigen <1.0 NEG AI (<1.0 NEG)
[2023-10-08 14:38] LABS: Anti Nuclear Antibody Screen NEGATIVE (NEGATIVE)
[2023-10-10 08:37] LABS: Angiotensin Converting Enzyme 29.2 U/L (9-67)
== END 2023-10-06 07:06 | disposition home or self-care (01) ==
LOC: HO.LAB 07:05
PROVIDERS: Absent Provider Hospitalist; PCP Family Medicine; Visit Provider Family Medicine
DX: R51.9 Headache, unspecified (principal); R91.8 Other nonspecific abnormal finding of lung field
CPT/HCPCS: 36415; 80048; 80076; 82164; 82607; 82746; 85025; 85652; 86038; 86235

== ENCOUNTER 2023-10-07 11:27 | Outpatient (AMB) | payer OTHER, SELFPAY ==
[2023-10-07 11:31] VITALS: BP 122/70; PULSE 70; O2SAT 98; BMI 31.0
--- NOTE | 2023-10-07 11:31 | MHC.PC.OV ---
Vital Signs 10/07/23 11:31 Height 5 ft 2 in Weight 169 lb 6 oz BMI 31.0 BP 122/70 Blood Pressure Location Lt brachial Position Sitting Pulse 70 Pulse Source Pulse Oximeter Pulse Oximetry (%) 98 Oxygen Delivery Method Room Air Intake Visit Reasons: f/u hypertension Intake Note: Patient is here for follow up on hypertneion, and has a concern of the feeling of a band around the left side of her head, eun ear, spiritism, and sinuses, and pain in both her legs. She also complains of pain in top left foot. Allergies nabumetone [From Relafen] Allergy (Intermediate, Verified 10/07/23 11:37) ITCHING shellfish derived Allergy (Intermediate, Verified 10/07/23 11:37) Swelling tramadol [Tramadol] Allergy (Mild, Verified 10/07/23 11:37) ITCHING bee sting Adverse Reaction (Mild, Uncoded 10/07/23 11:37) Redness of Skin Medication List - Last Reconciled 10/07/23 by Jakob Orellana MD budesonide-formoterol 160-4.5 mcg/actuation (Symbicort) 2 puffs inhalation BID 30 days buspirone 10 mg PO BID cholecalciferol (vitamin D3) (Vitamin D3) 25 mcg PO DAILY 30 days doxycycline hyclate 100 mg PO BID 10 days fexofenadine 180 mg PO DAILY fluticasone propionate 50 mcg/actuation (Allergy Relief (fluticasone)) 2 sprays intranasal DAILY 1 month ibuprofen 400 mg PO Q8H PRN 30 days [ISDIN lampdapil PO] levothyroxine 150 mcg PO DAILY 30 days lorazepam 1 mg PO DAILY PRN magnesium citrate 800 mg PO BID mecobalamin (vitamin B12) 1,000 mcg sublingual DAILY metoprolol succinate ER 25 mg PO BID naloxone 4 mg/actuation (Narcan) 4 mg intranasal Q2M PRN oxycodone 10 mg PO Q12H PRN 30 days pantoprazole 20 mg PO QAM paroxetine HCl 10 mg PO BEDTIME PRN polyethylene glycol 3350 (Purelax) 17 grams PO DAILY gfoubxyk-kepg-umtxt-oreg-capry 100 mg-150 mg- 50 mg-150 mg caps PO zolpidem 10 mg PO BEDTIME PRN Tobacco use date assessed: 10/07/23 Dental Screening Dental Screen Date: 10/07/23 HPI f/u hypertension HPI Details 62 y/o female presents to f/u hypertension. Blood pressure today 122/70. She is on metoprolol 25mg b.i.d. Pt has complaints of a headache. Pt has complaints of L shoulder pain. [facility] Medical History Headache SERGIO (obstructive sleep apnea) Bronchitis Pulmonary nodules Hydroureter Acid reflux Elevated fasting blood sugar Degenerative disc disease Arthritis Thyroid disease Irritable bowel syndrome (IBS) GERD (gastroesophageal reflux disease) Depression Lab test negative for COVID-19 virus History of cardiac murmur History of palpitations Surgical History History of back surgery Hx of cholecystectomy H/O excision of ganglion cyst History of esophagogastroduodenoscopy (EGD) Hx of tubal ligation H/O colonoscopy Family History Father Asthma Mother Arthritis Medical history non-contributory Brother Colon cancer Brother No problems noted. Brother No problems noted. Sister No problems noted. Sister No problems noted. Sister No problems noted. Son No problems noted. Son No problems noted. Daughter No problems noted. Social History Household Members: None Household Members Other:: alone Housing: House Alcohol intake: never Patient Tobacco Use Status: Never used Tobacco e-Cigarette/Vaping Use: Never Used Second Hand Smoke Exposure: No service: No Current occupational status: disabled Current occupational exposures/hazards: No Cognitive needs: No Hearing needs: No Vision needs: No Questionnaire Thrive Questionnaire Date Thrive assessed: 04/10/22 YUMIKO-7 AMB Questionnaire YUMIKO-7 Date YUMIKO - 7 assessed: 04/08/23 Source: Developed by Drs. Brian Abreu, Daina Ahmadi, Ralph Redmond and colleagues, with an educational brian from [employer]. Review of Systems Const Denies fatigue and Reports headache(s) ENT Reports headache(s) Card Denies dyspnea Resp Denies cough, Denies dyspnea, Denies wheezing and Denies other (shortness of breath) Musc Details: L shoulder pain Denies numbness and Denies tingling Neuro Reports headache(s), Denies numbness and Denies tingling Psych Denies anxiety and Denies depression Endo Denies fatigue Aller/Immun Denies wheezing Physical exam (Primary Care) Vital Signs: Last Vital Signs Pulse 70 10/07/23 11:31 BP 122/70 10/07/23 11:31 Pulse Ox 98 10/07/23 11:31 Oxygen Delivery Method Room Air 10/07/23 11:31 BMI result Body Mass Index 31.0 Tobacco/Smoking Status: Tobacco use Status Tobacco use date assessed 10/07/23 10/07/23 11:40 Patient Tobacco Use Status Never used Tobacco 10/07/23 11:33 e-Cigarette/Vaping Use Never Used 10/07/23 11:33 Thrive Assessment: Date of Thrive Assessment Date Thrive assessed 04/10/22 10/07/23 11:33 Const General: well developed; No acute distress Nutritional Appearance: well nourished Orientation/consciousness: patient oriented x3 HENMT Head: Yes normocephalic and Yes atraumatic Eyes General: appearance normal, both eyes and all related structures Pupils: Equal, round and reactive pupils present EOM: EOMs intact bilaterally Resp Effort & Inspection: normal respiratory effort Neuro General: patient oriented x3 and gait normal Cranial nerves: Yes Equal, round and reactive pupils present Psych Affect: normal affect Assessment and Plan Assessment & Plan (1) Hypertension: Code(s): I10 - Essential (primary) hypertension Qualifiers: Hypertension type: primary hypertension Qualified Code(s): I10 - Essential (primary) hypertension Plan: Blood?pressure?is?controlled.??Goal?is?less?than?140/90 Continue?current?medication (2) Left shoulder pain: Code(s): M25.512 - Pain in left shoulder Plan: Patient?has?left-sided?shoulder?neck?and?head?pain. Start?physical?therapy (3) Headache: Code(s): R51.9 - Headache, unspecified Qualifiers: Headache chronicity pattern: chronic headache Headache type: unspecified Intractability: not intractable Qualified Code(s): R51.9 - Headache, unspecified; G89.29 - Other chronic pain Plan: Headache?on?left?side?and?patient?has?left?cervicalgia?and?left?shoulder?pain Start?physical?therapy Can?use?Tylenol (4) Cervicalgia: Code(s): M54.2 - Cervicalgia Plan: Start?physical?therapy Orders: Orders PT Evaluation and Treatment Today G89.29 - Other chronic pain, M25.512 - Pain in left shoulder, M54.2 - Cervicalgia, R51.9 - Headache, unspecified Coding Level of Care Code Est Pt Level 4 (26886) Diagnoses Primary hypertension I10 Hypertension type: primary hypertension Left shoulder pain M25.512 Chronic nonintractable headache, unspecified headache type R51.9; G89.29 Headache chronicity pattern: chronic headache Headache type: unspecified Intractability: not intractable Cervicalgia M54.2
== END 2023-10-07 12:13 | disposition home or self-care (01) ==
PROVIDERS: PCP Family Medicine; Visit Provider Family Medicine
DX: I10 Essential (primary) hypertension (principal); M25.512 Pain in left shoulder; R51.9 Headache, unspecified; G89.29 Other chronic pain; M54.2 Cervicalgia
CPT/HCPCS: 99214

== ENCOUNTER → 2023-10-13 12:41 | Outpatient (REF) | payer OTHER, SELFPAY ==
--- NOTE | 2023-10-13 12:44 | CA_ITS ---
Transthoracic Echocardiogram Patient (Last, First, Middle): Margarette Fry, Gender: Female Date of : 1960 Age: 62 Procedure Date: 10/13/2023 Procedure Type: Transthoracic Echocardiogram Location: OP Height: 157.48 cm Weight: 76.66 kg BSA: 1.78 m2 Heart Rate: bpm BP: 122 / 70 mmHg [employer]obile [employer] Repair Supervisor: MELANY Referring MD: Eli Gao APPLICATION SUPPORT LEAD-Macie Symptoms: I35.0 - Nonrheumatic aortic (valve) stenosis Study Quality: Fair ECG Rhythm: Sinus Conclusions: - The left ventricular systolic function is normal. The visually estimated ejection fraction is between 60-65%. - There is moderate to severe aortic valve stenosis. Findings Left Ventricle Normal left ventricular cavity size. There is mildly increased left ventricular wall thickness. The left ventricular systolic function is normal. The visually estimated ejection fraction is between 60-65%. There is no evidence of regional wall motion abnormalities. Diastolic function is normal for age. Right Ventricle Normal right ventricular cavity size and systolic function. Atria Both atria are normal in size. Aortic Valve There is severe calcification of the aortic valve. There is moderate to severe aortic valve stenosis. The peak aortic velocity is 3.39 m/s with a calculated peak gradient of 46 mmHg. The mean gradient is 25 mmHg. The aortic valve area is 0.90 cm2. There is no aortic valve regurgitation. Cannot exclude bicuspid aortic valve. Dimensionless index 0.28. Mitral Valve The mitral valve appears normal. There is mild mitral valve regurgitation. There is no mitral valve stenosis. Pulmonic Valve The pulmonic valve is likely normal. Tricuspid Valve There is trace tricuspid valve regurgitation. There is no evidence of pulmonary hypertension. Great Vessels The asc aorta is normal in size. Small plaque is seen in the sinuses of Valsalva. Venous The inferior vena cava is normal in size and collapses greater than 50% with inspiration. Pericardium/Pleural There is no evidence of pericardial effusion. Prior Study Comparison No significant change compared to prior study dated: 04/07/2023. Measurements 2D Linear Measurements IVSd: 1.04 0.6-0.9/0.6-1.0 cm LVIDd: 4.11 3.9-5.3/4.2-5.9 cm LVIDd Index: 2.31 2.4-3.2/2.2-3.1 cm/m2 LVIDs: 2.41 2.0-3.6 cm LVPWd: 1.06 0.7-1.1 cm Ao Root: 3.00 2.1-3.5 cm LA Diam: 3.40 2.7-3.8/3.0-4.0 cm LAIDs Index: 1.91 1.5-2.3 cm/m2 LV Mass: 176.86 67-162/88-224 g LV Mass Index: 99.36 43-95/49-115 g/m2 LVOT Diam: 2.00 3.0+(-)1.3 cm 2D Systolic Function EF 4C: 65.30 >55% EF 2C: 57.30 >55% EF BiP: 60.20 >55% Mitral Valve MV Pk E: 0.83 MV PK A: 0.86 MV Decel Time: 323.00 E/A: 1.00 E'Lateral: 9.90 E'Medial: 8.92 E/E' Med: 9.30 E/E' Lat: 8.40 PHT: 95.00 MVA PHT: 2.32 Decel [place]: 2.58 Aortic Valve AoV Pk Lion: 3.39 AoV Mn Lion: 2.32 AoV VTI: 0.89 AoV Pk Grad: 46.00 Aov Mn Grad: 25.00 GENIA Cont.VTI: 0.90 LVOT LVOT Pk Lion: 0.96 LVOT Mn Lion: 0.62 LVOT VTI: 0.25 LVOT Pk Grad: 4.00 LVOT Mn Grad: 2.00 LVOT Diam: 2.00 LVOT Area: 3.14 Diastolic Function MV Pk E: 0.83 MV Pk A: 0.86 E/A: 1.00 E'Medial: 8.92 E/E' Med: 9.30 E' Laterial: 9.90 E/E' Lat: 8.40 Right Ventricle TAPSE (mm): 19.70 TVS' Lion: 10.10 Tricuspid Valve TR Pk Lion: 2.46 TR Pk Grad: 24.00 RA Press: 3.00 RVSP: 27.00 Great Vessels Aorta Ao Root-2D: 3.00 2.0-3.7 cm Ao Asc: 3.10 2.1-3.4 cm Ao Arch: 2.70 Updated in Other Vendor System with Status of Final Mehul Chong MD electronically signed on 10/13/2023 3:57:54 PM with status of Final
== END ==
LOC: HO.CARD 12:41
PROVIDERS: Visit Provider Nurse Practitioner Family
DX: I35.0 Nonrheumatic aortic (valve) stenosis (principal)
CPT/HCPCS: 93306

== ENCOUNTER → 2023-10-13 12:44 | Outpatient (BNV) | payer OTHER, SELFPAY | PROVIDERS: Visit Provider Internal Medicine | DX: I35.0 Nonrheumatic aortic (valve) stenosis (principal); I35.8 Other nonrheumatic aortic valve disorders; I34.0 Nonrheumatic mitral (valve) insufficiency | CPT/HCPCS: 93306 ==

== ENCOUNTER → 2023-10-15 12:27 | Outpatient (REF) | payer OTHER, SELFPAY | LOC: HO.SL 12:27 | PROVIDERS: PCP Family Medicine; Visit Provider Hospitalist | DX: G47.33 Obstructive sleep apnea (adult) (pediatric) (principal) | CPT/HCPCS: 95806 ==

== ENCOUNTER → 2023-10-15 13:06 | Outpatient (BNV) | payer OTHER, SELFPAY | PROVIDERS: PCP Family Medicine; Visit Provider Internal Medicine | DX: R06.83 Snoring (principal) | CPT/HCPCS: 95806 ==

== ENCOUNTER 2023-12-16 14:15 | Outpatient (AMB) | payer OTHER, SELFPAY ==
[2023-12-16 14:18] VITALS: PULSE 66; O2SAT 99; BMI 30.2
--- NOTE | 2023-12-16 14:18 | A.OFFVIS_ITS ---
Vital Signs 12/16/23 14:18 Height 5 ft 2 in Weight 165 lb BMI 30.2 Pulse 66 Pulse Source Pulse Oximeter Pulse Oximetry (%) 99 Oxygen Delivery Method Room Air Intake Visit Reasons: SERGIO/Sleep Study Follow Up Supervisor Cell Operation Required: No Allergies nabumetone [From Relafen] Allergy (Intermediate, Verified 12/16/23 14:19) ITCHING shellfish derived Allergy (Intermediate, Verified 12/16/23 14:19) Swelling tramadol [Tramadol] Allergy (Mild, Verified 12/16/23 14:19) ITCHING bee sting Adverse Reaction (Mild, Uncoded 12/16/23 14:19) Redness of Skin HPI Comments Details: The patient is a 63 year woman who was referred to Pulmonary for evaluation of an abnormal cardiac CT scan with numerous pulmonary nodules. apparently patient was in her usual state health until back in November 2021 which she developed COVID. After COVID she did develop worsening cough which is congested in nature with green phlegm. She had been evaluated by primary care and was given supportive care. Subsequently her symptoms worsen and she ended up getting a chest x-ray demonstrating evidence of bronchitis. She was given a course of antibiotics and prednisone. She has been feeling better since then. Still, still coughing up phlegm in the morning. In the meantime she has been evaluated for cardiac disease. She was referred to [facility] which she underwent a CT scan of the coronary arteries. This is a very limited view of the lungs. Although, I personally reviewed it and the patient had multiple pulmonary nodules largest 1 measuring 5 mm on the major fissure on the left. However, this is a very limited amount of lung parenchymal evaluation. And therefore the best way to further assess her pulmonary nodules would be to get a formal CT scan of the chest. We did talk about treating her bronchitis. However, she would like to hold off until she has her cardiac evaluation prior to starting any pulmonary medications. In the meantime I did recommend she can apple picking supervisor some Mucinex to try to help with the expectorate the phlegm in her lungs. If her respiratory symptoms worsen and if she gets the okay from cardiology she can always call the office and we can send her additional medicines. 09/13/2022 the patient is here for pulmonary follow-up visit. The patient has been doing well. She has been using the Symbicort inhaler. However, causing her increased coughing irritation or throat and also difficulty sleeping. Therefore she cut it down to once a day. Still though still having some issues with that. Her breathing is overall better. She is able to clear her lungs fairly well with the inhaler. Denies any significant chest congestion. She still has episodic sensations like she needs to take a deep breath in but usually transient. We did review her last CT scan of the chest that she had in July 2022 demonstrating both noncalcified and calcified pulmonary nodules. All subcentimeter in size. The patient also has some evidence of apical scarring which is minimal and evidence of bronchitis. It was noted that her aortic valve is calcified. Indeed she does have moderate aortic stenosis based on echocardiogram. Ultimately patient is doing well. There is family history of lung cancer in the family so therefore the nodules concern her. Will plan to follow-up in 1 more year to make sure there is no progression of the nodules. If they continue to be stable after couple years we can just follow him as needed. 09/12/2023 the patient is here for a pulmonary follow-up visit. She has been recovering after having the flu. There was about 6-8 weeks ago. The patient recovered but then started developing a productive cough with yellowish-green phlegm. Lmni-ro-kzjuhyui severity. She did use Mucinex at times with some relief. Then she stopped. Does have some increased shortness of breath as well. But otherwise better from the significant flu-like symptoms. She did have a CT scan of the chest which I personally reviewed with her. Appears that her pulmonary nodules have been stable. Although now she has areas of ground- glass opacity in the right upper lobe area. This most likely related to her recent infectious process. Will go ahead and treat her for a postviral bacterial infection. Specially with Staph aureus. Will go most likely require to repeat the CT scan in 4-6 months. In the meantime she has been having severe headaches. She also has episodes of waking up short of breath. She does have snoring. The patient has not had sleep study. At this point her [place] score is elevated 10/24. Will request a sleep study at this time. 12/16/2023 the patient is here for a pulmonary follow-up visit. Overall she is doing okay from a respiratory status. She is complaining of a persistent headache. She is also having neck pain and also left shoulder discomfort. She is having hard time with certain movement. Appears to be musculoskeletal. She is currently getting physical therapy. Will go ahead and request a chest x-ray for her. She will likely need additional imaging studies possibly an MRI in view of the significant limitation says she has right now. The patient also underwent a sleep study since she has been having headaches. She also has some daytime drowsiness with an [place] score of 8/24. Her AHI is only 4. Therefore likely has a little bit of sleep apnea but only minimal. The patient primarily had apneic episodes and hypopnea episodes when she was supine. Therefore she can go ahead and lay on her right side. She can not lay on the left due to her significant shoulder discomfort however. She can try positional therapy. In addition to that appears to have a component of postnasal drip and sinusitis. Will be reasonable to use nasal sprays for these a month and see there is any improvement in the sinus congestion. She can also could try decongestant therapy. From a pulmonary standpoint the patient did have a CT scan of the chest back in 09/15/2023 demonstrating multiple pulmonary nodules interstitial changes. Will go ahead and repeat her CT scan in August or 08/15/2024. Will follow-up after that. If she has any issues prior to that she will call for an earlier assessment. [facility] Medical History Headache SERGIO (obstructive sleep apnea) Bronchitis Pulmonary nodules Hydroureter Acid reflux Elevated fasting blood sugar Degenerative disc disease Arthritis Thyroid disease Irritable bowel syndrome (IBS) GERD (gastroesophageal reflux disease) Depression Lab test negative for COVID-19 virus History of cardiac murmur History of palpitations Surgical History History of back surgery Hx of cholecystectomy H/O excision of ganglion cyst History of esophagogastroduodenoscopy (EGD) Hx of tubal ligation H/O colonoscopy Family History Father Asthma Mother Arthritis Medical history non-contributory Brother Colon cancer Brother No problems noted. Brother No problems noted. Sister No problems noted. Sister No problems noted. Sister No problems noted. Son No problems noted. Son No problems noted. Daughter No problems noted. Social History Household Members: None Household Members Other:: alone Housing: House Alcohol intake: never Patient Tobacco Use Status: Never used Tobacco e-Cigarette/Vaping Use: Never Used Second Hand Smoke Exposure: No service: No Current occupational status: disabled Current occupational exposures/hazards: No Cognitive needs: No Hearing needs: No Vision needs: No Review of Systems Const Denies chills, Denies fatigue, Denies fever(s), Reports headache(s) and Denies weakness ENT Denies dizziness, Reports headache(s) and Reports neck pain Card Denies chest pain, Denies lightheadedness, Denies dyspnea and Denies other (Palpitations) Resp Reports cough, Denies dyspnea, Denies wheezing and Denies other ( shortness of breath) Musc Reports myalgias, Reports limited range of motion, Reports neck pain and Denies tingling Neuro Denies dizziness, Reports headache(s), Denies tingling, Denies paresthesias and Denies weakness Psych Denies anxiety and Denies depression Endo Denies fatigue Aller/Immun Denies wheezing Physical Exam Vital Signs: Last Vital Signs Pulse 66 12/16/23 14:18 Pulse Ox 99 12/16/23 14:18 Oxygen Delivery Method Room Air 12/16/23 14:18 BMI result Body Mass Index 30.2 Const General: cooperative and comfortable Orientation/consciousness: patient oriented x3 HEENT Head: Yes normal to inspection, Yes normocephalic and Yes atraumatic Ears: hearing grossly normal bilaterally Eyes General: appearance normal, both eyes and all related structures Neck Neck: Yes normal visual inspection and Yes trachea midline Chest Chest palpation & inspection: normal inspection of the chest Resp Effort & Inspection: normal respiratory effort and able to speak in complete sentences Auscultation: clear to auscultation bilaterally Cardio Rate: regular rate Rhythm: regular rhythm Heart sounds: S1 normal heart sound present and S2 normal heart sound present GI Palpation (GI): Soft to palpation Skin General skin exam: no rashes or lesions noted Neuro General: patient oriented x3 Extrem General: Yes no clubbing, cyanosis or edema Psych Appearance: grossly normal and well kempt Mental Status: mental status grossly normal Speech and movement: Normal speech and movement present and Clear speech present Affect: normal affect Attitude: cooperative Thought process: Normal thought process present Thought content: Normal thought content present Insight: Good insight present (Psych) Judgement: Good judgement present (Psych) Assessment & Plan Assessment & Plan (1) Left shoulder pain: Code(s): M25.512 - Pain in left shoulder Category: Medical Qualifiers: Chronicity: unspecified Qualified Code(s): M25.512 - Pain in left shoulder (2) Headache: Code(s): R51.9 - Headache, unspecified Category: Medical Qualifiers: Headache type: unspecified Headache chronicity pattern: chronic headache Intractability: not intractable Qualified Code(s): R51.9 - Headache, unspecified; G89.29 - Other chronic pain (3) Pulmonary nodules: Code(s): R91.8 - Other nonspecific abnormal finding of lung field Category: Medical (4) Pneumonitis: Code(s): J98.4 - Other disorders of lung Category: Medical Plan home sleep study start Dymista repeat CT chest 07/2024 conitnue symbicort F/U August 2024 Orders: Orders XR shoulder LT min 2V Today M25.512 - Pain in left shoulder Medications: New azelastine-fluticasone 137-50 mcg/spray (Dymista) administer into each nostril 1 spray intranasal BID 23 grams 6RF 30 days Coding Level of Care Code Est Pt Level 4 (94777) Diagnoses Left shoulder pain, unspecified chronicity M25.512 Chronicity: unspecified Chronic nonintractable headache, unspecified headache type R51.9; G89.29 Headache type: unspecified Headache chronicity pattern: chronic headache Intractability: not intractable Pulmonary nodules R91.8 Pneumonitis J98.4 Time Spent (min) 17
== END 2023-12-16 14:49 | disposition home or self-care (01) ==
PROVIDERS: PCP Family Medicine; Visit Provider Hospitalist
DX: M25.512 Pain in left shoulder (principal); R51.9 Headache, unspecified; G89.29 Other chronic pain; R91.8 Other nonspecific abnormal finding of lung field; J98.4 Other disorders of lung
CPT/HCPCS: 99214

== ENCOUNTER → 2023-12-16 14:15 | Outpatient (BNVA) | payer OTHER, SELFPAY | PROVIDERS: PCP Family Medicine; Visit Provider Hospitalist | DX: G47.33 Obstructive sleep apnea (adult) (pediatric) (principal); J98.4 Other disorders of lung; R91.8 Other nonspecific abnormal finding of lung field; R51.9 Headache, unspecified; M25.512 Pain in left shoulder | CPT/HCPCS: 99212 ==

== ENCOUNTER 2023-12-19 15:15 | Outpatient (REF) | payer OTHER, SELFPAY ==
--- NOTE | ~2023-12-19 | XR_ITS ---
EXAMINATION: XR SHOULDER, LEFT CLINICAL INFORMATION: Left shoulder pain. COMPARISON: None available. TECHNIQUE: AP external rotation, Grashey, scapular Y, and axillary views of the left shoulder. FINDINGS: Bones are osteopenic. Mild acromioclavicular and glenohumeral osteoarthritis. No fracture or malalignment. Soft tissues are unremarkable. No osseous lesions. Calcified granulomas are present in the left hemithorax. XR/XR shoulder LT min 2V IMPRESSION: Mild acromioclavicular and glenohumeral osteoarthritis. No acute osseous findings. Electronically signed by: Dawson Kelly MD 01/12/2024 07:32 PM EDT
== END 2023-12-19 15:16 | disposition home or self-care (01) ==
LOC: HO.XRAY 15:15
PROVIDERS: PCP Family Medicine; Visit Provider Hospitalist
DX: M25.512 Pain in left shoulder (principal)
CPT/HCPCS: 73030

== ENCOUNTER 2023-12-22 14:00 | Outpatient (RCR) | payer OTHER, SELFPAY ==
--- NOTE | 2023-11-20 14:38 | MHC.PT.EP ---
[facility] [place] Office [place] Office [place] Office [address] [place] [address] Dr Melonie Elizondo [address] [phone] F: [phone] F: [phone] F: [phone] F: [phone] Physical Therapy Plan of Care Date of Evaluation: 11/20/23 Date of Surgery: Diagnosis: LEFT SH PAIN, CERVICALGIA Assessment: 63 YO FEMALE REF TO PT W 9 MONTH H/O Lt SH AND CERVICAL PAIN- SHE IS LIMITED W ADLs/ LIFTING/ REACHING/ Lt UE USAGE AND HAS BALLISTIC TECHNICIAN ASSIST 32 HRS/WK. THE Pt HAS DECR POSTURAL AWARENESS W (+) LUMBOSACRAL ASYMM CREATING A PSEUDOSCOL (H/O LB SURG), AROM Lt SH, LIMITED CERV AROM, (+) STRENGTH DEFICITS IN Lt SH COMPLEX-POST RC / SCAP MM, (+) NEER'S SIGN Lt, AND FLUCTUATING PAIN W OCCAS RADIATION INTO Lt DELTOID. SKILLED PT IS INDICATED TO REDUCE CERV/ Lt UE PAIN AND MUSCLE TENSION, IMPROVE POSTURE AND HER SELF-CORRECTION OF BODY MECH TO REDUCE CERV STRESS, AND NORMALIZE AROM IN Lt SH AND CERV REGION. THE Pt IS IN AGREEMENT W POC AND APPEARS MOTIVATED TO ADDRESS THE ABOVE FINDINGS. Frequency and Duration: The patient will be seen 2 x WK x 4 WKS Short Term Goals: DECR CERV AND Lt PROX UE PAIN TO 2-3/10 Pt INDEP W SELF CORRECT POSTURE AND BODY MECH TO DECR CERV STRESS INITIATE HEP REDUCE TISSUE TENSION IN Lt UT/ TRUNK -> WFL AROM Lt SH AND IMPROVED CERV AROM Shelter Goals: Pt INDEP W HEP AND SELF-SX MGMT TECHN Pt RESUME REGULAR ADLs EVIDENT W IMPROVED SPADI (AT EVAL 114/130) Pt IMPROVE Lt SH COMPLEX STRENGTH BY 1 GRADE Treatment Plan: Modalities to reduce pain, spasms and effusion. Manual therapy to restore motion and function. Therapeutic exercise to improve strength and flexibility. Neuromuscular re-education for posture and balance. Therapeutic activities to return to functional activities of daily living. Electronically signed by: ANDRES OLIVA,PT Please sign and return to therapist. Thank you for your referral.
--- NOTE | 2024-01-09 10:41 | MHC.PT.DC ---
[facility] [place] [facility] [place] Office [address] Melonie Elizondo [address] [phone] F: [phone] F: [phone] F: [phone] F: [phone] Physical Therapy Discharge Report Diagnosis: LEFT SH PAIN, CERVICALGIA Date of Surgery: Date of Evaluation: 11/20/23 Date of Discharge: 01/09/24 Treatments to Date: 7 Cancellations to Date: 3 No Shows to Date: 2 Discharge Status: Improved Function Independent with HEP Discharge Summary: THE Pt HAS RESPONDED WELL IN PT-> WE ADDRESSED HER POSTURE, EASED SOFT TISSUE IRRITABILITY, AND DEV A PROGRESSIVE HEP FOR SELF SX MGMT. THE Pt HAS NOT ATTENDED LAST FEW SCHED PT APPTS AND, THERFORE, A FORMAL REASSESSMENT WAS NOT PERFORMED. Electronically signed by: ANDRES OLIVA,PT Please sign and return to therapist. Thank you for your referral.
== END 2024-01-09 10:45 | disposition home or self-care (01) ==
LOC: HO.PT 14:00
PROVIDERS: PCP Family Medicine; Visit Provider Family Medicine
DX: M25.512 Pain in left shoulder (principal); M54.2 Cervicalgia; R51.9 Headache, unspecified
CPT/HCPCS: 97110; 97140; 97162; 97535

== ENCOUNTER 2023-12-31 11:18 | Outpatient (AMB) | payer OTHER, SELFPAY ==
--- NOTE | 2023-12-31 11:36 | A.OFFPC_ITS ---
Vital Signs 12/31/23 11:39 Height 5 ft 3 in Weight 170 lb 4 oz BMI 30.2 BP 120/70 Blood Pressure Location Lt brachial Position Sitting Respiration 16 Pulse 68 Pulse Source Pulse Oximeter Temp 97.7 F Temp Source Tympanic Pulse Oximetry (%) 98 Oxygen Delivery Method Room Air Intake Visit Reasons: f/u hypertension Intake Note: f/u for HTN LFT arm pain and would like results for x-ray of her LFT shoulder Allergies nabumetone [From Relafen] Allergy (Intermediate, Verified 12/16/23 14:19) ITCHING shellfish derived Allergy (Intermediate, Verified 12/16/23 14:19) Swelling tramadol [Tramadol] Allergy (Mild, Verified 12/16/23 14:19) ITCHING bee sting Adverse Reaction (Mild, Uncoded 12/16/23 14:19) Redness of Skin Tobacco use date assessed: 10/07/23 Dental Screening Dental Screen Date: 10/07/23 HPI f/u hypertension HPI Details 63 y/o female presents to f/u hypertensi on, chronic conditions. Blood pressure today 120/70. She is on metoprolol 25mg b.i.d. Has ongoing complaints of L arm/shoulder pain. She reports cervicalgia/headache much improved with physical therapy. HPI Comments History of Present Illness Details Documentation assistance for Jakob Orellana MD, was provided by Hong Resendiz, Skin Piler on 12/31/2023 at 11:59 AM EST. I, Dr. Orellana, have read, observed, and verified documentation. [facility] Medical History Headache SERGIO (obstructive sleep apnea) Bronchitis Pulmonary nodules Hydroureter Acid reflux Elevated fasting blood sugar Degenerative disc disease Arthritis Thyroid disease Irritable bowel syndrome (IBS) GERD (gastroesophageal reflux disease) Depression Lab test negative for COVID-19 virus History of cardiac murmur History of palpitations Surgical History History of back surgery Hx of cholecystectomy H/O excision of ganglion cyst History of esophagogastroduodenoscopy (EGD) Hx of tubal ligation H/O colonoscopy Family History Father Asthma Mother Arthritis Medical history non-contributory Brother Colon cancer Brother No problems noted. Brother No problems noted. Sister No problems noted. Sister No problems noted. Sister No problems noted. Son No problems noted. Son No problems noted. Daughter No problems noted. Social History Household Members: None Household Members Other:: alone Housing: House Alcohol intake: never Patient Tobacco Use Status: Never used Tobacco e-Cigarette/Vaping Use: Never Used Second Hand Smoke Exposure: No service: No Current occupational status: disabled Current occupational exposures/hazards: No Cognitive needs: No Hearing needs: No Vision needs: No Questionnaire Thrive Questionnaire Date Thrive assessed: 04/10/22 YUMIKO-7 AMB Questionnaire YUMIKO-7 Date YUMIKO - 7 assessed: 04/08/23 Source: Developed by Drs. Brian Abreu, Daina Ahmadi, Ralph Redmond and colleagues, with an educational brian from [employer]. Review of Systems Const Denies chills, Denies fatigue, Denies fever(s), Denies headache(s) and Denies weakness ENT Denies dizziness and Denies headache(s) Card Denies chest pain, Denies lightheadedness, Denies dyspnea and Denies other (Palpitations) Resp Denies cough, Denies dyspnea, Denies wheezing and Denies other ( shortness of breath) Musc Details: L shoulder pain Denies numbness and Denies tingling Neuro Denies dizziness, Denies headache(s), Denies numbness, Denies tingling, Denies paresthesias and Denies weakness Psych Denies anxiety and Denies depression Endo Denies fatigue Aller/Immun Denies wheezing Physical exam (Primary Care) Vital Signs: Last Vital Signs Temp 97.7 F 12/31/23 11:39 Pulse 68 12/31/23 11:39 Resp 16 12/31/23 11:39 BP 120/70 12/31/23 11:39 Pulse Ox 98 12/31/23 11:39 Oxygen Delivery Method Room Air 12/31/23 11:39 BMI result Body Mass Index 30.2 Tobacco/Smoking Status: Tobacco use Status Tobacco use date assessed 10/07/23 12/31/23 11:41 Patient Tobacco Use Status Never used Tobacco 12/31/23 11:41 e-Cigarette/Vaping Use Never Used 12/31/23 11:41 Thrive Assessment: Date of Thrive Assessment Date Thrive assessed 04/10/22 12/31/23 11:41 Const General: no acute distress and well developed Nutritional Appearance: well nourished Orientation/consciousness: patient oriented x3 [facility] Head: Yes normocephalic and Yes atraumatic Eyes General: appearance normal, both eyes and all related structures Pupils: Equal, round and reactive pupils present EOM: EOMs intact bilaterally Resp Effort & Inspection: normal respiratory effort Auscultation: clear to auscultation bilaterally Cardio Rate: regular rate Rhythm: regular rhythm Heart sounds: S1 normal heart sound present, S2 normal heart sound present, no gallops, no murmurs and no rubs Neuro General: patient oriented x3 and gait normal Cranial nerves: Yes Equal, round and reactive pupils present Psych Affect: normal affect Assessment and Plan Assessment & Plan (1) Hypertension: Code(s): I10 - Essential (primary) hypertension Qualifiers: Hypertension type: primary hypertension Qualified Code(s): I10 - Essential (primary) hypertension Plan: Blood?pressure?is?controlled.??Goal?is?less?than?140/90 Continue?current?medication (2) Left shoulder pain: Code(s): M25.512 - Pain in left shoulder Qualifiers: Chronicity: unspecified Qualified Code(s): M25.512 - Pain in left shoulder Plan: Ongoing?left?shoulder?pain. X-ray?still?pending Minimal?improvement?with?physical?therapy Referred?to?Ortho (3) Hypothyroidism: Code(s): E03.9 - Hypothyroidism, unspecified Plan: She?takes?levothyroxine Will?check?thyroid?hormone?levels?prior?to?next?visit (4) Cervicalgia: Code(s): M54.2 - Cervicalgia Plan: Much?improved?with?physical?therapy Continue?physical?therapy?and?I?encouraged?her?to?continue?exercises?after?she?i s?finished?with?formal?therapy. Still?has?shoulder?pain?and?this?could?result?in?resumption?of?her?nec k?pain?so?I?have?referred?her?to?Ortho (5) Headache: Code(s): R51.9 - Headache, unspecified Qualifiers: Headache chronicity pattern: chronic headache Headache type: unspecified Intractability: not intractable Qualified Code(s): R51.9 - Headache, unspecified; G89.29 - Other chronic pain Plan: Mostly?posterior?headaches?and? mildly?improved?with?physical?therapy?but?patient?still?notes?some?left?frontal? headaches?which?are?worse?with?nasal?congestion. She?was?given?a?nasal?antihistamine?by?pulmonology?and?I?recommend?she? continue?the Also?encouraged?warm?compresses She?has?not?been?taking?Echo?lately?and?I?encouraged?her?to?use?this?as?well Orders: Orders [facility] [place]. Panel Fast 2 Months Z00.00 - Encounter for general adult medical examination without abnormal findings Microalbumin, Random (w Creat) 2 Months I10 - Essential (primary) hypertension TSH reflex Free T4 2 Months Z00.00 - Encounter for general adult medical examination without abnormal findings Complete Blood Count Auto Diff 2 Months Z00.00 - Encounter for general adult medical examination without abnormal findings Lipid Panel 2 Months Z00.00 - Encounter for general adult medical examination without abnormal findings UA and rflx microscopic 2 Months Z00.00 - Encounter for general adult medical examination without abnormal findings Triiodothyronine T3 Total Today E03.9 - Hypothyroidism, unspecified Thyroid Stimulating Hormone Today E03.9 - Hypothyroidism, unspecified Free T4 (Free Thyroxine) Today E03.9 - Hypothyroidism, unspecified Referrals Orthopedics Referral M25.512 - Pain in left shoulder Coding Level of Care Code Est Pt Level 4 (41567) Diagnoses Primary hypertension I10 Hypertension type: primary hypertension Left shoulder pain, unspecified chronicity M25.512 Chronicity: unspecified Hypothyroidism E03.9 Cervicalgia M54.2 Chronic nonintractable headache, unspecified headache type R51.9; G89.29 Headache chronicity pattern: chronic headache Headache type: unspecified Intractability: not intractable
[2023-12-31 11:39] VITALS: BP 120/70; PULSE 68; RESP 16; TEMP 36.5; O2SAT 98; BMI 30.2
== END 2023-12-31 12:13 | disposition home or self-care (01) ==
PROVIDERS: PCP Family Medicine; Visit Provider Family Medicine
DX: I10 Essential (primary) hypertension (principal); M25.512 Pain in left shoulder; E03.9 Hypothyroidism, unspecified; M54.2 Cervicalgia; R51.9 Headache, unspecified; G89.29 Other chronic pain
CPT/HCPCS: 99214

== ENCOUNTER 2024-02-17 12:36 | Outpatient (AMB) | payer OTHER, SELFPAY ==
[2024-02-17 12:41] VITALS: BMI 30.1
--- NOTE | 2024-02-17 12:41 | A.OFFVIS_ITS ---
Vital Signs 02/17/24 12:41 Height 5 ft 3 in Weight 170 lb BMI 30.1 Intake Visit Reasons: Left shoulder pain and weakness Intake Note: Margarette is a 63 year old left-hand dominant female who presents with complaints of progressively worsening left shoulder pain and weakness. The patient states that she injured her left shoulder after doing repetitive lifting approximately 1 year ago. She recently completed formal physical therapy which gave her no relief. She has tried Tylenol and anti-inflammatory medicines which gave her minimal relief. The patient states that for the last 6 months she has had difficulty lifting her left hand above shoulder height. She has had injections in the past which gave her no relief. She has failed the last 6 weeks of conservative treatment. Allergies nabumetone [From Relafen] Allergy (Intermediate, Verified 02/17/24 12:48) ITCHING shellfish derived Allergy (Intermediate, Verified 02/17/24 12:48) Swelling tramadol [Tramadol] Allergy (Mild, Verified 02/17/24 12:48) ITCHING bee sting Adverse Reaction (Mild, Uncoded 12/16/23 14:19) Redness of Skin Medication List - Last Reconciled 02/17/24 by Kaleb Peguero MD azelastine-fluticasone 137-50 mcg/spray (Dymista) 1 spray intranasal BID 30 days budesonide-formoterol 160-4.5 mcg/actuation (Symbicort) 2 puffs inhalation BID 30 days buspirone 10 mg PO BID cholecalciferol (vitamin D3) (Vitamin D3) 25 mcg PO DAILY 30 days fexofenadine 180 mg PO DAILY fluticasone propionate 50 mcg/actuation (Allergy Relief (fluticasone)) 2 sprays intranasal DAILY 1 month ibuprofen 400 mg PO Q8H PRN 30 days [ISDIN lampdapil PO] levothyroxine 150 mcg PO DAILY 30 days lorazepam 1 mg PO DAILY PRN magnesium citrate 800 mg PO BID mecobalamin (vitamin B12) 1,000 mcg sublingual DAILY metoprolol succinate ER 25 mg PO BID naloxone 4 mg/actuation (Narcan) 4 mg intranasal Q2M PRN oxycodone 10 mg PO Q12H PRN 30 days pantoprazole 20 mg PO QAM paroxetine HCl 10 mg PO BEDTIME PRN polyethylene glycol 3350 (Purelax) 17 grams PO DAILY wpwnmcau-jrlq-hjzzy-oreg-capry 100 mg-150 mg- 50 mg-150 mg caps PO zolpidem 10 mg PO BEDTIME PRN PFSH Medical History Headache SERGIO (obstructive sleep apnea) Bronchitis Pulmonary nodules Hydroureter Acid reflux Elevated fasting blood sugar Degenerative disc disease Arthritis Thyroid disease Irritable bowel syndrome (IBS) GERD (gastroesophageal reflux disease) Depression Lab test negative for COVID-19 virus History of cardiac murmur History of palpitations Surgical History History of back surgery Hx of cholecystectomy H/O excision of ganglion cyst History of esophagogastroduodenoscopy (EGD) Hx of tubal ligation H/O colonoscopy Family History Father Asthma Mother Arthritis Medical history non-contributory Brother Colon cancer Brother No problems noted. Brother No problems noted. Sister No problems noted. Sister No problems noted. Sister No problems noted. Son No problems noted. Son No problems noted. Daughter No problems noted. Social History Household Members: None Household Members Other:: alone Housing: House Alcohol intake: never Patient Tobacco Use Status: Never used Tobacco e-Cigarette/Vaping Use: Never Used Second Hand Smoke Exposure: No service: No Current occupational status: disabled Current occupational exposures/hazards: No Cognitive needs: No Hearing needs: No Vision needs: No Physical Exam Vital Signs: BMI result Body Mass Index 30.1 Const Other: Well-nourished well-developed very friendly female awake alert and oriented x3 in no acute distress Extrem Other: Bilateral upper extremity examination shows good capillary refill, no skin lesions noted, normal sensation light touch Left shoulder examination shows decreased range of motion when compared to her right shoulder, 4+ out of 5 strength with supraspinatus testing, positive impingement signs, tenderness over her acromioclavicular joint, no instability Results Reviewed Results Reviewed: X-rays of the patient's left shoulder show severe acromioclavicular joint narrowing, a type 3 acromion, no acute bony abnormalities Assessment & Plan Assessment & Plan (1) Left shoulder pain: Code(s): M25.512 - Pain in left shoulder Category: Medical Qualifiers: Chronicity: unspecified Qualified Code(s): M25.512 - Pain in left shoulder Plan Margarette presents with progressively worsening left shoulder pain and weakness due to impingement syndrome, acromioclavicular joint arthritis and possible rotator cuff tearing. Thus, I will send the patient for an MRI of her left shoulder for further evaluation. I will see her back once the MRI is completed to discuss the findings and treatment options. She will continue with her bsohc-dh-jeajaa exercises in the meantime to prevent stiffness. Feel free to call me at any time should questions regarding her orthopedic management arise. Thank you very much for asking me to see this very friendly patient. I spent 20 minutes in reviewing the patient's records and imaging studies, seeing the patient and documenting in the medical record. Orders: Orders MR shoulder LT wo con Today M25.512 - Pain in left shoulder Coding Level of Care Code New Pt Level 3 (25453) Complex EM visit Add On G2211 Diagnoses Left shoulder pain, unspecified chronicity M25.512 Chronicity: unspecified
== END 2024-02-17 13:08 | disposition home or self-care (01) ==
PROVIDERS: PCP Family Medicine; Visit Provider Orthopaedic Surgery
DX: M25.512 Pain in left shoulder (principal)
CPT/HCPCS: 99203; G2211

== ENCOUNTER → 2024-02-17 12:36 | Outpatient (BNVA) | payer OTHER, SELFPAY | PROVIDERS: PCP Family Medicine; Visit Provider Orthopaedic Surgery | DX: M25.512 Pain in left shoulder (principal) | CPT/HCPCS: 99202 ==

== ENCOUNTER 2024-03-03 13:24 | Outpatient (AMB) | payer OTHER, SELFPAY ==
[2024-03-03 14:10] VITALS: BP 132/68; PULSE 72; BMI 30.8
--- NOTE | 2024-03-03 14:10 | MHC.OFFVIS ---
Vital Signs 03/03/24 14:10 Height 5 ft 3 in Weight 174 lb 2.643 oz BMI 30.8 BP 132/68 Blood Pressure Location Lt brachial Position Sitting Pulse 72 Pulse Source Monitor Intake Visit Reasons: 6m follow up/echo Allergies nabumetone [From Relafen] Allergy (Intermediate, Verified 02/17/24 12:48) ITCHING shellfish derived Allergy (Intermediate, Verified 02/17/24 12:48) Swelling tramadol [Tramadol] Allergy (Mild, Verified 02/17/24 12:48) ITCHING bee sting Adverse Reaction (Mild, Uncoded 12/16/23 14:19) Redness of Skin Medication List - Last Reconciled 03/03/24 by Jesse Hudson MD azelastine-fluticasone 137-50 mcg/spray (Dymista) 1 spray intranasal BID PRN budesonide-formoterol 160-4.5 mcg/actuation (Symbicort) 2 puffs inhalation BID PRN buspirone 10 mg PO BID PRN cholecalciferol (vitamin D3) (Vitamin D3) 25 mcg PO DAILY 30 days fexofenadine 180 mg PO DAILY PRN ibuprofen 400 mg PO Q8H PRN 30 days levothyroxine 150 mcg PO DAILY 30 days lorazepam 1 mg PO DAILY PRN magnesium citrate 800 mg PO BID mecobalamin (vitamin B12) 1,000 mcg sublingual DAILY metoprolol succinate ER 25 mg PO BID oxycodone 10 mg PO Q12H PRN 30 days pantoprazole 20 mg PO QAM PRN paroxetine HCl 10 mg PO BEDTIME PRN polyethylene glycol 3350 (Purelax) 17 grams PO DAILY PRN lysobvqw-miqx-ojiwv-oreg-capry 100 mg-150 mg- 50 mg-150 mg caps PO zolpidem 10 mg PO BEDTIME HPI Comments Details: 63-year-old female here for follow-up. She has background history of moderate aortic valve stenosis. She has been struggling with diarrhea and has lost significant weight. She is being seen by GI for that. He was complaining of palpitations previously and we arranged a Holter monitor which was normal. She was complaining of some chest discomfort on last visit. She had some risk factors for coronary disease. She was referred for exercise stress test. She developed ischemic appearing EKG changes without any significant symptoms. She continues to get some chest discomfort mostly complaining of some palpitations that her heart races suddenly. She is undergoing workup for her abdominal symptoms. She underwent CT enterography which showed constipation and fatty infiltration of the pancreas. She was referred for CT coronary angiogram which did not show any significant CAD. She is denying CP. She has some dyspnea and is following with Dr Okeefe. She continues to get some palpitations. Holter was normal previously. 01/06/23: She returns for follow-up. She is saying that she has been feeling palpitations at nighttime and has noticed her blood pressure to be elevated. She is hard primary care physician and was advised to start metoprolol succinate 25 mg once a day. She has been taking the regularly. She is still feeling palpitations at time but noticed that her heart rates are normal. No chest discomfort or any other concerning symptoms currently. 03/03/2024: She returns after recent echocardiography. ECHO has shown moderate severe aortic valve stenosis. She has no clear symptoms. Denying chest pain, shortness of breath or dizziness/syncope. She occasionally gets palpitations at nighttime when she is resting. [facility] Medical History Headache SERGIO (obstructive sleep apnea) Bronchitis Pulmonary nodules Hydroureter Acid reflux Elevated fasting blood sugar Degenerative disc disease Arthritis Thyroid disease Irritable bowel syndrome (IBS) GERD (gastroesophageal reflux disease) Depression Lab test negative for COVID-19 virus History of cardiac murmur History of palpitations Surgical History History of back surgery Hx of cholecystectomy H/O excision of ganglion cyst History of esophagogastroduodenoscopy (EGD) Hx of tubal ligation H/O colonoscopy Family History Father Asthma Mother Arthritis Medical history non-contributory Brother Colon cancer Brother No problems noted. Brother No problems noted. Sister No problems noted. Sister No problems noted. Sister No problems noted. Son No problems noted. Son No problems noted. Daughter No problems noted. Social History Household Members: None Household Members Other:: alone Housing: House Alcohol intake: never Patient Tobacco Use Status: Never used Tobacco e-Cigarette/Vaping Use: Never Used Second Hand Smoke Exposure: No service: No Current occupational status: disabled Current occupational exposures/hazards: No Cognitive needs: No Hearing needs: No Vision needs: No Review of Systems Const Denies weakness ENT Denies dizziness Card Denies chest pain, Denies chest pain with activity, Denies syncope, Denies rapid heart rate, Denies pedal edema, Denies edema, Denies leg edema, Denies lightheadedness, Reports palpitations, Denies dyspnea, Denies dyspnea on exertion and Denies orthopnea Resp Denies cough, Denies dyspnea and Denies dyspnea on exertion GI Denies hematochezia and Denies change in stool character Musc Denies abnormal gait, Denies muscle cramps, Denies muscle weakness, Denies numbness, Denies radiating pain into limb and Denies tingling Neuro Denies abnormal gait, Denies dizziness, Denies syncope, Denies numbness, Denies tingling and Denies weakness Endo Reports palpitations Physical Exam Vital Signs: Last Vital Signs Pulse 72 03/03/24 14:10 BP 132/68 03/03/24 14:10 BMI result Body Mass Index 30.8 GENERAL APPEARANCE: in no acute distress. NECK/THYROID: no carotid bruit, no jugular venous distention. SKIN: no suspicious lesions, warm and dry. HEART: Ejection systolic murmur in the aortic area with preserved 2nd heart sound. Murmur radiation to carotids. Carotid upstroke is somewhat delayed. LUNGS: clear to auscultation bilaterally. ABDOMEN: normal, bowel sounds present, soft, nontender, nondistended. EXTREMITIES: no clubbing, cyanosis, or edema. PERIPHERAL PULSES: equal. NEUROLOGIC: nonfocal, alert and oriented. PSYCH: mood/affect full range. Office Procedures EKG Details: Sinus rhythm 72 beats per minute, normal axis, normal ECG, QTC 413 milliseconds. [id number], Complete Assessment & Plan Assessment & Plan (1) Aortic stenosis: Code(s): I35.0 - Nonrheumatic aortic (valve) stenosis Category: Medical (2) Hypertension: Code(s): I10 - Essential (primary) hypertension Category: Medical Qualifiers: Hypertension type: primary hypertension Qualified Code(s): I10 - Essential (primary) hypertension Plan 63-year-old female here for follow-up. She has shseqwrg-[id number] aortic valve stenosis. Clinically she is asymptomatic at this point. She occasionally gets palpitations but these are at nighttime when she is resting and do not last for long time. During the day she does not have any symptoms. We will monitor this for now if she has frequent episodes then we will arrange monitoring. In terms of aortic stenosis, she has [id number] aortic stenosis at this point. She is completely asymptomatic. I have discussed with her in detail about symptoms of aortic valve stenosis and she will reach out to us if any of those symptoms develop. We will repeat echocardiography in 6 months and monitor every 6 months from here onwards. Thank you for allowing me to participate in the care of your patient. Please feel free to contact me if you have any questions. Orders: Orders CA echo transthoracic complete 05/04/24 Jesse Hudson MD I35.0 - Nonrheumatic aortic (valve) stenosis Medications: Changed From azelastine-fluticasone 137-50 mcg/spray (Dymista) administer into each nostril 1 spray intranasal BID 30 days 23 grams 6RF To azelastine-fluticasone 137-50 mcg/spray (Dymista) administer into each nostril 1 spray intranasal BID PRN Jesus Okeefe MD From budesonide-formoterol 160-4.5 mcg/actuation (Symbicort) 2 puffs inhalation BID 30 days 10.2 grams 11RF J44.9 - Chronic obstructive pulmonary disease, unspecified To budesonide-formoterol 160-4.5 mcg/actuation (Symbicort) 2 puffs inhalation BID PRN J44.9 - Chronic obstructive pulmonary disease, unspecified Jesus Okeefe MD From pantoprazole 20 mg PO QAM 90 tabs 2RF To pantoprazole 20 mg PO QAM PRN Rupali Durant MD From polyethylene glycol 3350 (Purelax) 17 grams PO DAILY 30 packets 2RF To polyethylene glycol 3350 (Purelax) 17 grams PO DAILY PRN Rupali Durant MD Coding Level of Care Code Est Pt Level 4 (66402) Diagnoses Aortic stenosis I35.0 Primary hypertension I10 Hypertension type: primary hypertension CPT Codes EKG - CPT: 56674-[id number], Complete ([id number])
== END 2024-03-03 14:40 | disposition home or self-care (01) ==
LOC: HO.HCS 13:25
PROVIDERS: PCP Family Medicine; Visit Provider Internal Medicine Cardiovascular Disease
DX: I35.0 Nonrheumatic aortic (valve) stenosis (principal); I10 Essential (primary) hypertension
CPT/HCPCS: 93010; 99214

== ENCOUNTER → 2024-03-03 13:24 | Outpatient (BNVA) | payer OTHER, SELFPAY | PROVIDERS: PCP Family Medicine; Visit Provider Internal Medicine Cardiovascular Disease | DX: I35.0 Nonrheumatic aortic (valve) stenosis (principal); I10 Essential (primary) hypertension; R00.2 Palpitations | CPT/HCPCS: 93005; 99212 ==

== ENCOUNTER 2024-04-30 11:44 | Outpatient (AMB) | payer OTHER, SELFPAY ==
[2024-04-30 13:11] VITALS: BP 132/90; PULSE 65; TEMP 37.1; O2SAT 98; BMI 31.5
--- NOTE | 2024-04-30 13:11 | AM.OFFWIN_ITS ---
Intake Vital Signs 04/30/24 13:11 Height 5 ft 3 in Weight 178 lb BMI 31.5 BP 132/90 H Blood Pressure Location Lt brachial Position Sitting Pulse 65 Pulse Source Pulse Oximeter Temp 98.7 F Temp Source Oral Pulse Oximetry (%) 98 Oxygen Delivery Method Room Air Intake Visit Reasons: EP headache, cough, body aches, wheezing Intake Note: Patient here for headache,cough, runny nose, body aches and wheezing that started 04/27. Patient Tobacco Use Status: Never used Tobacco Allergies nabumetone [From Relafen] Allergy (Intermediate, Verified 04/30/24 13:16) ITCHING shellfish derived Allergy (Intermediate, Verified 04/30/24 13:16) Swelling tramadol [Tramadol] Allergy (Mild, Verified 04/30/24 13:16) ITCHING bee sting Adverse Reaction (Mild, Uncoded 04/30/24 13:16) Redness of Skin Do you need a note to return to daycare/school/sports/work: No HPI EP headache, cough, body aches, wheezing HPI Details This is a 63-year-old female patient who presents to the walk-in clinic today with report of 3 day history of headache, body aches, cough, intermittent wheezing. Reports that her grandchildren were recently sick, however she was not in close contact with them. Denies any fever or chills. Denies any GI symptoms. Has an albuterol inhaler at home for p.r.n. use, which she used yesterday with some mild relief. Has also been taking Coricidin with some minor benefit. [facility] Medical History Headache SERGIO (obstructive sleep apnea) Bronchitis Pulmonary nodules Hydroureter Acid reflux Elevated fasting blood sugar Degenerative disc disease Arthritis Thyroid disease Irritable bowel syndrome (IBS) GERD (gastroesophageal reflux disease) Depression Lab test negative for COVID-19 virus History of cardiac murmur History of palpitations Surgical History History of back surgery Hx of cholecystectomy H/O excision of ganglion cyst History of esophagogastroduodenoscopy (EGD) Hx of tubal ligation H/O colonoscopy Family History Father Asthma Mother Arthritis Medical history non-contributory Brother Colon cancer Brother No problems noted. Brother No problems noted. Sister No problems noted. Sister No problems noted. Sister No problems noted. Son No problems noted. Son No problems noted. Daughter No problems noted. Social History Household Members: None Household Members Other:: alone Housing: House Alcohol intake: never Patient Tobacco Use Status: Never used Tobacco e-Cigarette/Vaping Use: Never Used Second Hand Smoke Exposure: No service: No Current occupational status: disabled Current occupational exposures/hazards: No Cognitive needs: No Hearing needs: No Vision needs: No Review of Systems Const All systems reviewed & are unremarkable except as noted in HPI and below Physical Exam Const General: cooperative and no acute distress HEENT Head: Yes normal to inspection and Yes normocephalic Ears: hearing grossly normal bilaterally, external ears normal and TM's normal bilaterally General nose exam: Normal external nose present, Normal nares present and No nasal discharge present Face and sinus: Yes normal facial exam and Yes sinuses nontender Mouth: Normal oral and palatal mucosa present Throat: Yes posterior oropharynx normal Neck Neck: Yes no lymphadenopathy Resp Effort & Inspection: normal respiratory effort and Actively coughing Quality: dry Auscultation: clear to auscultation bilaterally Cardio Rate: regular rate Rhythm: regular rhythm Skin General skin exam: no rashes or lesions noted Extrem General: Yes capillary refill normal and Yes no clubbing, cyanosis or edema Psych Appearance: grossly normal Mental Status: mental status grossly normal Speech and movement: Normal speech and movement present Assessment & Plan Assessment & Plan (1) Upper respiratory infection: Code(s): J06.9 - Acute upper respiratory infection, unspecified Qualifiers: URI type: unspecified viral URI Qualified Code(s): J06.9 - Acute upper respiratory infection, unspecified Plan: Symptoms consistent with viral illness. Viral swab for COVID/flu/RSV was obtained today in the office. Patient aware they will be notified with results once these are available. She already has an albuterol inhaler she can use prn. We discussed self-limiting nature of viral illnesses and conservative measures for these symptoms, including otc cold/flu medications, rest, hydration, healthy food/vitamin intake. We discussed lack of efficacy with antibiotics for viral illnesses. I do feel she may benefit from short course of benzonatate. Reviewed indications, use, possible side effects of these medications. If she does not improve with conservative measures, or if symptoms worsen/new symptoms develop, she can return to the clinic or the emergency department if severe. Patient verbalizes understanding and agrees to plan. Orders: Orders SARS-CoV2/FLU/RSV Today J06.9 - Acute upper respiratory infection, unspecified Medications: New benzonatate Take 1 capsule twice a day by mouth for 7 days for cough. 100 mg PO BID 7 days PRN 14 caps 0RF cough R05.9 - Cough, unspecified Coding Level of Care Code Est Pt Level 4 (67757) Diagnoses Viral upper respiratory tract infection J06.9 URI type: unspecified viral URI
== END 2024-04-30 13:44 | disposition home or self-care (01) ==
PROVIDERS: PCP Family Medicine; Visit Provider Nurse Practitioner Family
DX: J06.9 Acute upper respiratory infection, unspecified (principal)

== ENCOUNTER 2024-04-30 11:44 | Outpatient (REF) | payer OTHER, SELFPAY ==
[2024-04-30 17:57] LABS: Influenza A PCR NEGATIVE (Negative); Influenza B PCR NEGATIVE (Negative); Resp Syncy Virus RNA Qual PCR POSITIVE (Negative); SARS COV2 PCR INHOUSE NEGATIVE (Negative)
== END 2024-04-30 11:45 | disposition home or self-care (01) ==
LOC: HO.LNP 11:44
PROVIDERS: Nurse Practitioner Family; PCP Family Medicine
DX: J06.9 Acute upper respiratory infection, unspecified (principal)
CPT/HCPCS: 0241U; 99212

== ENCOUNTER → 2024-05-17 14:49 | Outpatient (BNV) | payer OTHER, SELFPAY | PROVIDERS: PCP Family Medicine; Visit Provider Radiology Diagnostic Radiology | DX: M25.412 Effusion, left shoulder (principal); M89.8X1 Other specified disorders of bone, shoulder; M67.814 Other specified disorders of tendon, left shoulder | CPT/HCPCS: 73221 ==

== ENCOUNTER 2024-05-17 14:50 | Outpatient (REF) | payer OTHER, SELFPAY ==
--- NOTE | ~2024-05-17 | MR_ITS ---
EXAMINATION: MRI LEFT SHOULDER WITHOUT CONTRAST HISTORY: M25.512 - Pain in left shoulder COMPARISON: Correlation is made with plain films of the left shoulder dated September 18, 2023. TECHNIQUE: Coronal T1, T2, and fat suppressed T2, axial fat suppressed proton density, and sagittal T2 weighted MR images of the left shoulder were obtained. FINDINGS: There is a small focus of marrow edema in the greater tuberosity of the humerus. Bone marrow signal intensity is otherwise normal. There is a small glenohumeral joint effusion. There is mild to moderate osteoarthritis of the AC joint with cartilage loss and osteophyte formation. There is degenerative signal in the distal supraspinatus tendon consistent with tendinosis. There is a tiny linear focus of increased T2 signal intensity at the insertion of the supraspinatus tendon consistent with a tiny full-thickness tear. There is fluid in the subdeltoid/subacromial bursa. There is no tendon retraction or muscle atrophy. The subscapularis, teres minor, and infraspinatus tendons are intact. The biceps tendon is normally located. The glenoid labrum is grossly unremarkable in appearance. MR/MR shoulder LT wo con IMPRESSION: 1. Small focus of marrow edema in the greater tuberosity of the humerus. Small joint effusion. 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 2. Tendinosis of the supraspinatus tendon with a tiny full-thickness tear evidence insertion the greater tuberosity of humerus. Electronically signed by: Brian Crockett MD 05/18/2024 07:37 AM [facility]
== END 2024-05-17 14:51 | disposition home or self-care (01) ==
LOC: HO.MRI 14:50
PROVIDERS: PCP Family Medicine; Visit Provider Orthopaedic Surgery
DX: M25.512 Pain in left shoulder (principal)
CPT/HCPCS: 73221

== ENCOUNTER 2024-05-19 13:11 | Outpatient (AMB) | payer OTHER, SELFPAY ==
[2024-05-19 13:18] VITALS: BMI 31.5
--- NOTE | 2024-05-19 13:18 | A.OFFVIS_ITS ---
Vital Signs 05/19/24 13:18 Height 5 ft 3 in Weight 178 lb BMI 31.5 Intake Visit Reasons: Left shoulder pain Intake Note: Margarette is a 63 year old left-hand dominant female who presents with complaints of progressively worsening left shoulder pain and stiffness. The patient states that she injured her left shoulder after doing repetitive lifting approximately 1 year ago. She recently completed formal physical therapy which gave her no relief. She has tried Tylenol and anti-inflammatory medicines which gave her minimal relief. The patient states that for the last 6 months she has had difficulty lifting her left hand above shoulder height. She has had injections in the past which gave her no relief. She has failed the last 6 weeks of conservative treatment. Allergies nabumetone [From Relafen] Allergy (Intermediate, Verified 05/19/24 13:18) ITCHING shellfish derived Allergy (Intermediate, Verified 05/19/24 13:18) Swelling tramadol [Tramadol] Allergy (Mild, Verified 05/19/24 13:18) ITCHING bee sting Adverse Reaction (Mild, Uncoded 05/19/24 13:18) Redness of Skin Medication List - Last Reconciled 05/20/24 by Kaleb Peguero MD azelastine-fluticasone 137-50 mcg/spray (Dymista) 1 spray intranasal BID PRN benzonatate 100 mg PO BID PRN 7 days budesonide-formoterol 160-4.5 mcg/actuation (Symbicort) 2 puffs inhalation BID PRN buspirone 10 mg PO BID PRN cholecalciferol (vitamin D3) (Vitamin D3) 25 mcg PO DAILY 30 days fexofenadine 180 mg PO DAILY PRN ibuprofen 400 mg PO Q8H PRN 30 days levothyroxine 150 mcg PO DAILY 90 days lorazepam 1 mg PO DAILY PRN magnesium citrate 800 mg PO BID mecobalamin (vitamin B12) 1,000 mcg sublingual DAILY metoprolol succinate ER 25 mg PO BID oxycodone 10 mg PO Q12H PRN 30 days pantoprazole 20 mg PO QAM PRN paroxetine HCl 10 mg PO BEDTIME PRN polyethylene glycol 3350 (Purelax) 17 grams PO DAILY PRN ruklcxzl-zfvu-hfqcw-oreg-capry 100 mg-150 mg- 50 mg-150 mg caps PO zolpidem 10 mg PO BEDTIME PFSH Medical History Headache SERGIO (obstructive sleep apnea) Bronchitis Pulmonary nodules Hydroureter Acid reflux Elevated fasting blood sugar Degenerative disc disease Arthritis Thyroid disease Irritable bowel syndrome (IBS) GERD (gastroesophageal reflux disease) Depression Lab test negative for COVID-19 virus History of cardiac murmur History of palpitations Surgical History History of back surgery Hx of cholecystectomy H/O excision of ganglion cyst History of esophagogastroduodenoscopy (EGD) Hx of tubal ligation H/O colonoscopy Family History Father Asthma Mother Arthritis Medical history non-contributory Brother Colon cancer Brother No problems noted. Brother No problems noted. Sister No problems noted. Sister No problems noted. Sister No problems noted. Son No problems noted. Son No problems noted. Daughter No problems noted. Social History Household Members: None Household Members Other:: alone Housing: House Alcohol intake: never Patient Tobacco Use Status: Never used Tobacco e-Cigarette/Vaping Use: Never Used Second Hand Smoke Exposure: No service: No Current occupational status: disabled Current occupational exposures/hazards: No Cognitive needs: No Hearing needs: No Vision needs: No Physical Exam Vital Signs: BMI result Body Mass Index 31.5 Const Other: Well-nourished well-developed very friendly female awake alert and oriented x3 in no acute distress Extrem Other: Bilateral upper extremity examination shows good capillary refill, no skin lesions noted, normal sensation light touch Left shoulder examination shows decreased active and passive range of motion when compared to her right shoulder, 5/5 strength with supraspinatus testing, positive impingement signs, tenderness over her acromioclavicular joint, no instability Results Reviewed Results Reviewed: MRI of the patient's left shoulder show severe acromioclavicular joint saurabh rowing, a type 3 acromion, signal change within the supraspinatus tendon most likely due to adhesive capsulitis Assessment & Plan Assessment & Plan (1) Left shoulder pain: Code(s): M25.512 - Pain in left shoulder Category: Medical Qualifiers: Chronicity: unspecified Qualified Code(s): M25.512 - Pain in left shoulder (2) Impingement syndrome of left shoulder: Code(s): M75.42 - Impingement syndrome of left shoulder Category: Medical Plan Ms. Fry presents with progressively worsening left shoulder pain and stiffness due to impingement syndrome, acromioclavicular joint arthritis and adhesive capsulitis. I had a lengthy discussion with the patient regarding the treatment options. At this point she has failed continued non operative treatments. The risks and benefits of left shoulder surgery were discussed at length with the patient. The patient wishes to proceed with surgery. Surgery will most likely involve left shoulder diagnostic arthroscopy with distal clavicle excision, acromioplasty, capsular release and manipulation under anesthesia. The patient will be scheduled for next available date. She will follow-up as instructed. Feel free to call me at any time should questions regarding her orthopedic management arise. I spent 20 minutes in reviewing the patient's records and imaging studies, seeing the patient and documenting in the medical record. Coding Level of Care Code Est Pt Level 3 (44187) Complex EM visit Add On G2211 Diagnoses Left shoulder pain, unspecified chronicity M25.512 Chronicity: unspecified Impingement syndrome of left shoulder M75.42
== END 2024-05-19 13:53 | disposition home or self-care (01) ==
PROVIDERS: PCP Family Medicine; Visit Provider Orthopaedic Surgery
DX: M25.512 Pain in left shoulder (principal); M75.42 Impingement syndrome of left shoulder
CPT/HCPCS: 99213; G2211

== ENCOUNTER → 2024-05-19 13:11 | Outpatient (BNVA) | payer OTHER, SELFPAY | PROVIDERS: PCP Family Medicine; Visit Provider Orthopaedic Surgery | DX: M25.512 Pain in left shoulder (principal); M75.42 Impingement syndrome of left shoulder | CPT/HCPCS: 99212 ==

== ENCOUNTER → 2024-05-25 16:15 | Outpatient (BNVA) | payer OTHER, SELFPAY | PROVIDERS: PCP Family Medicine; Visit Provider Family Medicine | DX: Z01.818 Encounter for other preprocedural examination (principal); I10 Essential (primary) hypertension | CPT/HCPCS: 99212 ==

== ENCOUNTER 2024-06-18 09:45 | Outpatient (AMB) | payer OTHER, SELFPAY ==
--- NOTE | 2024-06-18 09:48 | A.OFFVIS_ITS ---
Vital Signs 06/18/24 09:49 Height 5 ft 3 in Weight 173 lb 1.006 oz BMI 30.7 BP 132/70 Blood Pressure Location Rt brachial Position Sitting Pulse 76 Pulse Source Pulse Oximeter Pulse Oximetry (%) 98 Oxygen Delivery Method Room Air Intake Visit Reasons: left shoulder arthroscopy with Dr. Peguero Allergies nabumetone [From Relafen] Allergy (Intermediate, Verified 06/18/24 09:52) ITCHING shellfish derived Allergy (Intermediate, Verified 06/18/24 09:52) Swelling tramadol [Tramadol] Allergy (Mild, Verified 06/18/24 09:52) ITCHING bee sting Adverse Reaction (Mild, Uncoded 06/18/24 09:52) Redness of Skin HPI Comments Details: The patient is a 63 year woman who was referred to Pulmonary for evaluation of an abnormal cardiac CT scan with numerous pulmonary nodules. apparently patient was in her usual state health until back in November 2021 which she developed COVID. After COVID she did develop worsening cough which is congested in nature with green phlegm. She had been evaluated by primary care and was given supportive care. Subsequently her symptoms worsen and she ended up getting a chest x-ray demonstrating evidence of bronchitis. She was given a course of antibiotics and prednisone. She has been feeling better since then. Still, still coughing up phlegm in the morning. In the meantime she has been evaluated for cardiac disease. She was referred to [facility] which she underwent a CT scan of the coronary arteries. This is a very limited view of the lungs. Although, I personally reviewed it and the patient had multiple pulmonary nodules largest 1 measuring 5 mm on the major fissure on the left. However, this is a very limited amount of lung parenchymal evaluation. And therefore the best way to further assess her pulmonary nodules would be to get a formal CT scan of the chest. We did talk about treating her bronchitis. However, she would like to hold off until she has her cardiac evaluation prior to starting any pulmonary medications. In the meantime I did recommend she can excelsior picker some Mucinex to try to help with the expectorate the phlegm in her lungs. If her respiratory symptoms worsen and if she gets the okay from cardiology she can always call the office and we can send her additional medicines. 09/13/2022 the patient is here for pulmonary follow-up visit. The patient has been doing well. She has been using the Symbicort inhaler. However, causing her increased coughing irritation or throat and also difficulty sleeping. Therefore she cut it down to once a day. Still though still having some issues with that. Her breathing is overall better. She is able to clear her lungs fairly well with the inhaler. Denies any significant chest congestion. She still has episodic sensations like she needs to take a deep breath in but usually transient. We did review her last CT scan of the chest that she had in July 2022 demonstrating both noncalcified and calcified pulmonary nodules. All subcentimeter in size. The patient also has some evidence of apical scarring which is minimal and evidence of bronchitis. It was noted that her aortic valve is calcified. Indeed she does have moderate aortic stenosis based on echocardiogram. Ultimately patient is doing well. There is family history of lung cancer in the family so therefore the nodules concern her. Will plan to follow-up in 1 more year to make sure there is no progression of the nodules. If they continue to be stable after couple years we can just follow him as needed. 09/12/2023 the patient is here for a pulmonary follow-up visit. She has been recovering after having the flu. There was about 6-8 weeks ago. The patient recovered but then started developing a productive cough with yellowish-green phlegm. Vsvf-hm-avamipog severity. She did use Mucinex at times with some relief. Then she stopped. Does have some increased shortness of breath as well. But otherwise better from the significant flu-like symptoms. She did have a CT scan of the chest which I personally reviewed with her. Appears that her pulmonary nodules have been stable. Although now she has areas of ground- glass opacity in the right upper lobe area. This most likely related to her recent infectious process. Will go ahead and treat her for a postviral bacterial infection. Specially with Staph aureus. Will go most likely require to repeat the CT scan in 4-6 months. In the meantime she has been having severe headaches. She also has episodes of waking up short of breath. She does have snoring. The patient has not had sleep study. At this point her [place] score is elevated 10/24. Will request a sleep study at this time. 12/16/2023 the patient is here for a pulmonary follow-up visit. Overall she is doing okay from a respiratory status. She is complaining of a persistent headache. She is also having neck pain and also left shoulder discomfort. She is having hard time with certain movement. Appears to be musculoskeletal. She is currently getting physical therapy. Will go ahead and request a chest x-ray for her. She will likely need additional imaging studies possibly an MRI in view of the significant limitation says she has right now. The patient also underwent a sleep study since she has been having headaches. She also has some daytime drowsiness with an [place] score of 8/24. Her AHI is only 4. Therefore likely has a little bit of sleep apnea but only minimal. The patient primarily had apneic episodes and hypopnea episodes when she was supine. Therefore she can go ahead and lay on her right side. She can not lay on the left due to her significant shoulder discomfort however. She can try positional therapy. In addition to that appears to have a component of postnasal drip and sinusitis. Will be reasonable to use nasal sprays for these a month and see there is any improvement in the sinus congestion. She can also could try decongestant th erapy. From a pulmonary standpoint the patient did have a CT scan of the chest back in 09/15/2023 demonstrating multiple pulmonary nodules interstitial changes. Will go ahead and repeat her CT scan in August or 08/15/2024. Will follow-up after that. If she has any issues prior to that she will call for an earlier assessment. 06/18/2024 the patient is here for a pulmonary follow-up visit. Overall the patient has been doing better now. She did develop RSV sometime beginning of April and subsequently after that developed norovirus. She is not recuperating from them. Pulmonary cervantes she had to use her inhaler more often during the episode of RSV and she subsequently has been feeling better and therefore has not required it. The patient did have a CT scan back in 09/15/2023 demonstrating numerous pulmonary nodules and also areas of ground-glass opacities. Will go ahead and request a repeat CT scan around the same time to address those findings. In the meantime she is having significant left shoulder pain. She did have an MRI she has been followed up closely by Orthopedic surgery. [place] that she needs to have orthopedic surgery. She is scheduled sometime in June. From a pulmonary standpoint the patient is doing very well and she is able to proceed with anesthesia and surgery at this time. Otherwise patient follow-up in 6-8 months. If she has any issues prior to that she will call for an earlier assessment. [facility] Medical History Headache SERGIO (obstructive sleep apnea) Bronchitis Pulmonary nodules Hydroureter Acid reflux Elevated fasting blood sugar Degenerative disc disease Arthritis Thyroid disease Irritable bowel syndrome (IBS) GERD (gastroesophageal reflux disease) Depression Lab test negative for COVID-19 virus History of cardiac murmur History of palpitations Surgical History History of back surgery Hx of cholecystectomy H/O excision of ganglion cyst History of esophagogastroduodenoscopy (EGD) Hx of tubal ligation H/O colonoscopy Family History Father Asthma Mother Arthritis Medical history non-contributory Brother Colon cancer Brother No problems noted. Brother No problems noted. Sister No problems noted. Sister No problems noted. Sister No problems noted. Son No problems noted. Son No problems noted. Daughter No problems noted. Social History Household Members: None Household Members Other:: alone Housing: House Alcohol intake: never Patient Tobacco Use Status: Never used Tobacco e-Cigarette/Vaping Use: Never Used Second Hand Smoke Exposure: No service: No Current occupational status: disabled Current occupational exposures/hazards: No Cognitive needs: No Hearing needs: No Vision needs: No Review of Systems Const Denies chills, Denies fatigue, Denies fever(s) and Denies weakness ENT Denies dizziness and Reports neck pain Card Denies chest pain, Denies lightheadedness, Denies dyspnea and Denies other (Palpitations) Resp Reports cough, Denies dyspnea, Denies wheezing and Denies other ( shortness of breath) Musc Reports as per HPI, Reports myalgias, Reports limited range of motion, Reports neck pain and Denies tingling Neuro Denies dizziness, Denies tingling, Denies paresthesias and Denies weakness Psych Denies anxiety and Denies depression Endo Denies fatigue Aller/Immun Denies wheezing Physical Exam Vital Signs: Last Vital Signs Pulse 76 02/21/25 09:49 BP 132/70 06/18/24 09:49 Pulse Ox 98 06/18/24 09:49 Oxygen Delivery Method Room Air 06/18/24 09:49 BMI result Body Mass Index 30.7 Const General: cooperative and comfortable Orientation/consciousness: patient oriented x3 HEENT Head: Yes normal to inspection, Yes normocephalic and Yes atraumatic Ears: hearing grossly normal bilaterally Eyes General: appearance normal, both eyes and all related structures Neck Neck: Yes normal visual inspection and Yes trachea midline Chest Chest palpation & inspection: normal inspection of the chest Resp Effort & Inspection: normal respiratory effort and able to speak in complete sentences Auscultation: clear to auscultation bilaterally Cardio Rate: regular rate Rhythm: regular rhythm Heart sounds: S1 normal heart sound present and S2 normal heart sound present GI Palpation (GI): Soft to palpation Skin General skin exam: no rashes or lesions noted Neuro General: patient oriented x3 Extrem General: Yes no clubbing, cyanosis or edema Psych Appearance: grossly normal and well kempt Mental Status: mental status grossly normal Speech and movement: Normal speech and movement present and Clear speech present Affect: normal affect Attitude: cooperative Thought process: Normal thought process present Thought content: Normal thought content present Insight: Good insight present (Psych) Judgement: Good judgement present (Psych) Assessment & Plan Assessment & Plan (1) Left shoulder pain: Code(s): M25.512 - Pain in left shoulder Category: Medical Qualifiers: Chronicity: unspecified Qualified Code(s): M25.512 - Pain in left shoulder (2) Pulmonary nodules: Code(s): R91.8 - Other nonspecific abnormal finding of lung field Category: Medical (3) Pneumonitis: Code(s): J98.4 - Other disorders of lung Category: Medical (4) Pre-op chest exam: Code(s): Z01.811 - Encounter for preprocedural respiratory examination Category: Medical Plan Able to proceed with anesthesia and orthopedic surgery from a pulmonary stand point. Low risk patient. Dymista repeat CT chest 07/2024 conitnue symbicort F/U Summer 2024 Orders: Orders CT chest wo IV con 3 Months J98.4 - Other disorders of lung, R91.8 - Other nonspecific abnormal finding of lung field Coding Level of Care Code Est Pt Level 4 (75525) Diagnoses Left shoulder pain, unspecified chronicity M25.512 Chronicity: unspecified Pulmonary nodules R91.8 Pneumonitis J98.4 Pre-op chest exam Z01.811 Time Spent (min) 16
[2024-06-18 09:49] VITALS: BP 132/70; PULSE 76; O2SAT 98; BMI 30.7
== END 2024-06-18 10:17 | disposition home or self-care (01) ==
PROVIDERS: PCP Family Medicine; Visit Provider Hospitalist
DX: M25.512 Pain in left shoulder (principal); R91.8 Other nonspecific abnormal finding of lung field; J98.4 Other disorders of lung; Z01.811 Encounter for preprocedural respiratory examination
CPT/HCPCS: 99214

== ENCOUNTER → 2024-06-18 09:45 | Outpatient (BNVA) | payer OTHER, SELFPAY | PROVIDERS: PCP Family Medicine; Visit Provider Hospitalist | DX: Z01.811 Encounter for preprocedural respiratory examination (principal); M25.512 Pain in left shoulder; R91.8 Other nonspecific abnormal finding of lung field; J98.4 Other disorders of lung | CPT/HCPCS: 99212 ==

== ENCOUNTER → 2024-06-23 12:59 | Outpatient (REF) | payer OTHER, SELFPAY | LOC: HO.CARD 12:59 | PROVIDERS: PCP Family Medicine; Visit Provider Internal Medicine Cardiovascular Disease | DX: I35.0 Nonrheumatic aortic (valve) stenosis (principal) | CPT/HCPCS: 93306 ==

== ENCOUNTER → 2024-06-23 13:04 | Outpatient (BNV) | payer OTHER, SELFPAY | PROVIDERS: PCP Family Medicine; Visit Provider Internal Medicine Cardiovascular Disease | DX: I35.2 Nonrheumatic aortic (valve) stenosis with insufficiency (principal) | CPT/HCPCS: 93306 ==

== ENCOUNTER → 2024-07-05 10:29 | Outpatient (REF) | payer OTHER, SELFPAY ==
--- NOTE | 2024-07-05 10:32 | CA_ITS ---
Acquisition Time: 2024-07-05 10:57:56 Total Exercise Time: 00:01:54 Test Indications: CP SEVERE AORTIC STENOSIS Medications: SEE H&P Protocol: RAFITA Max HR: 139 BPM 89% of Pred: 156 BPM Max BP: 140/76 mmHG Max Work Load: 4.4 METS Exercise stress test with exercise 1 min 54 sec of Rafita protocol, achieving 89% MPHR, with request to stop due to fatigue and shortness of breath stating it feels like I am running , no chest discomfort, without arrythmia, with normotensive response to exercise, with EKG changes meeting criteria for ischemia: horizontal to upsloping ST depressions inferiorly and V5-V6 which resolves by 3 min recovery. In recovery her symptoms resolved with rest. Test reviewed with Dr Chong. Referred By: Jesse Hudson Electronically Signed By: TAD BUNDY
== END ==
LOC: HO.CARD 10:29
PROVIDERS: PCP Family Medicine; Visit Provider Internal Medicine Cardiovascular Disease
DX: I35.0 Nonrheumatic aortic (valve) stenosis (principal)
CPT/HCPCS: 93017

== ENCOUNTER → 2024-07-05 10:32 | Outpatient (BNV) | payer OTHER, SELFPAY | PROVIDERS: PCP Family Medicine; Visit Provider Nurse Practitioner Family | DX: R06.02 Shortness of breath (principal); I35.0 Nonrheumatic aortic (valve) stenosis | CPT/HCPCS: 93016; 93018 ==

== ENCOUNTER 2024-07-08 11:26 | Outpatient (REF) | payer OTHER, SELFPAY ==
[2024-07-08 12:52] LABS: Hematocrit 36.9 % (37.0-47.0); Hemoglobin 11.8 g/dl (12.0-16.0); Mean Corpuscular Volume 90.7 fL (80.0-98.0); Mean Platelet Volume 9.6 fL (9.4-12.3); Platelet Count 231 X10*3/uL (160-400); Red Blood Count 4.07 X10*6/uL (4.20-5.50); Red Cell Distribution Width 13.4 % (11.0-16.0); White Blood Count 6.5 X10*3/uL (4.8-10.8)
[2024-07-08 12:59] LABS: Prothrombin Time 11.3 SEC (10.9-12.4)
[2024-07-08 13:18] LABS: Anion Gap 11 (12-20); Blood Urea Nitrogen 13 mg/dL (9-16); Calcium 9.2 mg/dL (8.4-10.2); Carbon Dioxide 27 mmol/L (22-29); Chloride 107 mmol/L (96-108); Estimated Glomerular Filt Rate > 60; Glucose Random 91 mg/dL (60-115); Potassium 5.1 mmol/L (3.3-5.1); Sodium 140 mmol/L (135-145)
[2024-07-08 13:24] LABS: B Type Natriuretic Peptide 72 pg/mL (<100)
== END 2024-07-08 11:27 | disposition home or self-care (01) ==
LOC: HO.LAB 11:26
PROVIDERS: PCP Family Medicine; Visit Provider Internal Medicine Cardiovascular Disease
DX: I35.0 Nonrheumatic aortic (valve) stenosis (principal)
CPT/HCPCS: 36415; 80048; 83880; 85027; 85610

== ENCOUNTER → 2024-07-15 23:59 | Outpatient (BNV) | payer OTHER, SELFPAY | PROVIDERS: PCP Family Medicine; Visit Provider Internal Medicine Cardiovascular Disease | DX: I35.0 Nonrheumatic aortic (valve) stenosis (principal); R93.1 Abnormal findings on diagnostic imaging of heart and coronary circulation; I50.30 Unspecified diastolic (congestive) heart failure | CPT/HCPCS: 93460 ==

== ENCOUNTER 2024-07-26 14:17 | Outpatient (AMB) | payer MEDICAID, SELFPAY ==
--- NOTE | 2024-07-26 14:19 | MHC.OFFVIS ---
Vital Signs 07/26/24 14:20 Height 5 ft 2 in Weight 178 lb 2.136 oz BMI 32.6 BP 124/72 Blood Pressure Location Lt brachial Position Sitting Pulse 83 Pulse Source Pulse Oximeter Intake Visit Reasons: Follow up post cardiac cath Ghost Writer Required: No Allergies nabumetone [From Relafen] Allergy (Intermediate, Verified 07/26/24 14:25) ITCHING shellfish derived Allergy (Intermediate, Verified 07/26/24 14:25) Swelling tramadol [Tramadol] Allergy (Mild, Verified 07/26/24 14:25) ITCHING bee sting Adverse Reaction (Mild, Uncoded 07/26/24 14:25) Redness of Skin Medication List - Last Reconciled 07/26/24 by SHIRA Mejia azelastine-fluticasone 137-50 mcg/spray (Dymista) 1 spray intranasal BID PRN budesonide-formoterol 160-4.5 mcg/actuation (Symbicort) 2 puffs inhalation BID PRN buspirone 10 mg PO BID PRN cholecalciferol (vitamin D3) (Vitamin D3) 25 mcg PO DAILY 30 days coenzyme Q10 200 mg PO BID fexofenadine 180 mg PO DAILY PRN ibuprofen 400 mg PO Q8H PRN 30 days levothyroxine 150 mcg PO DAILY 90 days lorazepam 1 mg PO DAILY PRN magnesium citrate,mag oxide 750 mg PO DAILY metoprolol succinate ER 25 mg PO BID oxycodone 10 mg PO Q12H 30 days pantoprazole 20 mg PO QAM PRN paroxetine HCl 10 mg PO BEDTIME PRN svflbbei-bvpa-invnf-oreg-capry 100 mg-150 mg- 50 mg-150 mg 1 cap PO DAILY vitamin B complex 1 cap PO DAILY zolpidem 10 mg PO BEDTIME HPI HPI Follow up post cardiac cath: Details: Margarette is a 63-year-old female with past medical history of hypertension, elevated fasting blood sugar, sleep apnea, aortic stenosis which is now severe who presents for follow-up after recent cardiac catheterization. Today she reports she does have some shortness of breath when she over exerts. She is able to do light housework and tolerate it well. She does not have chest discomfort at rest or with activity. She has not had any lightheadedness, presyncope, syncope. No PND, orthopnea or edema. Right radial catheterization site feels good. She tells me she is scheduled for a carotid ultrasound and a CAT scan at [facility] in the next week. [facility] Medical History Headache SERGIO (obstructive sleep apnea) Bronchitis Pulmonary nodules Hydroureter Acid reflux Elevated fasting blood sugar Degenerative disc disease Arthritis Thyroid disease Irritable bowel syndrome (IBS) GERD (gastroesophageal reflux disease) Depression Lab test negative for COVID-19 virus History of cardiac murmur History of palpitations Surgical History History of cardiac cath History of back surgery Hx of cholecystectomy H/O excision of ganglion cyst History of esophagogastroduodenoscopy (EGD) Hx of tubal ligation H/O colonoscopy Family History Father Asthma Mother Arthritis Medical history non-contributory Brother Colon cancer Brother No problems noted. Brother No problems noted. Sister No problems noted. Sister No problems noted. Sister No problems noted. Son No problems noted. Son No problems noted. Daughter No problems noted. Social History Household Members: None Household Members Other:: alone Housing: House Are you a primary healthcare project manager to a significant other at home: No Do you presently have visiting nurse or other home services: No Alcohol intake: never Patient Tobacco Use Status: Never used Tobacco e-Cigarette/Vaping Use: Never Used Second Hand Smoke Exposure: No service: No Current occupational status: disabled Current occupational exposures/hazards: No Cognitive needs: No Hearing needs: No Vision needs: No Review of Systems Const All systems reviewed & are unremarkable except as noted in HPI and below ENT Denies dizziness Card Denies chest pain, Denies chest pain at rest, Denies chest pain with activity, Denies rapid heart rate, Denies pedal edema, Denies edema, Denies leg edema, Denies lightheadedness, Denies palpitations, Denies dyspnea, Reports dyspnea on exertion and Denies orthopnea Resp Denies cough, Denies dyspnea and Reports dyspnea on exertion GI Denies hematochezia and Denies change in stool character Musc Denies abnormal gait, Denies limited range of motion, Denies muscle cramps, Denies muscle weakness, Denies numbness, Denies radiating pain into limb, Denies stiffness and Denies tingling Neuro Denies abnormal gait, Denies dizziness, Denies numbness and Denies tingling Endo Denies palpitations Physical Exam Vital Signs: Last Vital Signs Pulse 83 07/26/24 14:20 BP 124/72 07/26/24 14:20 BMI result Body Mass Index 32.6 Const General: cooperative, healthy appearing, comfortable and no acute distress Orientation/consciousness: patient oriented x3 Neck Neck: Yes normal visual inspection and Yes no JVD Resp Effort & Inspection: normal respiratory effort Auscultation: clear to auscultation bilaterally, no rales, no rhonchi and no wheezes Cardio Rate: regular rate Rhythm: regular rhythm Heart sounds: Murmur heart sound present (3/6 systolic murmur left sternal border) and no rubs Neuro General: patient oriented x3 Extrem General: Yes normal to inspection, No no pedal edema and No calf tenderness Psych Appearance: grossly normal Mental Status: mental status grossly normal Speech and movement: Normal speech and movement present Assessment & Plan Assessment & Plan (1) Severe aortic stenosis: Code(s): I35.0 - Nonrheumatic aortic (valve) stenosis Category: Medical Plan: History of aortic stenosis, previously known to be moderate to severe. She did have an exercise stress test recently with shortness of breath and fatigue at 1 minute 54 seconds of exercise and needed to stop. She underwent cardiac catheterization which showed no significant coronary artery disease, severe aortic stenosis with aortic valve area 0.88 centimeter sq, mean gradient 39 mm Hg. She did meet with the cardiac surgeon while at [facility]. They discussed options for surgical aortic valve replacement versus TAVR. A decision has not been finalized as far as which procedure she will have. She is scheduled to [place] her carotid ultrasound [place] [facility] [place] then will meet with the surgeon again. Cardinal signs of severe reviewed with her. Instructed on light physical activity. Emergency care if ever needed for symptoms. Cardiology follow-up 3 months, sooner if needed. Anticipate that to be post aortic valve replacement.. (2) S/P cardiac cath: Comment: 07/15/2024 shows left main, lad, left circumflex normal, RCA mild ostial disease, GENIA 0.88, mean gradiant 39mmhg, severe Code(s): Z98.890 - Other specified postprocedural states Category: Surgical Plan: Right radial catheterization site well healed Plan Time spent on chart review, documentation interview and assessment Coding Level of Care Code Est Pt Level 4 (39438) Complex EM visit Add On G2211 Diagnoses Severe aortic stenosis I35.0 S/P cardiac cath Z98.890 Time Spent (min) 30
[2024-07-26 14:20] VITALS: BP 124/72; PULSE 83; BMI 32.6
== END 2024-07-26 15:05 | disposition home or self-care (01) ==
PROVIDERS: PCP Family Medicine; Visit Provider Nurse Practitioner Family
DX: I35.0 Nonrheumatic aortic (valve) stenosis (principal); Z98.890 Other specified postprocedural states
CPT/HCPCS: 99214

== ENCOUNTER → 2024-07-26 14:17 | Outpatient (BNVA) | payer OTHER, SELFPAY | PROVIDERS: PCP Family Medicine; Visit Provider Nurse Practitioner Family | DX: I35.0 Nonrheumatic aortic (valve) stenosis (principal); Z98.890 Other specified postprocedural states | CPT/HCPCS: 99212 ==

== ENCOUNTER 2024-07-29 07:28 | Outpatient (REF) | payer OTHER, SELFPAY ==
[2024-07-29 07:48] LABS: MANUAL DIFF FLAG NO
[2024-07-29 07:51] LABS: Basophils Absolute Auto 0.1 X10*3/uL (0.0-0.2); Basophils Percent Auto 0.7 % (0-2); Eosinophils Absolute Auto 0.9 X10*3/uL (0.0-0.4); Eosinophils Percent Auto 9.7 % (0-4); Hematocrit 34.3 % (37.0-47.0); Hemoglobin 11.7 g/dl (12.0-16.0); Imm Gran Abs Auto 0.02 X10*3/uL (0.00-0.03); Imm Gran Pct Auto 0.2 % (0.0-0.4); Lymphocytes Absolute Auto 3.8 X10*3/uL (1.2-4.9); Lymphocytes Percent Auto 41.8 % (20-40); Mean Corpuscular HGB Conc 34.1 g/dl (31.0-35.0); Mean Corpuscular Hemoglobin 29.8 pg (27.0-33.0); Mean Corpuscular Volume 87.3 fL (80.0-98.0); Mean Platelet Volume 8.9 fL (9.4-12.3); Monocytes Absolute Auto 0.6 X10*3/uL (0.1-1.2); Monocytes Percent Auto 6.3 % (2-11); Neutrophils Absolute Auto 3.8 x10*3/uL (2.0-8.3); Neutrophils Percent Auto 41.3 % (45-73); Platelet Count 216 X10*3/uL (160-400); Red Blood Count 3.93 X10*6/uL (4.20-5.50); Red Cell Distribution Width 13.4 % (11.0-16.0); White Blood Count 9.2 X10*3/uL (4.8-10.8)
[2024-07-29 08:29] LABS: Alanine Aminotransferase 15 U/L (0-31); Albumin Level 3.9 g/dL (3.5-5.0); Alkaline Phosphatase 66 U/L (39-117); Anion Gap 12 (12-20); Aspartate Amino Transferase 28 U/L (5-31); Bilirubin Total 0.4 mg/dL (0.0-1.0); Blood Urea Nitrogen 13 mg/dL (9-16); Calcium 9.1 mg/dL (8.4-10.2); Carbon Dioxide 25 mmol/L (22-29); Chloride 109 mmol/L (96-108); Cholesterol 202 mg/dL (<200); Estimated Glomerular Filt Rate > 60; Glucose Fasting 97 mg/dL (60-99); Glucose Random 95 mg/dL (60-115); HDL Cholesterol 45 mg/dL (>40); LDL Cholesterol Calculated 121 mg/dL (<100); Potassium 4.7 mmol/L (3.3-5.1); Sodium 141 mmol/L (135-145); Total Protein 7.1 g/dL (6.5-8.0); Triglycerides 183 mg/dL (<150)
[2024-07-29 08:29] LABS: Appearance Urine Clear; Color Urine Yellow; Glucose Urine UA Negative (Negative); Leukocyte Esterase Urine Negative (Negative); Nitrite Urine Negative (Negative); Specific Gravity - Urine 1.015 (1.005-1.025); Urine Blood Negative (Negative); Urine Ketones Negative (Negative); Urine Protein Negative (Neg-Trace)
[2024-07-29 08:54] LABS: Free T4 (Free Thyroxine) 0.93 ng/dL (0.71-1.85); Thyroid Stimulating Hormone 4.41 uIU/mL (0.32-4.0)
[2024-07-29 09:04] LABS: Microalbumin Urine < 5.0 mg/L
[2024-07-30 23:13] LABS: Triiodothyronine T3 Total 92 ng/dL (76-181)
== END 2024-07-29 07:29 | disposition home or self-care (01) ==
LOC: HO.LAB 07:28
PROVIDERS: PCP Family Medicine; Visit Provider Family Medicine
DX: Z00.00 Encounter for general adult medical examination without abnormal findings (principal); I10 Essential (primary) hypertension; E03.9 Hypothyroidism, unspecified; D64.9 Anemia, unspecified; I35.0 Nonrheumatic aortic (valve) stenosis; E78.00 Pure hypercholesterolemia, unspecified; R26.81 Unsteadiness on feet
CPT/HCPCS: 36415; 80048; 80053; 80061; 81003; 82043; 82570; 84439; 84443; 84480; 85025; 99212

== ENCOUNTER 2024-07-29 08:52 | Outpatient (AMB) | payer OTHER, SELFPAY ==
--- NOTE | 2024-07-29 09:10 | MHC.PC.OV ---
Vital Signs 07/29/24 09:15 Height 5 ft 2 in Weight 179 lb 2 oz BMI 32.8 BP 130/78 Blood Pressure Location Lt brachial Position Sitting Respiration 14 Pulse 74 Pulse Source Pulse Oximeter Temp 98.8 F Temp Source Oral Pulse Oximetry (%) 96 Oxygen Delivery Method Room Air Intake Visit Reasons: Extended exam with f/u labs and health maint Intake Note: Patient is scheduled for extended exam Animal Rides Manager Required: No Allergies iodine Allergy (Severe, Verified 07/29/24 09:13) Unknown nabumetone [From Relafen] Allergy (Intermediate, Verified 07/29/24 09:13) ITCHING shellfish derived Allergy (Intermediate, Verified 07/29/24 09:13) Swelling tramadol [Tramadol] Allergy (Mild, Verified 07/29/24 09:13) ITCHING bee sting Adverse Reaction (Mild, Uncoded 07/26/24 14:25) Redness of Skin Medication List - Last Reconciled 07/29/24 by Jakob Orellana MD azelastine-fluticasone 137-50 mcg/spray (Dymista) 1 spray intranasal BID PRN budesonide-formoterol 160-4.5 mcg/actuation (Symbicort) 2 puffs inhalation BID PRN buspirone 10 mg PO BID PRN cholecalciferol (vitamin D3) (Vitamin D3) 25 mcg PO DAILY 30 days coenzyme Q10 200 mg PO BID fexofenadine 180 mg PO DAILY PRN ibuprofen 400 mg PO Q8H PRN 30 days levothyroxine 150 mcg PO DAILY 90 days lorazepam 1 mg PO DAILY PRN magnesium citrate,mag oxide 750 mg PO DAILY metoprolol succinate ER 25 mg PO BID oxycodone 10 mg PO Q12H 30 days pantoprazole 20 mg PO QAM PRN paroxetine HCl 10 mg PO BEDTIME PRN pfiztobv-gzkh-ooptl-oreg-capry 100 mg-150 mg- 50 mg-150 mg 1 cap PO DAILY vitamin B complex 1 cap PO DAILY zolpidem 10 mg PO BEDTIME Tobacco use date assessed: 10/07/23 Dental Screening Dental Screen Date: 10/07/23 HPI Extended exam with f/u labs and health maint HPI Details 63 y/o female presents for an extended exam with f/u labs and health maintenance. Labs drawn 07/29/24. Reviewed labs with pt. Ongoing mild anemia. Triglycerides 183. TC 202. LDL 121. HDL 45. TSH 4.41 uIU/mL. She is on levothyroxine 150mcg daily. [facility] Medical History Headache SERGIO (obstructive sleep apnea) Bronchitis Pulmonary nodules Hydroureter Acid reflux Elevated fasting blood sugar Degenerative disc disease Arthritis Thyroid disease Irritable bowel syndrome (IBS) GERD (gastroesophageal reflux disease) Depression Lab test negative for COVID-19 virus History of cardiac murmur History of palpitations Surgical History History of cardiac cath History of back surgery Hx of cholecystectomy H/O excision of ganglion cyst History of esophagogastroduodenoscopy (EGD) Hx of tubal ligation H/O colonoscopy Family History Father Asthma Mother Arthritis Medical history non-contributory Brother Colon cancer Brother No problems noted. Brother No problems noted. Sister No problems noted. Sister No problems noted. Sister No problems noted. Son No problems noted. Son No problems noted. Daughter No problems noted. Social History Household Members: None Household Members Other:: alone Housing: House Are you a primary palliative care specialist to a significant other at home: No Do you presently have visiting nurse or other home services: No Alcohol intake: never Patient Tobacco Use Status: Never used Tobacco e-Cigarette/Vaping Use: Never Used Second Hand Smoke Exposure: No service: No Current occupational status: disabled Current occupational exposures/hazards: No Cognitive needs: No Hearing needs: No Vision needs: No Questionnaire PHQ-9 Over the last 2 weeks, how often have you been bothered by any of the following problems? 1. Little interest or pleasure in doing things: more than half the days 2. Feeling down, depressed, or hopeless: more than half the days Source: Developed by Drs. Brian Abreu, Daina Ahmadi, Ralph Redmond and colleagues, with an educational brian from [employer] Thrive Questionnaire Date Thrive assessed: 05/25/24 I am a: Patient What is your living situation today?: I have a steady place to live Within the past 12 months, did the food you bought not last and you didn't have the money to get more?: Never true Within the past 12 months, did you worry whether your food would run out before you got money to buy more?: Never true Do you have trouble paying for medicines?: No Do you have trouble getting transportation to medical appointments?: No Do you have trouble paying your heating and electricity bill?: No Do you have trouble taking care of your child, family member or friend?: No Do you have trouble with day-to-day activities such as bathing, preparing meals, shopping, managing finances, etc.?: Yes Are you currently unemployed and looking for a job?: I choose not to answer this question Are you interested in more education?: No Please select the resources that you would like help with: None Currently or been in a relationship where the following occur: No concerns reported THRIVE Score: 0 YUMIKO-7 AMB Questionnaire YUMIKO-7 Date YUMIKO - 7 assessed: 04/08/23 Source: Developed by Drs. Brian Abreu, Daina Ahmadi, Ralph Redmond and colleagues, with an educational brian from [employer] Review of Systems Const Denies chills, Denies fatigue, Denies fever(s), Denies headache(s) and Denies weakness Eyes Denies change in vision ENT Denies dizziness, Denies headache(s), Denies hearing loss, Denies nasal congestion, Denies sinus pain, Denies sinus pressure and Denies sore throat Card Denies chest pain, Denies lightheadedness, Denies dyspnea and Denies other (palpitations) Resp Denies cough, Denies dyspnea and Denies wheezing GI Denies abdominal pain, Denies melena, Denies hematochezia, Denies change in bowel habits, Denies dyspepsia and Denies nausea Denies hematuria and Denies dysuria Musc Denies abnormal gait, Denies myalgias, Denies arthralgias, Denies numbness and Denies tingling Skin/Breast Denies rash, Denies unusual bruising and Denies wounds Neuro Denies abnormal gait, Denies dizziness, Denies headache(s), Denies memory loss, Denies numbness, Denies Sensory deficit (Neuro), Denies tingling and Denies weakness Psych Denies anxiety, Denies depression and Denies memory loss Endo Denies cold intolerance, Denies fatigue, Denies heat intolerance, Denies polydipsia and Denies polyuria Nomi/Lymph Denies easy bleeding and Denies easy bruising Aller/Immun Denies wheezing Physical exam (Primary Care) Vital Signs: Last Vital Signs Temp 98.8 F 07/29/24 09:15 Pulse 74 07/29/24 09:15 Resp 14 07/29/24 09:15 BP 130/78 07/29/24 09:15 Pulse Ox 96 07/29/24 09:15 Oxygen Delivery Method Room Air 07/29/24 09:15 BMI result Body Mass Index 32.8 Tobacco/Smoking Status: Tobacco use Status Tobacco use date assessed 10/07/23 07/29/24 09:20 Patient Tobacco Use Status Never used Tobacco 07/29/24 09:20 e-Cigarette/Vaping Use Never Used 07/29/24 09:20 Thrive Assessment: Date of Thrive Assessment Date Thrive assessed 05/25/24 07/29/24 09:20 Currently or been in a relationship where the following occur: No concerns reported Const General: no acute distress, well developed, alert and awake Nutritional Appearance: well nourished Orientation/consciousness: patient oriented x3 HENMT Head: Yes normocephalic and Yes atraumatic Ears: hearing grossly normal bilaterally and TM's normal bilaterally General nose exam: Normal external nose present and Normal nares present Mouth: Normal oral and palatal mucosa present and moist mucous membranes Teeth and gingiva: dentition normal Throat: Yes posterior oropharynx normal Eyes General: appearance normal, both eyes and all related structures Pupils: Equal, round and reactive pupils present and Pupil accommodation reflex normal EOM: EOMs intact bilaterally Neck Neck: Yes normal visual inspection, Yes no lymphadenopathy and Yes trachea midline Thyroid: Thyroid normal Carotids: no bruits Lymphatic: no lymphadenopathy noted Chest Chest palpation & inspection: normal inspection of the chest Resp Effort & Inspection: normal respiratory effort Auscultation: clear to auscultation bilaterally Cardio Rate: regular rate Rhythm: regular rhythm Heart sounds: S1 normal heart sound present, S2 normal heart sound present, no gallops, no murmurs and no rubs Bruits: no abdominal aortic bruits and no carotid bruits GI Palpation (GI): No Abdominal aortic bruit present, Soft to palpation, nontender, No hepatosplenomegaly present and No Rebound tenderness present Auscultation: normal bowel sounds General: Yes no CVA tenderness Back/Spine/Pelvis Back: no CVA tenderness Cervical Spine: cervical ROM normal and No Cervical spine tenderness Thoracic/Lumbar Spine: thoraco-lumbar ROM normal, No pain with thoraco-lumbar ROM, No thoracic spinal tenderness and No lumbar spinal tenderness Skin Lesions: no lesions Rashes: no rashes Trauma: no lacerations or abrasions Wounds: no wounds Nails: normal Neuro General: patient oriented x3 Cranial nerves: Yes Equal, round and reactive pupils present Cognition (Neuro): normal cognition Gait exam (Neuro): gait abnormal Motor exam (neuro): 5/5 motor strength present throughout Sensory Exam: No Sensory deficit (Neuro) Deep tendon reflexes (DTR's): Right patellar reflex intensity grade: 2+ and Left patellar reflex intensity grade: 2+ Extrem General: Yes normal to inspection and No edema Psych Appearance: grossly normal Affect: normal affect Attitude: cooperative Thought process: Normal thought process present Coding Level of Care Code Est Pt Level 4 (60450) Diagnoses Primary hypertension I10 Hypertension type: primary hypertension Hypothyroidism E03.9 Mild anemia D64.9 Severe aortic stenosis I35.0 Breast cancer screening by mammogram Z12.31 Elevated LDL cholesterol level E78.00 Screening for cervical cancer Z12.4 Screening for colon cancer Z12.11 Unsteady gait R26.81 Adult general medical exam Z00.00 Assessment & Plan Assessment & Plan (1) Hypertension: Code(s): I10 - Essential (primary) hypertension Category: Medical Qualifiers: Hypertension type: primary hypertension Qualified Code(s): I10 - Essential (primary) hypertension Plan: Blood?pressure?is?fairly?well?controlled.??Goal?is?less?than?130/80 Continue?current?medication?regimen (2) Hypothyroidism: Code(s): E03.9 - Hypothyroidism, unspecified Category: Medical Plan: TSH?was?mildly?elevated. Will?recheck?in?about?6?weeks.??No?change?to?her?medications?today. (3) Mild anemia: Code(s): D64.9 - Anemia, unspecified Category: Medical Plan: Patient?has?a?mild?anemia. Will?recheck?in?about?6?weeks (4) Severe aortic stenosis: Code(s): I35.0 - Nonrheumatic aortic (valve) stenosis Category: Medical Plan: Severe?stenosis?and?she?has?seen?Cardiology.??Plan?is?for?aortic?valve?replacement Follow-up?with?Cardiology?and?Cardiothoracic?surgeon?as?recommended (5) Breast cancer screening by mammogram: Code(s): Z12.31 - Encounter for screening mammogram for malignant neoplasm of breast Category: Medical Plan: Patient?has?not?had?a?mammogram?since?2020 Mammogram?is?ordered. (6) Elevated LDL cholesterol level: Code(s): E78.00 - Pure hypercholesterolemia, unspecified Category: Medical Plan: Mildly?elevated?LDL?cholesterol Encouraged?a?diet?lower?in?saturated?fats?and?cholesterol Encouraged?weight?loss (7) Screening for cervical cancer: Code(s): Z12.4 - Encounter for screening for malignant neoplasm of cervix Category: Medical Plan: Patient?has?not?had?Pap?smear?in?several?years. Will?refer?her?back?to?insurance administrative assistant We?discussed?that?she?may?not?need?any?additional?Pap?smears?and?can?discuss?with?her?provider. (8) Screening for colon cancer: Code(s): Z12.11 - Encounter for screening for malignant neoplasm of colon Category: Medical Plan: Patient?had?colonoscopy?in?2020?in?was?advised?to?follow-up?in?5?years;?2025 Up-to-date (9) Unsteady gait: Code(s): R26.81 - Unsteadiness on feet Category: Medical Plan: Some?left?lower?extremity?weakness. Partly?due?to?history?of?left?sciatica. Demonstrated?and?advised?exercises?at?home?with?ankle?weights?to?strengthen?her?leg. She?is?limited?in?how?much?exercise?she?can?do?until?she?has?her?aortic?valve?replacement. Subsequently,?we?discussed?we?will?refer?her?to?physical?therapy?and?she?is?still?having?weakness?and?unsteady?gait. Alternatively,?if?she?is?unable?to?improve?her weakness?and?gait, may?need?visiting?nurse?to?do?physical?therapy?at?home (10) Adult general medical exam: Code(s): Z00.00 - Encounter for general adult medical examination without abnormal findings Category: Medical Plan: 63-year-old?female?presents?for?an?extended?exam Encouraged?healthy?diet?with?active?lifestyle?and?exercise?as?tolerated Orders: Orders IRON PROFILE Today D64.9 - Anemia, unspecified Reticulocyte Count Today D64.9 - Anemia, unspecified Complete Blood Count Auto Diff 1 Day D64.9 - Anemia, unspecified, Z00.00 - Encounter for general adult medical examination without abnormal findings Free T4 (Free Thyroxine) Today E03.9 - Hypothyroidism, unspecified Comprehensive Met. Panel Today I10 - Essential (primary) hypertension MM tomosynthesis screening BI Today Z12.31 - Encounter for screening mammogram for malignant neoplasm of breast Ferritin Today D64.9 - Anemia, unspecified Triiodothyronine T3 Total 1 Day E03.9 - Hypothyroidism, unspecified Thyroid Stimulating Hormone Today E03.9 - Hypothyroidism, unspecified Referrals [facility] Referral Z12.4 - Encounter for screening for malignant neoplasm of cervix
[2024-07-29 09:15] VITALS: BP 130/78; PULSE 74; RESP 14; TEMP 37.1; O2SAT 96; BMI 32.8
== END 2024-07-29 09:51 | disposition home or self-care (01) ==
LOC: HO.HMCFM 08:53
PROVIDERS: PCP Family Medicine; Visit Provider Family Medicine
DX: I10 Essential (primary) hypertension (principal); E03.9 Hypothyroidism, unspecified; D64.9 Anemia, unspecified; I35.0 Nonrheumatic aortic (valve) stenosis; Z12.31 Encounter for screening mammogram for malignant neoplasm of breast; E78.00 Pure hypercholesterolemia, unspecified; Z12.4 Encounter for screening for malignant neoplasm of cervix; Z12.11 Encounter for screening for malignant neoplasm of colon; R26.81 Unsteadiness on feet; Z00.00 Encounter for general adult medical examination without abnormal findings

== ENCOUNTER 2024-09-08 11:06 | Outpatient (AMB) | payer OTHER, SELFPAY ==
[2024-09-08 11:12] VITALS: BP 126/70; PULSE 72; O2SAT 99; BMI 33.1
--- NOTE | 2024-09-08 11:12 | A.OFFVIS_ITS ---
Vital Signs 09/08/24 11:12 Height 5 ft 2 in Weight 180 lb 12.465 oz BMI 33.1 BP 126/70 Blood Pressure Location Lt brachial Position Sitting Pulse 72 Pulse Source Pulse Oximeter Pulse Oximetry (%) 99 Oxygen Delivery Method Room Air Intake Visit Reasons: Obstructive sleep apnea Allergies iodine Allergy (Severe, Verified 09/08/24 11:14) Unknown nabumetone [From Relafen] Allergy (Intermediate, Verified 09/08/24 11:14) ITCHING shellfish derived Allergy (Intermediate, Verified 09/08/24 11:14) Swelling tramadol [Tramadol] Allergy (Mild, Verified 09/08/24 11:14) ITCHING bee sting Adverse Reaction (Mild, Uncoded 07/26/24 14:25) Redness of Skin HPI Comments Details: The patient is a 63 year woman who was referred to Pulmonary for evaluation of an abnormal cardiac CT scan with numerous pulmonary nodules. apparently patient was in her usual state health until back in November 2021 which she developed COVID. After COVID she did develop worsening cough which is congested in nature with green phlegm. She had been evaluated by primary care and was given supportive care. Subsequently her symptoms worsen and she ended up getting a chest x-ray demonstrating evidence of bronchitis. She was given a course of antibiotics and prednisone. She has been feeling better since then. Still, still coughing up phlegm in the morning. In the meantime she has been evaluated for cardiac disease. She was referred to [facility] which she underwent a CT scan of the coronary arteries. This is a very limited view of the lungs. Although, I personally reviewed it and the patient had multiple pulmonary nodules largest 1 measuring 5 mm on the major fissure on the left. However, this is a very limited amount of lung parenchymal evaluation. And therefore the best way to further assess her pulmonary nodules would be to get a formal CT scan of the chest. We did talk about treating her bronchitis. However, she would like to hold off until she has her cardiac evaluation prior to starting any pulmonary medications. In the meantime I did recommend she can pickling grader some Mucinex to try to help with the expectorate the phlegm in her lungs. If her respiratory symptoms worsen and if she gets the okay from cardiology she can always call the office and we can send her additional medicines. 09/13/2022 the patient is here for pulmonary follow-up visit. The patient has been doing well. She has been using the Symbicort inhaler. However, causing her increased coughing irritation or throat and also difficulty sleeping. Therefore she cut it down to once a day. Still though still having some issues with that. Her breathing is overall better. She is able to clear her lungs fairly well with the inhaler. Denies any significant chest congestion. She still has episodic sensations like she needs to take a deep breath in but usually transient. We did review her last CT scan of the chest that she had in July 2022 demonstrating both noncalcified and calcified pulmonary nodules. All subcentimeter in size. The patient also has some evidence of apical scarring which is minimal and evidence of bronchitis. It was noted that her aortic valve is calcified. Indeed she does have moderate aortic stenosis based on echocardiogram. Ultimately patient is doing well. There is family history of lung cancer in the family so therefore the nodules concern her. Will plan to follow-up in 1 more year to make sure there is no progression of the nodules. If they continue to be stable after couple years we can just follow him as needed. 09/12/2023 the patient is here for a pulmonary follow-up visit. She has been recovering after having the flu. There was about 6-8 weeks ago. The patient recovered but then started developing a productive cough with yellowish-green phlegm. Vkiq-jv-wqrlkemr severity. She did use Mucinex at times with some relief. Then she stopped. Does have some increased shortness of breath as well. But otherwise better from the significant flu-like symptoms. She did have a CT scan of the chest which I personally reviewed with her. Appears that her pulmonary nodules have been stable. Although now she has areas of ground- glass opacity in the right upper lobe area. This most likely related to her recent infectious process. Will go ahead and treat her for a postviral bacterial infection. Specially with Staph aureus. Will go most likely require to repeat the CT scan in 4-6 months. In the meantime she has been having severe headaches. She also has episodes of waking up short of breath. She does have snoring. The patient has not had sleep study. At this point her Alpine score is elevated 10/24. Will request a sleep study at this time. 12/16/2023 the patient is here for a pulmonary follow-up visit. Overall she is doing okay from a respiratory status. She is complaining of a persistent headache. She is also having neck pain and also left shoulder discomfort. She is having hard time with certain movement. Appears to be musculoskeletal. She is currently getting physical therapy. Will go ahead and request a chest x-ray for her. She will likely need additional imaging studies possibly an MRI in view of the significant limitation says she has right now. The patient also underwent a sleep study since she has been having headaches. She also has some daytime drowsiness with an Alpine score of 8/24. Her AHI is only 4. Therefore likely has a little bit of sleep apnea but only minimal. The patient primarily had apneic episodes and hypopnea episodes when she was supine. Therefore she can go ahead and lay on her right side. She can not lay on the left due to her significant shoulder discomfort however. She can try positional therapy. In addition to that appears to have a component of postnasal drip and sinusitis. Will be reasonable to use nasal sprays for these a month and see there is any improvement in the sinus congestion. She can also could try decongestant therapy. From a pulmonary standpoint the patient did have a CT scan of the chest back in 09/15/2023 demonstrating multiple pulmonary nodules interstitial changes. Will go ahead and repeat her CT scan in August or 08/15/2024. Will follow-up after that. If she has any issues prior to that she will call for an earlier assessment. 06/18/2024 the patient is here for a pulmonary follow-up visit. Overall the patient has been doing better now. She did develop RSV sometime beginning of April and subsequently after that developed norovirus. She is not recupera ting from them. Pulmonary cervantes she had to use her inhaler more often during the episode of RSV and she subsequently has been feeling better and therefore has not required it. The patient did have a CT scan back in 09/15/2023 demonstrating numerous pulmonary nodules and also areas of ground-glass opacities. Will go ahead and request a repeat CT scan around the same time to address those findings. In the meantime she is having significant left shoulder pain. She did have an MRI she has been followed up closely by Orthopedic surgery. [place] that she needs to have orthopedic surgery. She is scheduled sometime in June. From a pulmonary standpoint the patient is doing very well and she is able to proceed with anesthesia and surgery at this time. Otherwise patient follow-up in 6-8 months. If she has any issues prior to that she will call for an earlier assessment. 09/08/2024 the patient is here for pulmonary follow-up visit. Overall the patient has been doing fairly well from a respiratory status. Her breathing is well and she does not have any respiratory limitations. She has not had to use any inhalers. We have been following some nodules. She did have a CT scan at [facility] of the chest to assess her cardiac in her valve. I did visualize myself and actually we were able to see full lung windows. Was very adequate and I do not see the ground-glass opacity in the longer. Therefore we can cancel the CAT scan here. Her other nodules are small subcentimeter in size and stable. Will plan to follow-up with a CAT scan in a year's time instead. For now though she is going to be talking to her balance recesser and a Cardiothoracic surgeon regarding her aortic valve with critical stenosis. She is contemplating open heart surgery for the valve replacement versus a trans vascular approach. She will be talking to the surgeon and the balance recesser and making a shared decision. Otherwise patient is doing well will follow-up sometime in the fall to assess her progress. [facility] Medical History Headache SERGIO (obstructive sleep apnea) Bronchitis Pulmonary nodules Hydroureter Acid reflux Elevated fasting blood sugar Degenerative disc disease Arthritis Thyroid disease Irritable bowel syndrome (IBS) GERD (gastroesophageal reflux disease) Depression Lab test negative for COVID-19 virus History of cardiac murmur History of palpitations Surgical History History of cardiac cath History of back surgery Hx of cholecystectomy H/O excision of ganglion cyst History of esophagogastroduodenoscopy (EGD) Hx of tubal ligation H/O colonoscopy Family History Father Asthma Mother Arthritis Medical history non-contributory Brother Colon cancer Brother No problems noted. Brother No problems noted. Sister No problems noted. Sister No problems noted. Sister No problems noted. Son No problems noted. Son No problems noted. Daughter No problems noted. Social History Household Members: None Household Members Other:: alone Housing: House Are you a primary career education teacher to a significant other at home: No Do you presently have visiting nurse or other home services: No Alcohol intake: never Patient Tobacco Use Status: Never used Tobacco e-Cigarette/Vaping Use: Never Used Second Hand Smoke Exposure: No service: No Current occupational status: disabled Current occupational exposures/hazards: No Cognitive needs: No Hearing needs: No Vision needs: No Review of Systems Const Denies chills, Denies fatigue, Denies fever(s), Denies weight gain and Denies weight loss ENT Denies dizziness Card Denies chest pain, Denies leg edema, Denies lightheadedness, Denies palpitations, Denies dyspnea on exertion, Denies orthopnea and Denies other Resp Denies cough, Denies dyspnea on exertion and Denies wheezing GI Denies hematochezia and Denies change in stool character Musc Denies abnormal gait, Denies muscle weakness, Denies numbness, Denies radiating pain into limb and Denies tingling Neuro Denies abnormal gait, Denies dizziness, Denies numbness and Denies tingling Psych Denies anxiety and Denies depression Endo Denies fatigue and Denies palpitations Aller/Immun Denies wheezing Physical Exam Vital Signs: Last Vital Signs Pulse 72 09/08/24 11:12 BP 126/70 09/08/24 11:12 Pulse Ox 99 09/08/24 11:12 Oxygen Delivery Method Room Air 09/08/24 11:12 BMI result Body Mass Index 33.1 Const General: cooperative and comfortable Orientation/consciousness: patient oriented x3 HEENT Head: Yes normal to inspection, Yes normocephalic and Yes atraumatic Ears: hearing grossly normal bilaterally Eyes General: appearance normal, both eyes and all related structures Neck Neck: Yes normal visual inspection and Yes trachea midline Chest Chest palpation & inspection: normal inspection of the chest Resp Effort & Inspection: normal respiratory effort and able to speak in complete sentences Auscultation: clear to auscultation bilaterally Cardio Rate: regular rate Rhythm: regular rhythm Heart sounds: S1 normal heart sound present and S2 normal heart sound present GI Palpation (GI): Soft to palpation Skin General skin exam: no rashes or lesions noted Neuro General: patient oriented x3 Extrem General: Yes no clubbing, cyanosis or edema Psych Appearance: grossly normal and well kempt Mental Status: mental status grossly normal Speech and movement: Normal speech and movement present and Clear speech present Affect: normal affect Attitude: cooperative Thought process: Normal thought process present Thought content: Normal thought content present Insight: Good insight present (Psych) Judgement: Good judgement present (Psych) Assessment & Plan Assessment & Plan (1) Left shoulder pain: Code(s): M25.512 - Pain in left shoulder Category: Medical Qualifiers: Chronicity: unspecified Qualified Code(s): M25.512 - Pain in left shoulder (2) Pulmonary nodules: Code(s): R91.8 - Other nonspecific abnormal finding of lung field Category: Medical (3) Pneumonitis: Comment: resolved based on CT from [facility] Code(s): J98.4 - Other disorders of lung Category: Medical (4) Pre-op chest exam: Code(s): Z01.811 - Encounter for preprocedural respiratory examination Category: Medical (5) Severe aortic stenosis: Code(s): I35.0 - Nonrheumatic aortic (valve) stenosis Category: Medical Plan Able to proceed with anesthesia and orthopedic surgery from a pulmonary standpoint. Low risk patient. Dymista repeat CT chest 07/2025 conitnue symbicort D/W Cardiology best modality for F/U 6-8 months Orders: Orders CT chest wo IV con 1 Year R91.1 - Solitary pulmonary nodule Coding Level of Care Code Est Pt Level 4 (40061) Complex EM visit Add On G2211 Diagnoses Left shoulder pain, unspecified chronicity M25.512 Chronicity: unspecified Pulmonary nodules R91.8 Pneumonitis J98.4 Pre-op chest exam Z01.811 Severe aortic stenosis I35.0 Time Spent (min) 18
== END 2024-09-08 11:45 | disposition home or self-care (01) ==
LOC: HO.HPS 11:07
PROVIDERS: PCP Family Medicine; Visit Provider Hospitalist
DX: M25.512 Pain in left shoulder (principal); R91.8 Other nonspecific abnormal finding of lung field; J98.4 Other disorders of lung; Z01.811 Encounter for preprocedural respiratory examination; I35.0 Nonrheumatic aortic (valve) stenosis
CPT/HCPCS: 99214; G2211

== ENCOUNTER 2024-09-08 11:06 | Outpatient (REF) | payer OTHER, SELFPAY ==
[2024-09-08 11:56] LABS: MANUAL DIFF FLAG NO
[2024-09-08 12:08] LABS: Basophils Absolute Auto 0.1 X10*3/uL (0.0-0.2); Eosinophils Percent Auto 12.5 % (0-4); Hematocrit 35.7 % (37.0-47.0); Hemoglobin 11.7 g/dl (12.0-16.0); Imm Gran Abs Auto 0.02 X10*3/uL (0.00-0.03); Imm Gran Pct Auto 0.3 % (0.0-0.4); Immature Retic Fraction 12.6 % (3.0-15.9); Lymphocytes Absolute Auto 2.8 X10*3/uL (1.2-4.9); Lymphocytes Percent Auto 36.9 % (20-40); Mean Corpuscular HGB Conc 32.8 g/dl (31.0-35.0); Mean Corpuscular Hemoglobin 29.8 pg (27.0-33.0); Mean Corpuscular Volume 90.8 fL (80.0-98.0); Mean Platelet Volume 9.2 fL (9.4-12.3); Monocytes Absolute Auto 0.6 X10*3/uL (0.1-1.2); Monocytes Percent Auto 7.7 % (2-11); Neutrophils Absolute Auto 3.2 x10*3/uL (2.0-8.3); Neutrophils Percent Auto 41.6 % (45-73); Platelet Count 193 X10*3/uL (160-400); Red Blood Count 3.93 X10*6/uL (4.20-5.50); Red Cell Distribution Width 12.7 % (11.0-16.0); Retic HGB Equivalent 33.3 pg (30.0-35.0); Reticulocyte Percent 1.7 % (0.5-1.8); Reticulocytes Absolute 0.066 X10*6/uL (0.026-0.095); White Blood Count 7.7 X10*3/uL (4.8-10.8)
[2024-09-08 12:45] LABS: Alanine Aminotransferase 19 U/L (0-31); Alkaline Phosphatase 66 U/L (39-117); Anion Gap 11 (12-20); Aspartate Amino Transferase 24 U/L (5-31); Bilirubin Total 0.3 mg/dL (0.0-1.0); Blood Urea Nitrogen 18 mg/dL (9-16); Calcium 8.9 mg/dL (8.4-10.2); Carbon Dioxide 29 mmol/L (22-29); Chloride 104 mmol/L (96-108); Estimated Glomerular Filt Rate > 60; Glucose Random 99 mg/dL (60-115); Iron 46 mcg/dL (30-160); Percent Iron Saturation 15 % (15-50); Potassium 5.1 mmol/L (3.3-5.1); Sodium 139 mmol/L (135-145); Total Iron Binding Capacity 297 mcg/dL (228-428); Total Protein 7.6 g/dL (6.5-8.0); Unsaturated Iron Binding 251 ug/dL
[2024-09-08 12:59] LABS: Ferritin 43 ng/mL (10-250); Free T4 (Free Thyroxine) 1.26 ng/dL (0.71-1.85); Thyroid Stimulating Hormone 0.78 uIU/mL (0.32-4.0)
[2024-09-09 07:59] LABS: Triiodothyronine T3 Total 105 ng/dL (76-181)
== END 2024-09-08 11:07 | disposition home or self-care (01) ==
LOC: HO.LAB 11:06
PROVIDERS: Absent Provider Family Medicine; PCP Family Medicine; Referring Provider Nurse Practitioner Family; Visit Provider Hospitalist
DX: Z01.811 Encounter for preprocedural respiratory examination (principal); G47.33 Obstructive sleep apnea (adult) (pediatric); R51.9 Headache, unspecified; R91.8 Other nonspecific abnormal finding of lung field; M25.512 Pain in left shoulder; D64.9 Anemia, unspecified; E03.9 Hypothyroidism, unspecified; I10 Essential (primary) hypertension; I35.0 Nonrheumatic aortic (valve) stenosis; J98.4 Other disorders of lung
CPT/HCPCS: 36415; 80053; 82728; 83540; 84439; 84443; 84480; 85025; 85045; 99212

== ENCOUNTER 2024-09-08 13:08 | Outpatient (AMB) | payer OTHER, SELFPAY ==
--- NOTE | 2024-09-08 13:22 | MHC.OFFVIS ---
Vital Signs 09/08/24 13:23 Height 5 ft 2 in Weight 180 lb 12.465 oz BMI 33.1 BP 130/74 Blood Pressure Location Lt brachial Position Sitting Pulse 65 Pulse Source Pulse Oximeter Intake Visit Reasons: 6 mth s/p echo Apr Intake Note: 6 mth f/up Computer Clerk Required: No Accompanied by: Self / Same As Patient Allergies iodine Allergy (Severe, Verified 09/08/24 11:14) Unknown nabumetone [From Relafen] Allergy (Intermediate, Verified 09/08/24 11:14) ITCHING shellfish derived Allergy (Intermediate, Verified 09/08/24 11:14) Swelling tramadol [Tramadol] Allergy (Mild, Verified 09/08/24 11:14) ITCHING bee sting Adverse Reaction (Mild, Uncoded 07/26/24 14:25) Redness of Skin Medication List - Last Reconciled 09/08/24 by Jesse Hudson MD azelastine-fluticasone 137-50 mcg/spray (Dymista) 1 spray intranasal BID PRN budesonide-formoterol 160-4.5 mcg/actuation (Symbicort) 2 puffs inhalation BID PRN buspirone 10 mg PO BID PRN cholecalciferol (vitamin D3) (Vitamin D3) 25 mcg PO DAILY 30 days coenzyme Q10 200 mg PO BID fexofenadine 180 mg PO DAILY PRN ibuprofen 400 mg PO Q8H PRN 30 days levothyroxine 150 mcg PO DAILY 90 days lorazepam 1 mg PO DAILY PRN magnesium citrate,mag oxide 750 mg PO DAILY metoprolol succinate ER 25 mg PO BID oxycodone 10 mg PO Q12H 30 days pantoprazole 20 mg PO QAM paroxetine HCl 10 mg PO BEDTIME PRN xaraekxz-lfdy-cxtic-oreg-capry 100 mg-150 mg- 50 mg-150 mg 1 cap PO DAILY vitamin B complex 1 cap PO DAILY zolpidem 10 mg PO BEDTIME HPI Comments Details: 63-year-old female here for follow-up. She has background history of moderate aortic valve stenosis. She has been struggling with diarrhea and has lost significant weight. She is being seen by GI for that. He was complaining of palpitations previously and we arranged a Holter monitor which was normal. She was complaining of some chest discomfort on last visit. She had some risk factors for coronary disease. She was referred for exercise stress test. She developed ischemic appearing EKG changes without any significant symptoms. She continues to get some chest discomfort mostly complaining of some palpitations that her heart races suddenly. She is undergoing workup for her abdominal symptoms. She underwent CT enterography which showed constipation and fatty infiltration of the pancreas. She was referred for CT coronary angiogram which did not show any significant CAD. She is denying CP. She has some dyspnea and is following with Dr Okeefe. She continues to get some palpitations. Holter was normal previously. 01/06/23: She returns for follow-up. She is saying that she has been feeling palpitations at nighttime and has noticed her blood pressure to be elevated. She is hard primary care physician and was advised to start metoprolol succinate 25 mg once a day. She has been taking the regularly. She is still feeling palpitations at time but noticed that her heart rates are normal. No chest discomfort or any other concerning symptoms currently. 03/03/2024: She returns after recent echocardiography. ECHO has shown moderate severe aortic valve stenosis. She has no clear symptoms. Denying chest pain, shortness of breath or dizziness/syncope. She occasionally gets palpitations at nighttime when she is resting. 09/08/24: She is here for follow-up. She underwent cardiac catheterization which confirmed severe aortic valve stenosis. Her aortic valve area by cardiac catheterization was 0.88 with a mean gradient of 39 by Johnathon pigtail. She did not have any significant coronary artery disease. Pulmonary capillary wedge pressure was 20 mm Hg PA pressure 42/9 mean 24 and RA pressure was 6. She is here for follow-up and saying that she gets some shortness of breath with activities. She also has been getting some chest discomfort with activities. No dizziness or syncope. Her the angiography she was referred for surgical assessment and advised to undergo surgical aortic valve replacement. She is quite apprehensive about surgery and is asking what are the alternatives and we discussed in detail about surgical versus transcatheter aortic valve replacement. She is saying that she was told that there is high-risk of valve leakage with transcatheter approach and long-term durability of surgical aortic valves is better. I explained to her that I have reviewed her TAVR protocol CT and there is feasibility for doing transcatheter aortic valve replacement if she wishes to change her decision. [facility] Medical History Headache SERGIO (obstructive sleep apnea) Bronchitis Pulmonary nodules Hydroureter Acid reflux Elevated fasting blood sugar Degenerative disc disease Arthritis Thyroid disease Irritable bowel syndrome (IBS) GERD (gastroesophageal reflux disease) Depression Lab test negative for COVID-19 virus History of cardiac murmur History of palpitations Surgical History (Reviewed 09/08/24 @ 13:24 by Caitlyn Blankenship [facility]) History of cardiac cath History of back surgery Hx of cholecystectomy H/O excision of ganglion cyst History of esophagogastroduodenoscopy (EGD) Hx of tubal ligation H/O colonoscopy Family History (Reviewed 09/08/24 @ 13:24 by Caitlyn Blankenship [facility]) Father Asthma Mother Arthritis Medical history non-contributory Brother Colon cancer Brother No problems noted. Brother No problems noted. Sister No problems noted. Sister No problems noted. Sister No problems noted. Son No problems noted. Son No problems noted. Daughter No problems noted. Social History (Reviewed 09/08/24 @ 13:24 by Caitlyn Blankenship [facility]) Household Members: None Household Members Other:: alone Housing: House Are you a primary managed care analyst to a significant other at home: No Do you presently have visiting nurse or other home services: No Alcohol intake: never Patient Tobacco Use Status: Never used Tobacco e-Cigarette/Vaping Use: Never Used Second Hand Smoke Exposure: No service: No Current occupational status: disabled Current occupational exposures/hazards: No Cognitive needs: No Hearing needs: No Vision needs: No Review of Systems Const Denies chills, Denies fatigue, Denies fever(s), Denies frequent falls, Denies weakness, Denies weight gain and Denies weight loss ENT Denies dizziness Card Denies chest pain, Denies leg edema, Denies lightheadedness, Denies palpitations, Denies dyspnea and Denies dyspnea on exertion Resp Denies cough, Denies dyspnea and Denies dyspnea on exertion GI Denies hematochezia Musc Denies abnormal gait, Denies muscle weakness, Denies numbness, Denies radiating pain into limb and Denies tingling Neuro Denies abnormal gait, Denies dizziness, Denies frequent falls, Denies numbness, Denies tingling and Denies weakness Endo Denies fatigue and Denies palpitations Physical Exam Vital Signs: Last Vital Signs Pulse 65 09/08/24 13:23 BP 130/74 09/08/24 13:23 BMI result Body Mass Index 33.1 GENERAL APPEARANCE: in no acute distress. NECK/THYROID: no carotid bruit, no jugular venous distention. SKIN: no suspicious lesions, warm and dry. HEART: Ejection systolic murmur in the aortic area with preserved 2nd heart sound. Murmur radiation to carotids. Carotid upstroke is somewhat delayed. LUNGS: clear to auscultation bilaterally. ABDOMEN: normal, bowel sounds present, soft, nontender, nondistended. EXTREMITIES: no clubbing, cyanosis, or edema. PERIPHERAL PULSES: equal. NEUROLOGIC: nonfocal, alert and oriented. PSYCH: mood/affect full range. Assessment & Plan Assessment & Plan (1) Severe aortic stenosis: Code(s): I35.0 - Nonrheumatic aortic (valve) stenosis Category: Medical (2) Hypertension: Code(s): I10 - Essential (primary) hypertension Category: Medical Qualifiers: Hypertension type: primary hypertension Qualified Code(s): I10 - Essential (primary) hypertension Plan Pleasant 63 year female with severe symptomatic aortic valve stenosis. She has severe aortic valve stenosis by cardiac catheterization with aortic valve area calculated at 0.88 cm2 and mean gradient across aortic valve of 39 mm Hg. She had echocardiography before cardiac catheterization which raise concern for low-flow low gradient severe with mean gradient across aortic valve 29 mm Hg and aortic valve area of 0.83 cm2. She was seen by surgery and was advised to undergo surgical aortic valve replacement. She had TAVR protocol CT which I have reviewed. She is here and she is apprehensive about surgery and is asking for alternative options. We discussed in detail about natural history of aortic valve stenosis and management options. I have explained to her that there is surgical aortic valve replacement and transcatheter approach. Surgical aortic valve replacement has been present for long time with longer duration of follow-up. I have explained to her that the durability data for surgical aortic valve replacement versus TAVR is up to 10 years at this point and both modalities are quite comparable. The risk of paravalvular leak is there but severe/consequential paravalvular leaks are quite uncommon. I have explained to her that there is risk of pacemaker which is more with transcatheter approach versus surgical approach. Recovery definitely is better with transcatheter approach. I have tried to give her a balanced idea about both approaches. She wishes to explore transcatheter aortic valve replacement if possible. On my review of her CT scan she is a candidate for transcatheter approach and I do not see any high-risk features. We will discuss her case in the heart team meeting with our colleagues to see what is the best option keeping in mind the life time management in this younger lady. We will get back to her once we have the heart team discussion. Thank you for allowing me to participate in the care of your patient. Please feel free to contact me if you have any questions. Coding Level of Care Code Est Pt Level 5 (74710) Diagnoses Severe aortic stenosis I35.0 Primary hypertension I10 Hypertension type: primary hypertension
[2024-09-08 13:23] VITALS: BP 130/74; PULSE 65; BMI 33.1
== END 2024-09-08 14:08 | disposition home or self-care (01) ==
LOC: HO.HCS 13:09
PROVIDERS: PCP Family Medicine; Visit Provider Internal Medicine Cardiovascular Disease
DX: I35.0 Nonrheumatic aortic (valve) stenosis (principal); I10 Essential (primary) hypertension
CPT/HCPCS: 99214

== ENCOUNTER 2024-09-09 13:41 | Outpatient (AMB) | payer OTHER, SELFPAY ==
--- NOTE | 2024-09-09 13:43 | A.OFFPC_ITS ---
Vital Signs 09/09/24 13:48 Height 5 ft 2 in Weight 180 lb 6 oz BMI 33.0 BP 116/72 Blood Pressure Location Lt brachial Position Sitting Respiration 14 Pulse 71 Pulse Source Pulse Oximeter Temp 97.6 F Temp Source Oral Pulse Oximetry (%) 98 Oxygen Delivery Method Room Air Intake Visit Reasons: f/u labs Intake Note: patient is scheduled for follow-up for labs. Patient is having open heart surgery and needs a referral for blood pressure, pulse oximeter and shower chair for after surgery. Allergies iodine Allergy (Severe, Verified 09/09/24 13:45) Unknown nabumetone [From Relafen] Allergy (Intermediate, Verified 09/09/24 13:45) ITCHING shellfish derived Allergy (Intermediate, Verified 09/09/24 13:45) Swelling tramadol [Tramadol] Allergy (Mild, Verified 09/09/24 13:45) ITCHING bee sting Adverse Reaction (Mild, Uncoded 09/09/24 13:45) Redness of Skin Medication List - Last Reconciled 09/09/24 by Jakob Orellana MD azelastine-fluticasone 137-50 mcg/spray (Dymista) 1 spray intranasal BID PRN budesonide-formoterol 160-4.5 mcg/actuation (Symbicort) 2 puffs inhalation BID PRN buspirone 10 mg PO BID PRN cholecalciferol (vitamin D3) (Vitamin D3) 25 mcg PO DAILY 30 days coenzyme Q10 200 mg PO BID fexofenadine 180 mg PO DAILY PRN ibuprofen 400 mg PO Q8H PRN 30 days levothyroxine 150 mcg PO DAILY 90 days lorazepam 1 mg PO DAILY PRN magnesium citrate,mag oxide 750 mg PO DAILY metoprolol succinate ER 25 mg PO BID naloxone 4 mg/actuation 4 mg intranasal Q2M PRN 30 days oxycodone 10 mg PO Q12H 30 days pantoprazole 20 mg PO QAM paroxetine HCl 10 mg PO BEDTIME PRN vwqzoqjh-mavi-ynpoh-oreg-capry 100 mg-150 mg- 50 mg-150 mg 1 cap PO DAILY vitamin B complex 1 cap PO DAILY zolpidem 10 mg PO BEDTIME Tobacco use date assessed: 09/09/24 Fall risk assessment: No Falls in past year Dental Screening Dental Screen Date: 09/09/24 Did you have a dental visit in the last 12 months?: Yes Did you have a dental problem in the last 6 months where you did not have access to dental care?: No Was dental information given to patient?: No HPI f/u labs HPI Details 63 y/o female presents to f/u HTN, mild anemia, hypothyroidism, unsteady gait. Had some lower extremity weakness, partly due to hx of L sciatica. Labs drawn 09/08/24. Reviewed labs with pt. Ongoing mild anemia. TSH improved from 4.41 to 0.78. Free T4 1.26. Total T3 105. Lipid panel drawn 07/29/24. Triglycerides 183. TC 202. LDL 121. HDL 45. PFSH Medical History Headache SERGIO (obstructive sleep apnea) Bronchitis Pulmonary nodules Hydroureter Acid reflux Elevated fasting blood sugar Degenerative disc disease Arthritis Thyroid disease Irritable bowel syndrome (IBS) GERD (gastroesophageal reflux disease) Depression Lab test negative for COVID-19 virus History of cardiac murmur History of palpitations Surgical History History of cardiac cath History of back surgery Hx of cholecystectomy H/O excision of ganglion cyst History of esophagogastroduodenoscopy (EGD) Hx of tubal ligation H/O colonoscopy Family History Father Asthma Mother Arthritis Medical history non-contributory Brother Colon cancer Brother No problems noted. Brother No problems noted. Sister No problems noted. Sister No problems noted. Sister No problems noted. Son No problems noted. Son No problems noted. Daughter No problems noted. Social History Household Members: None Household Members Other:: alone Housing: House Are you a primary primary care nurse practitioner to a significant other at home: No Do you presently have visiting nurse or other home services: No Alcohol intake: never Patient Tobacco Use Status: Never used Tobacco e-Cigarette/Vaping Use: Never Used Second Hand Smoke Exposure: No service: No Current occupational status: disabled Current occupational exposures/hazards: No Cognitive needs: No Hearing needs: No Vision needs: No Questionnaire Thrive Questionnaire Date Thrive assessed: 05/25/24 I am a: Patient What is your living situation today?: I have a steady place to live Within the past 12 months, did the food you bought not last and you didn't have the money to get more?: Never true Within the past 12 months, did you worry whether your food would run out before you got money to buy more?: Never true Do you have trouble paying for medicines?: No Do you have trouble getting transportation to medical appointments?: No Do you have trouble paying your heating and electricity bill?: No Do you have trouble taking care of your child, family member or friend?: No Do you have trouble with day-to-day activities such as bathing, preparing meals, shopping, managing finances, etc.?: Yes Are you currently unemployed and looking for a job?: I choose not to answer this question Are you interested in more education?: No Please select the resources that you would like help with: None Currently or been in a relationship where the following occur: No concerns reported THRIVE Score: 0 YUMIKO-7 AMB Questionnaire YUMIKO-7 Date YUMIKO - 7 assessed: 04/08/23 Source: Developed by Drs. Brian Abreu, Daina Ahmadi, Ralph Redmond and colleagues, with an educational brian from [employer]. Review of Systems Const Denies chills, Denies fatigue, Denies fever(s), Denies headache(s) and Denies weakness ENT Denies dizziness and Denies headache(s) Card Denies dyspnea Resp Denies cough, Denies dyspnea, Denies wheezing and Denies other (shortness of breath) Musc Denies numbness and Denies tingling Neuro Denies dizziness, Denies headache(s), Denies numbness, Denies tingling and Denies weakness Psych Denies anxiety and Denies depression Endo Denies fatigue Aller/Immun Denies wheezing Physical exam (Primary Care) Vital Signs: Last Vital Signs Temp 97.6 F 09/09/24 13:48 Pulse 71 09/09/24 13:48 Resp 14 09/09/24 13:48 BP 116/72 09/09/24 13:48 Pulse Ox 98 09/09/24 13:48 Oxygen Delivery Method Room Air 09/09/24 13:48 BMI result Body Mass Index 33.0 Tobacco/Smoking Status: Tobacco use Status Tobacco use date assessed 09/09/24 09/09/24 13:55 Patient Tobacco Use Status Never used Tobacco 09/09/24 13:45 e-Cigarette/Vaping Use Never Used 09/09/24 13:45 Thrive Assessment: Date of Thrive Assessment Date Thrive assessed 05/25/24 09/09/24 13:45 Currently or been in a relationship where the following occur: No concerns reported Const General: well developed; No acute distress Nutritional Appearance: well nourished Orientation/consciousness: patient oriented x3 HENMT Head: Yes normocephalic and Yes atraumatic Eyes General: appearance normal, both eyes and all related structures Pupils: Equal, round and reactive pupils present EOM: EOMs intact bilaterally Resp Effort & Inspection: normal respiratory effort Auscultation: clear to auscultation bilaterally Cardio Rate: regular rate Rhythm: regular rhythm Heart sounds: S1 normal heart sound present, S2 normal heart sound present, no gallops, no murmurs and no rubs Neuro General: patient oriented x3 and gait normal Cranial nerves: Yes Equal, round and reactive pupils present Psych Affect: normal affect Coding Level of Care Code Est Pt Level 4 (95105) Diagnoses Mild anemia D64.9 Hypothyroidism E03.9 Chronic pain G89.29 Unsteady gait R26.81 Elevated LDL cholesterol level E78.00 Primary hypertension I10 Hypertension type: primary hypertension Assessment & Plan Assessment & Plan (1) Mild anemia: Code(s): D64.9 - Anemia, unspecified Category: Medical Plan: Stable We?can?continue?to?monitor?periodically (2) Hypothyroidism: Code(s): E03.9 - Hypothyroidism, unspecified Category: Medical Plan: TSH?was?slightly?out?of?range?at?recent?lab?work?in?[place] Repeat?labs?in?May?show?all?thyroid?hormone?levels?in?normal?range Continue?levothyroxine?as?prescribed (3) Chronic pain: Code(s): G89.29 - Other chronic pain Category: Medical Plan: Chronic?pain?from?fibromyalgia?as?well?as?low?back?pain?with?sciatica?an?s/p?a?b ack?surgery?for?which?I?do?not?have?further?information. She?has?been?stable?and?steady?opioid?regimen?for?quite?some?time. There?was?some?difficulty?with?her?insurance?paying?for?this?medication?and?it?w as?unclear?what?the?problem?was. Patient?says?were?recently?her?medication?is?ready?for?pickup. Continue?current?medication?regimen (4) Unsteady gait: Code(s): R26.81 - Unsteadiness on feet Category: Medical Plan: Secondary?to?back?pain?and?sciatica Walking?with?decent?stability?today Continue?walking?regularly - keep?muscles?strong (5) Elevated LDL cholesterol level: Code(s): E78.00 - Pure hypercholesterolemia, unspecified Category: Medical Plan: LDL?cholesterol?has?risen Encouraged?diet?lower?in?saturated?fats?and?cholesterol Will?recheck?in?a?few?months (6) Hypertension: Code(s): I10 - Essential (primary) hypertension Category: Medical Qualifiers: Hypertension type: primary hypertension Qualified Code(s): I10 - Essential (primary) hypertension Plan: Blood?pressure?is?controlled Medications: New naloxone 4 mg/actuation spray 1 dose into ONE nostril; alternate nostrils w each dose until help arrives 4 mg intranasal Q2M 30 days PRN 2 ea 2RF opioid overdose
[2024-09-09 13:48] VITALS: BP 116/72; PULSE 71; RESP 14; TEMP 36.4; O2SAT 98; BMI 33.0
== END 2024-09-09 14:22 | disposition home or self-care (01) ==
LOC: HO.HMCFM 13:42
PROVIDERS: PCP Family Medicine; Visit Provider Family Medicine
DX: D64.9 Anemia, unspecified (principal); E03.9 Hypothyroidism, unspecified; G89.29 Other chronic pain; R26.81 Unsteadiness on feet; E78.00 Pure hypercholesterolemia, unspecified; I10 Essential (primary) hypertension

== ENCOUNTER → 2024-09-09 13:41 | Outpatient (BNVA) | payer OTHER, SELFPAY | PROVIDERS: PCP Family Medicine; Visit Provider Family Medicine | DX: I10 Essential (primary) hypertension (principal); E03.9 Hypothyroidism, unspecified; R26.81 Unsteadiness on feet; D64.9 Anemia, unspecified; G89.29 Other chronic pain; E78.00 Pure hypercholesterolemia, unspecified | CPT/HCPCS: 99212 ==

== ENCOUNTER 2024-09-15 12:52 | Outpatient (REF) | payer OTHER, SELFPAY ==
--- NOTE | ~2024-09-15 | US_ITS ---
EXAMINATION: US KIDNEY BILATERAL HISTORY: N13.4 - Hydroureter TECHNIQUE: Real-time grayscale ultrasound imaging of the kidneys was performed and images were reviewed. COMPARISON: Comparison is made with the prior examination dated 06/17/2023. FINDINGS: Right kidney: The right kidney measures 11.6 x 3.7 x 5.0 cm. Renal parenchymal echotexture and thickness are normal. There are no masses. There is no hydronephrosis or renal calculi. Left Kidney: The left kidney measures 10.8 x 5.8 x 5.3 cm. Renal parenchymal echotexture and thickness are normal. There are no masses. There is no hydronephrosis or renal calculi. US/US renal BI IMPRESSION: Unremarkable renal ultrasound. Electronically signed by: Brian Crockett MD 09/15/2024 01:16 PM EDT
== END 2024-09-15 12:53 | disposition home or self-care (01) ==
LOC: HO.HMGCX 12:52
PROVIDERS: PCP Family Medicine; Visit Provider Nurse Practitioner Family
DX: N13.4 Hydroureter (principal)
CPT/HCPCS: 76775

== ENCOUNTER → 2024-09-15 12:53 | Outpatient (BNV) | payer OTHER, SELFPAY | PROVIDERS: PCP Family Medicine; Visit Provider Radiology Diagnostic Radiology | DX: N13.4 Hydroureter (principal) | CPT/HCPCS: 76775 ==

== ENCOUNTER 2024-10-06 14:02 | Outpatient (AMB) | payer OTHER, SELFPAY ==
--- NOTE | 2024-10-06 14:29 | A.OFFPC_ITS ---
Vital Signs 10/06/24 14:36 Height 5 ft 2 in Weight 181 lb BMI 33.1 BP 120/58 L Blood Pressure Location Lt brachial Position Sitting Respiration 14 Pulse 72 Pulse Source Pulse Oximeter Temp 98.3 F Temp Source Oral Pulse Oximetry (%) 99 Oxygen Delivery Method Room Air Intake Visit Reasons: [facility]/heart surgery D/C 09/28/24 Intake Note: Post heart surgery follow up. Ran out of furosemide. Wants to know if should still continue. 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 Allergies iodine Allergy (Severe, Verified 10/06/24 14:30) Unknown nabumetone [From Relafen] Allergy (Intermediate, Verified 10/06/24 14:30) ITCHING shellfish derived Allergy (Intermediate, Verified 10/06/24 14:30) Swelling tramadol [Tramadol] Allergy (Mild, Verified 10/06/24 14:30) ITCHING bee sting Adverse Reaction (Mild, Uncoded 10/06/24 14:30) Redness of Skin Tobacco use date assessed: 10/06/24 Fall risk assessment: No Falls in past year Last assessed Fall Risk: 10/06/24 Dental Screening Dental Screen Date: 09/09/24 HPI [facility]/heart surgery D/C 09/28/24 HPI Details Patient is a 63-year-old female with a significant past medical history of hypertension, aortic stenosis, hypothyroidism, hyperlipidemia, impaired fasting glucose and chronic pain presenting today for a hospital follow up. She was seen in the hospital for a cardiac catheterization and was noted to have severe aortic stenosis which she states they told her was worse than what they thought on echo. They recommended that she consult with the surgeon at that point. She states that then she underwent AVR-t by Dr. Lanza on 09/22/2024. She was discharged from the hospital on 09/28/2024. Discharge recommends repeat CBC as well admitted on 09/27 she did require 1 unit of PRBC. CV: She says that she has a follow up with Cardiology on Friday. She was discharged on metoprolol 50 mg b.i.d., aspirin 81 mg daily, atorvastatin 80 mg daily, Lasix 40 mg x1 week and amiodarone 200 mg b.i.d.. She has not noticed any swelling in the Lasix stopped yesterday. She is monitoring her at home weights. States that she had a 1 lb variation between yesterday and today. She is not having anymore chest pain or shortness on breath. She says that she is feeling a lot better since the surgery. MSK: They did give her at home oxycodone on top of her current regimen by her PCP. She states that she is still experiencing some pain postop around the incision but it is tolerable. She is currently managed with oxycodone 10 mg every 12 hours and gabapentin 300 mg t.i.d.. Endo: We will admitted she states that her blood sugars were a little elevated and they did recommend that this gets rechecked. I do have her discharge labs in which her glucose was 128 POC and on her CMP 107 no polyuria or polydipsia. [facility] Medical History Headache SERGIO (obstructive sleep apnea) Bronchitis Pulmonary nodules Hydroureter Acid reflux Elevated fasting blood sugar Degenerative disc disease Arthritis Thyroid disease Irritable bowel syndrome (IBS) GERD (gastroesophageal reflux disease) Depression Lab test negative for COVID-19 virus History of cardiac murmur History of palpitations Surgical History History of cardiac cath History of back surgery Hx of cholecystectomy H/O excision of ganglion cyst History of esophagogastroduodenoscopy (EGD) Hx of tubal ligation H/O colonoscopy Family History Father Asthma Mother Arthritis Medical history non-contributory Brother Colon cancer Brother No problems noted. Brother No problems noted. Sister No problems noted. Sister No problems noted. Sister No problems noted. Son No problems noted. Son No problems noted. Daughter No problems noted. Social History (Updated 10/06/24 @ 15:43 by Hafsa Grace CMA) Household Members: None Household Members Other:: alone Housing: House Are you a primary long term care pharmacist to a significant other at home: No Do you presently have visiting nurse or other home services: No Alcohol intake: never Patient Tobacco Use Status: Never used Tobacco e-Cigarette/Vaping Use: Never Used Second Hand Smoke Exposure: No Use of substances other than those prescribed or required for medical reasons: No service: No Current occupational status: disabled Current occupational exposures/hazards: No Cognitive needs: No Hearing needs: No Vision needs: No Questionnaire Thrive Questionnaire Date Thrive assessed: 05/25/24 I am a: Patient What is your living situation today?: I have a steady place to live Within the past 12 months, did the food you bought not last and you didn't have the money to get more?: Never true Within the past 12 months, did you worry whether your food would run out before you got money to buy more?: Never true Do you have trouble paying for medicines?: No Do you have trouble getting transportation to medical appointments?: No Do you have trouble paying your heating and electricity bill?: No Do you have trouble taking care of your child, family member or friend?: No Do you have trouble with day-to-day activities such as bathing, preparing meals, shopping, managing finances, etc.?: Yes Are you currently unemployed and looking for a job?: I choose not to answer this question Are you interested in more education?: No Please select the resources that you would like help with: None Currently or been in a relationship where the following occur: No concerns reported THRIVE Score: 0 AUDIT C Alcohol Use Questionnaire (AUDIT-C) 1. How often do you have a drink containing alcohol?: Never 3. How often do you have six or more drinks on one occasion?: Never Total Score: 0 YUMIKO-7 AMB Questionnaire YUMIKO-7 Date YUMIKO - 7 assessed: 04/08/23 Source: Developed by Drs. Brian Abreu, Daina Ahmadi, Ralph Redmond and colleagues, with an educational brian from [employer]. Physical exam (Primary Care) Vital Signs: Last Vital Signs Temp 98.3 F 10/06/24 14:36 Pulse 72 10/06/24 14:36 Resp 14 10/06/24 14:36 BP 120/58 L 10/06/24 14:36 Pulse Ox 99 10/06/24 14:36 Oxygen Delivery Method Room Air 10/06/24 14:36 BMI result Body Mass Index 33.1 Tobacco/Smoking Status: Tobacco use Status Tobacco use date assessed 10/06/24 10/06/24 14:36 Patient Tobacco Use Status Never used Tobacco 10/06/24 14:36 e-Cigarette/Vaping Use Never Used 10/06/24 14:36 Thrive Assessment: Date of Thrive Assessment Date Thrive assessed 05/25/24 10/06/24 14:36 Currently or been in a relationship where the following occur: No concerns reported Const Orientation/consciousness: patient oriented x3 HENMT Ears: hearing grossly normal bilaterally Neck Thyroid: Thyroid normal Lymphatic: no lymphadenopathy noted Resp Auscultation: clear to auscultation bilaterally Cardio Rate: regular rate Rhythm: regular rhythm GI Inspection: Yes normal to inspection Palpation (GI): Soft to palpation and nontender Auscultation: normoactive bowel sounds Skin General skin exam: no rashes or lesions noted Neuro General: patient oriented x3, gait normal and no focal motor deficits Coding Level of Care Code Est Pt Level 4 (99265) Complex EM visit Add On G2211 Diagnoses Elevated fasting blood sugar R73.01 Primary hypertension I10 Hypertension type: primary hypertension S/P AVR (aortic valve replacement) Z95.2 Assessment & Plan Assessment & Plan (1) Elevated fasting blood sugar: Code(s): R73.01 - Impaired fasting glucose Category: Medical Plan: a1c ordered (2) Hypertension: Code(s): I10 - Essential (primary) hypertension Category: Medical Qualifiers: Hypertension type: primary hypertension Qualified Code(s): I10 - Essential (primary) hypertension Plan: Blood pressure today in the office is WNL. Continue current regimen. Has close follow up with Cardiology (3) S/P AVR (aortic valve replacement): Code(s): Z95.2 - Presence of prosthetic heart valve Category: Surgical Plan: Feeling well since valve replacement. Plan Labs ordered today. We will recheck CBC, BMP and A1c. We will follow up pending test results. I have encouraged short term follow up with PCP and she does have Cardiology follow up in 2 days. She will contact us if anything worsens or changes. Patient understands and agrees with this plan. Orders: Orders Complete Blood Count Auto Diff 10/06/24 R73.01 - Impaired fasting glucose Basic Metabolic Panel 10/06/24 R73.01 - Impaired fasting glucose Hemoglobin A1c 10/06/24 R73.01 - Impaired fasting glucose
[2024-10-06 14:36] VITALS: BP 120/58; PULSE 72; RESP 14; TEMP 36.8; O2SAT 99; BMI 33.1
== END 2024-10-06 15:02 | disposition home or self-care (01) ==
LOC: HO.HMCFM 14:03
PROVIDERS: PCP Family Medicine; Visit Provider Physician Assistant
DX: R73.01 Impaired fasting glucose (principal); I10 Essential (primary) hypertension; Z95.2 Presence of prosthetic heart valve

== ENCOUNTER → 2024-10-06 14:02 | Outpatient (BNVA) | payer OTHER, SELFPAY | PROVIDERS: PCP Family Medicine; Visit Provider Physician Assistant | DX: I10 Essential (primary) hypertension (principal); I35.0 Nonrheumatic aortic (valve) stenosis; E03.9 Hypothyroidism, unspecified; E78.5 Hyperlipidemia, unspecified; G89.29 Other chronic pain; R73.01 Impaired fasting glucose; Z95.2 Presence of prosthetic heart valve; Z79.891 Long term (current) use of opiate analgesic; Z79.899 Other long term (current) drug therapy | CPT/HCPCS: 99212 ==

== ENCOUNTER 2024-10-06 15:05 | Outpatient (REF) | payer OTHER, SELFPAY ==
[2024-10-06 18:08] LABS: MANUAL DIFF FLAG NO
[2024-10-06 18:26] LABS: Estimated Average Glucose 97 mg/dL
[2024-10-06 18:34] LABS: Basophils Absolute Auto 0.1 X10*3/uL (0.0-0.2); Basophils Percent Auto 0.7 % (0-2); Eosinophils Absolute Auto 0.6 X10*3/uL (0.0-0.4); Eosinophils Percent Auto 7.2 % (0-4); Imm Gran Abs Auto 0.06 X10*3/uL (0.00-0.03); Imm Gran Pct Auto 0.7 % (0.0-0.4); Lymphocytes Absolute Auto 2.4 X10*3/uL (1.2-4.9); Lymphocytes Percent Auto 28.1 % (20-40); Mean Corpuscular HGB Conc 32.1 g/dl (31.0-35.0); Mean Corpuscular Hemoglobin 29.7 pg (27.0-33.0); Mean Corpuscular Volume 92.4 fL (80.0-98.0); Mean Platelet Volume 9.6 fL (9.4-12.3); Monocytes Absolute Auto 0.5 X10*3/uL (0.1-1.2); Monocytes Percent Auto 5.9 % (2-11); Neutrophils Absolute Auto 4.9 x10*3/uL (2.0-8.3); Neutrophils Percent Auto 57.4 % (45-73); Platelet Count 404 X10*3/uL (160-400); Red Blood Count 3.03 X10*6/uL (4.20-5.50); Red Cell Distribution Width 13.1 % (11.0-16.0); White Blood Count 8.6 X10*3/uL (4.8-10.8)
[2024-10-06 18:40] LABS: Alanine Aminotransferase 14 U/L (0-31); Albumin Level 3.8 g/dL (3.5-5.0); Alkaline Phosphatase 71 U/L (39-117); Anion Gap 10 (12-20); Aspartate Amino Transferase 26 U/L (5-31); Bilirubin Total 0.2 mg/dL (0.0-1.0); Blood Urea Nitrogen 16 mg/dL (9-16); Calcium 8.7 mg/dL (8.4-10.2); Carbon Dioxide 30 mmol/L (22-29); Chloride 103 mmol/L (96-108); Cholesterol 168 mg/dL (<200); Estimated Glomerular Filt Rate 60; Glucose Fasting 98 mg/dL (60-99); Glucose Random 98 mg/dL (60-115); HDL Cholesterol 40 mg/dL (>40); LDL Cholesterol Calculated 93 mg/dL (<100); Potassium 4.7 mmol/L (3.3-5.1); Sodium 138 mmol/L (135-145); Total Protein 7.4 g/dL (6.5-8.0); Triglycerides 177 mg/dL (<150)
[2024-10-06 19:53] LABS: Blood Urea Nitrogen 16 mg/dL (9-16)
== END 2024-10-06 15:06 | disposition home or self-care (01) ==
LOC: HO.WFDLDS 15:05
PROVIDERS: Physician Assistant; Referring Provider Nurse Practitioner Family; Visit Provider Family Medicine
DX: Z00.00 Encounter for general adult medical examination without abnormal findings (principal); R73.01 Impaired fasting glucose; N13.4 Hydroureter; D64.9 Anemia, unspecified; E78.00 Pure hypercholesterolemia, unspecified
CPT/HCPCS: 36415; 80048; 80053; 80061; 83036; 84520; 85025

== ENCOUNTER 2024-10-18 13:30 | Outpatient (AMB) | payer OTHER, SELFPAY ==
--- NOTE | 2024-10-18 13:49 | A.OFFVIS_ITS ---
Vital Signs 10/18/24 13:51 Height 5 ft 2 in Weight 179 lb 0.246 oz BMI 32.7 BP 120/64 Blood Pressure Location Lt brachial Position Sitting Pulse 71 Pulse Source Monitor Intake Visit Reasons: [facility]-F/up-Heart Surgery Intake Note: [facility]/F/up heary surgery Apparatus Lineman Required: No Apparatus Lineman Services: Apparatus Lineman Offered & Declined Apparatus Lineman Name: daughter Accompanied by: Daughter Allergies iodine Allergy (Severe, Verified 10/06/24 14:30) Unknown nabumetone (From Relafen) Allergy (Intermediate, Verified 10/06/24 14:30) ITCHING shellfish derived Allergy (Intermediate, Verified 10/06/24 14:30) Swelling tramadol (Tramadol) Allergy (Mild, Verified 10/06/24 14:30) ITCHING bee sting Adverse Reaction (Mild, Uncoded 10/06/24 14:30) Redness of Skin Medication List - Last Reconciled 10/18/24 by Jesse Hudson MD amiodarone 200 mg PO BID aspirin (Adult Low Dose Aspirin) 81 mg PO DAILY azelastine-fluticasone 137-50 mcg/spray (Dymista) 1 spray intranasal BID PRN budesonide-formoterol 160-4.5 mcg/actuation (Symbicort) 2 puffs inhalation BID PRN buspirone 10 mg PO BID PRN cholecalciferol (vitamin D3) (Vitamin D3) 25 mcg PO DAILY 30 days coenzyme Q10 200 mg PO BID fexofenadine 180 mg PO DAILY PRN furosemide 40 mg PO DAILY gabapentin 300 mg PO TID ibuprofen 400 mg PO Q8H PRN 30 days levothyroxine 150 mcg PO DAILY 90 days lorazepam 1 mg PO DAILY PRN magnesium citrate,mag oxide 750 mg PO DAILY metoprolol succinate ER 25 mg PO BID naloxone 4 mg/actuation 4 mg intranasal Q2M PRN 30 days oxycodone 10 mg PO Q12H 30 days pantoprazole 20 mg PO QAM paroxetine HCl 10 mg PO BEDTIME PRN lrskepjp-hvmu-ukrlu-oreg-capry 100 mg-150 mg- 50 mg-150 mg 1 cap PO DAILY vitamin B complex 1 cap PO DAILY zolpidem 10 mg PO BEDTIME HPI Comments Details: [age] year female who is here for follow-up. She had severe aortic valve stenosis and was dyspnea on exertion. She underwent TAVR protocol CTA and we had discussion as heart team and decision was made to proceed with surgical aortic valve replacement. She is now status post AVR. She is denying any chest discomfort. Her breathing has been stable. She has not started any cardiac rehabilitation. Blood pressure well controlled. [facility] Medical History Headache SERGIO (obstructive sleep apnea) Bronchitis Pulmonary nodules Hydroureter Acid reflux Elevated fasting blood sugar Degenerative disc disease Arthritis Thyroid disease Irritable bowel syndrome (IBS) GERD (gastroesophageal reflux disease) Depression Lab test negative for COVID-19 virus History of cardiac murmur History of palpitations Surgical History H/O heart surgery History of cardiac cath History of back surgery Hx of cholecystectomy H/O excision of ganglion cyst History of esophagogastroduodenoscopy (EGD) Hx of tubal ligation H/O colonoscopy Family History Father Asthma Mother Arthritis Medical history non-contributory Brother Colon cancer Brother No problems noted. Brother No problems noted. Sister No problems noted. Sister No problems noted. Sister No problems noted. Son No problems noted. Son No problems noted. Daughter No problems noted. Social History Household Members: None Household Members Other:: alone Housing: House Are you a primary acute care occupational therapist to a significant other at home: No Do you presently have visiting nurse or other home services: No Alcohol intake: never Patient Tobacco Use Status: Never used Tobacco e-Cigarette/Vaping Use: Never Used Second Hand Smoke Exposure: No service: No Current occupational status: disabled Current occupational exposures/hazards: No Cognitive needs: No Hearing needs: No Vision needs: No Review of Systems Const Denies chills, Denies fatigue, Denies fever(s), Denies frequent falls, Denies weakness, Denies weight gain and Denies weight loss ENT Denies dizziness Card Denies chest pain, Denies leg edema, Denies lightheadedness, Denies palpitations, Denies dyspnea and Denies dyspnea on exertion Resp Denies cough, Denies dyspnea and Denies dyspnea on exertion GI Denies hematochezia Musc Denies abnormal gait, Denies muscle weakness, Denies numbness, Denies radiating pain into limb and Denies tingling Neuro Denies abnormal gait, Denies dizziness, Denies frequent falls, Denies numbness, Denies tingling and Denies weakness Endo Denies fatigue and Denies palpitations Physical Exam Vital Signs: Last Vital Signs Pulse 71 10/18/24 13:51 BP 120/64 10/18/24 13:51 BMI result Body Mass Index 32.7 GENERAL APPEARANCE: in no acute distress, pleasant. NECK: no carotid bruit, no jugular venous distention. SKIN: Midline healed sternotomy wound. HEART: no murmurs, regular rate and rhythm. LUNGS: clear to auscultation bilaterally. ABDOMEN: soft, nontender. EXTREMITIES: no edema. PERIPHERAL PULSES: equal. NEUROLOGIC: No gross deficits, AAO X 3 Office Procedures EKG Details: Sinus rhythm 71 beats per minute, normal axis, normal ECG, QTC 478 milliseconds. [id number], Complete Assessment & Plan Assessment & Plan (1) Hypertension: Code(s): I10 - Essential (primary) hypertension Category: Medical Qualifiers: Hypertension type: primary hypertension Qualified Code(s): I10 - Essential (primary) hypertension (2) S/P AVR (aortic valve replacement): Code(s): Z95.2 - Presence of prosthetic heart valve Category: Surgical Plan Pleasant 63-year-old lady who is here for follow-up. She has background of severe aortic valve stenosis status post surgical AVR at this point. She has done quite well with surgery and is recovering well. We are referring her to cardiac rehabilitation. I will arrange echocardiogram to assess aortic valve gradients and to have a footprint of her prosthetic valve. Blood pressure well controlled. Follow up with us in few months. Thank you for allowing me to participate in the care of your patient. Please feel free to contact me if you have any questions. Orders: Orders CA echo transthoracic complete Today Z95.2 - Presence of prosthetic heart valve Cardiac Rehab Today Z95.2 - Presence of prosthetic heart valve, Z98.61 - Coronary angioplasty status Coding Level of Care Code Est Pt Level 4 (58543) Diagnoses Primary hypertension I10 Hypertension type: primary hypertension S/P AVR (aortic valve replacement) Z95.2 CPT Codes EKG - CPT: 54596-[id number], Complete ([id number])
[2024-10-18 13:51] VITALS: BP 120/64; PULSE 71; BMI 32.7
== END 2024-10-18 14:34 | disposition home or self-care (01) ==
LOC: HO.HCS 13:30
PROVIDERS: PCP Family Medicine; Visit Provider Internal Medicine Cardiovascular Disease
DX: I10 Essential (primary) hypertension (principal); Z95.2 Presence of prosthetic heart valve
CPT/HCPCS: 93010; 99214

== ENCOUNTER → 2024-10-18 13:30 | Outpatient (BNVA) | payer OTHER, SELFPAY | PROVIDERS: PCP Family Medicine; Visit Provider Internal Medicine Cardiovascular Disease | DX: N13.30 Unspecified hydronephrosis (principal); I10 Essential (primary) hypertension; I35.0 Nonrheumatic aortic (valve) stenosis; R06.09 Other forms of dyspnea; R91.8 Other nonspecific abnormal finding of lung field; Z95.2 Presence of prosthetic heart valve; Z98.61 Coronary angioplasty status | CPT/HCPCS: 93005; 99212 ==

== ENCOUNTER 2024-10-18 16:21 | Outpatient (AMB) | payer OTHER, SELFPAY ==
--- NOTE | 2024-10-18 16:21 | A.OFFVIS_ITS ---
Intake Visit Reasons: US/ Lab follow up Intake Note: Patient is present for follow up hydroureter labs and ultrasound Imagin09/15/24 BUN: 16; CREA: 0.94 Urology Medications: none Blood Thinner: none Lens Coating Technician Required: No Accompanied by: Self / Same As Patient Allergies iodine Allergy (Severe, Verified 10/18/24 16:28) Unknown nabumetone (From Relafen) Allergy (Intermediate, Verified 10/18/24 16:28) ITCHING shellfish derived Allergy (Intermediate, Verified 10/18/24 16:28) Swelling tramadol (Tramadol) Allergy (Mild, Verified 10/18/24 16:28) ITCHING bee sting Adverse Reaction (Mild, Uncoded 10/18/24 16:28) Redness of Skin Medication List - Last Reconciled 10/18/24 by EVENS Friedman- amiodarone 200 mg PO BID aspirin (Adult Low Dose Aspirin) 81 mg PO DAILY azelastine-fluticasone 137-50 mcg/spray (Dymista) 1 spray intranasal BID PRN budesonide-formoterol 160-4.5 mcg/actuation (Symbicort) 2 puffs inhalation BID PRN buspirone 10 mg PO BID PRN cholecalciferol (vitamin D3) (Vitamin D3) 25 mcg PO DAILY 30 days coenzyme Q10 200 mg PO BID fexofenadine 180 mg PO DAILY PRN furosemide 40 mg PO DAILY gabapentin 300 mg PO TID ibuprofen 400 mg PO Q8H PRN 30 days levothyroxine 150 mcg PO DAILY 90 days lorazepam 1 mg PO DAILY PRN magnesium citrate,mag oxide 750 mg PO DAILY metoprolol succinate ER 25 mg PO BID naloxone 4 mg/actuation 4 mg intranasal Q2M PRN 30 days oxycodone 10 mg PO Q12H 30 days pantoprazole 20 mg PO QAM paroxetine HCl 10 mg PO BEDTIME PRN qdqkvlkm-hifq-jygqd-oreg-capry 100 mg-150 mg- 50 mg-150 mg 1 cap PO DAILY vitamin B complex 1 cap PO DAILY zolpidem 10 mg PO BEDTIME HPI Comments Details: aMrgarette is a pleasant 63 year old female patient of Dr. Orellana. She has a past medical history of pulmonary nodules, GERD, degenerative disc disease, arthritis, hypothyroidism, irritable bowel syndrome, depression, aortic stenosis, and cardiac murmur. She is being followed up on today via video telehealth for her history of hydronephrosis. Recent renal imaging results were reviewed with the patient today 09/19 bilateral kidneys are normal in echotexture and thickness. There are no renal masses, renal calculi, and or hydronephrosis noted bilaterally. Recent BUN and creatinine results were reviewed with the patient today. She denies having had any bothersome urinary issues or concerns since her last office visit over a year ago. She denies urinary urgency, urinary frequency, incontinence, nocturia, hematuria, dysuria, foul smelling urine, changes to urinary stream, flank pain, fever, and or chills. She is happy with her current voiding parameters. BUN: 06/20 11, 01/18 12, 07/19 17, 09/19 16 Creatinine: 06/20 0.68, 01/18 0.77, 07/19 0.85, 09/19 0.[address] 01/17 suggesting right hydronephrosis that described possible left UPJ obstruction therefore Lasix renogram 05/20 was ordered and noted relative function of the 2 kidneys based on a 2-3 minute. The relative function of the two kidneys based on the 2-3 minute images are: Left 54% and right 46%. The left kidney with normal perfusion and function. Minimal hydronephrosis maybe present, but no significant outflow obstruction is present. Right kidney with normal perfusion and function. No hydronephrosis or outflow obstruction. When asked she denies any changes to her urinary habits. All questions were answered. She otherwise offers no other issues or concerns at this time. [facility] Medical History Headache SERGIO (obstructive sleep apnea) Bronchitis Pulmonary nodules Hydroureter Acid reflux Elevated fasting blood sugar Degenerative disc disease Arthritis Thyroid disease Irritable bowel syndrome (IBS) GERD (gastroesophageal reflux disease) Depression Lab test negative for COVID-19 virus History of cardiac murmur History of palpitations Surgical History H/O heart surgery History of cardiac cath History of back surgery Hx of cholecystectomy H/O excision of ganglion cyst History of esophagogastroduodenoscopy (EGD) Hx of tubal ligation H/O colonoscopy Family History Father Asthma Mother Arthritis Medical history non-contributory Brother Colon cancer Brother No problems noted. Brother No problems noted. Sister No problems noted. Sister No problems noted. Sister No problems noted. Son No problems noted. Son No problems noted. Daughter No problems noted. Social History Household Members: None Household Members Other:: alone Housing: House Are you a primary customer care voice consultant to a significant other at home: No Do you presently have visiting nurse or other home services: No Alcohol intake: never Patient Tobacco Use Status: Never used Tobacco e-Cigarette/Vaping Use: Never Used Second Hand Smoke Exposure: No service: No Current occupational status: disabled Current occupational exposures/hazards: No Cognitive needs: No Hearing needs: No Vision needs: No Review of Systems Const Reports no additional complaints Eyes Reports no additional complaints ENT Reports no additional complaints Card Reports as per HPI Resp Reports as per HPI GI Reports as per HPI Reports as per HPI Musc Reports as per HPI Neuro Reports no additional complaints Psych Reports as per HPI Endo Reports as per HPI Nomi/Lymph Reports no additional complaints Aller/Immun Reports no additional complaints Physical Exam Const General: cooperative, healthy appearing, comfortable, no acute distress, well developed, alert and awake Orientation/consciousness: patient oriented x3 Resp Effort & Inspection: normal respiratory effort and able to speak in complete sentences Neuro General: patient oriented x3 Psych Appearance: grossly normal and well kempt Mental Status: mental status grossly normal Speech and movement: Clear speech present Affect: normal affect Attitude: cooperative Thought content: Normal thought content present Insight: Fair insight present (Psych) Judgement: Fair judgement present (Psych) Telehealth Telehealth Telehealth Platform: [facility] Location of provider rendering services: practice address Location of patient: address on file Patient Identification confirmed using: Name, : Yes Telehealth method: video Patient verbally consented to treatment: Yes Patient verbally consented to billing insurance company: Yes Patient informed of any privacy concerns related to visit: Yes Minutes spent on Phone/Video with Pt.: 15 Results Reviewed Results Reviewed: Date of Service: 09/15/24 Procedure(s): US renal BI FINDINGS: Right kidney: The right kidney measures 11.6 x 3.7 x 5.0 cm. Renal parenchymal echotexture and thickness are normal. There are no masses. There is no hydronephrosis or renal calculi. Left Kidney: The left kidney measures 10.8 x 5.8 x 5.3 cm. Renal parenchymal echotexture and thickness are normal. There are no masses. There is no hydronephrosis or renal calculi. IMPRESSION: Unremarkable renal ultrasound. Assessment & Plan Assessment & Plan (1) Hydronephrosis: Code(s): N13.30 - Unspecified hydronephrosis Category: Medical Plan Recent renal imaging results reviewed with the patient today; as noted above. BUN and creatinine results were reviewed with the patient today; as noted above. She currently denies any bothersome urinary issues or concerns. She reports be happy with current voiding parameters. Will continue with surveillance monitoring. Will obtain renal ultrasound, BUN, and creatinine in 1 year. Follow-up in 1 year with imaging to be completed prior; or sooner with any issues, concerns, and or questions. Orders: Orders US renal BI 1 Year N13.30 - Unspecified hydronephrosis Blood Urea Nitrogen 1 Year N13.30 - Unspecified hydronephrosis Creatinine 1 Year N13.30 - Unspecified hydronephrosis Patient Instructions: The patient had an opportunity to ask questions regarding the treatment plan. All questions were answered. Physical exam, labs, and imaging were discussed and reviewed in detail. As well as risks, benefits, and discussion of treatment choices. No major barriers to understanding were identified. The patient expressed understanding and agreement with the above treatment plan. The patient was made aware they should contact our office by phone for worsening of their current condition, the appearance of new symptoms, or with any questions or concerns. Compliance is encouraged with any medications and follow up testing that is ordered. It is a privilege to be allowed the opportunity to participate in? your urological care.? Again, if you have any questions or concerns If you have any questions or concerns please do not hesitate to contact me. The office is [phone]. This note is constructed using voice recognition software. While every effort has been made to ensure accuracy wire charger errors may have been included. Yours sincerely, EVENS Friedman-BETTYE Coding Level of Care Code Tele Est Pt Level 3 (25356) Diagnoses Hydronephrosis N13.30
== END 2024-10-18 16:47 | disposition home or self-care (01) ==
LOC: HO.HUSH 16:21
PROVIDERS: PCP Family Medicine; Visit Provider Nurse Practitioner Family
DX: N13.30 Unspecified hydronephrosis (principal)
CPT/HCPCS: 99213

== ENCOUNTER → 2024-11-18 09:50 | Outpatient (REF) | payer MEDICARE, MEDICAID, SELFPAY ==
--- NOTE | 2024-11-18 09:53 | CA_ITS ---
Transthoracic Echocardiogram Patient (Last, First, Middle): Margarette Fry, Gender: Female Date of : 1960 Age: 64 Procedure Date: 11/18/2024 Procedure Type: Transthoracic Echocardiogram Location: OP Height: 157.48 cm Weight: 81.19 kg BSA: 1.82 m2 Heart Rate: bpm BP: 120 / 64 mmHg Research Laboratory Manager: JIM Referring MD: Jesse Hudson MD Personal Vehicle Advisor: Jesse Hudson MD Symptoms: Z95.2 - Presence of prosthetic heart valve Study Quality: Fair, post op chest tenderness Conclusions: - Normal left ventricular size and systolic function. The visually estimated ejection fraction is between 55-60%. There is no evidence of regional wall motion abnormalities. Diastolic function is normal for age. There is mild septal asymmetric hypertrophy. - Normal right ventricular cavity size and systolic function. - The left atrium is mildly dilated. - A bioprosthetic aortic valve is present. The prosthetic aortic valve appears to be functioning normally. Findings Left Ventricle Normal left ventricular size and systolic function. The visually estimated ejection fraction is between 55-60%. There is no evidence of regional wall motion abnormalities. Diastolic function is normal for age. There is mild septal asymmetric hypertrophy. Right Ventricle Normal right ventricular cavity size and systolic function. Atria The left atrium is mildly dilated. The right atrium is normal in size. Aortic Valve A bioprosthetic aortic valve is present. The prosthetic aortic valve appears to be functioning normally. There is no aortic valve stenosis. The mean gradient is 5 mmHg. There is no aortic valve regurgitation. Mitral Valve The mitral valve appears normal. There is mild mitral valve regurgitation. There is no mitral valve stenosis. Pulmonic Valve The pulmonic valve is likely normal. Tricuspid Valve Normal tricuspid valve structure. There is no tricuspid valve regurgitation. Normal right atrial pressure. There is no evidence of pulmonary hypertension. Great Vessels All visible segments of the aorta are normal in size. The visualized portions of the pulmonary artery and branches are normal. Venous The inferior vena cava is normal in size and collapses greater than 50% with inspiration. Pericardium/Pleural There is no evidence of pericardial effusion. Prior Study Comparison Changes noted compared to prior study dated: 06/23/2024. Post surgical AVR, MG aortic valve 5 mm Hg. Measurements 2D Linear Measurements IVSd: 1.01 0.6-0.9/0.6-1.0 cm LVIDd: 4.30 3.9-5.3/4.2-5.9 cm LVIDd Index: 2.36 2.4-3.2/2.2-3.1 cm/m2 LVIDs: 2.86 2.0-3.6 cm LVPWd: 0.90 0.7-1.1 cm LA Diam: 4.10 2.7-3.8/3.0-4.0 cm LAIDs Index: 2.25 1.5-2.3 cm/m2 LV Mass: 166.13 67-162/88-224 g LV Mass Index: 91.28 43-95/49-115 g/m2 LVOT Diam: 2.00 3.0+(-)1.3 cm 2D Systolic Function EF 4C: 59.80 >55% EF 2C: 59.80 >55% EF BiP: 58.20 >55% Mitral Valve MV Pk E: 0.85 MV PK A: 0.79 MV Decel Time: 187.00 E/A: 1.10 E'Lateral: 10.30 E'Medial: 7.18 E/E' Med: 11.80 E/E' Lat: 8.20 PHT: 55.00 MVA PHT: 4.00 Decel [place]: 4.53 Aortic Valve AoV Pk Lion: 1.53 AoV Mn Lion: 1.04 AoV VTI: 0.37 AoV Pk Grad: 9.00 Aov Mn Grad: 5.00 GENIA Cont.VTI: 1.90 LVOT LVOT Pk Lion: 0.83 LVOT Mn Lion: 0.59 LVOT VTI: 0.22 LVOT Pk Grad: 3.00 LVOT Mn Grad: 2.00 LVOT Diam: 2.00 LVOT Area: 3.14 Diastolic Function MV Pk E: 0.85 MV Pk A: 0.79 E/A: 1.10 E'Medial: 7.18 E/E' Med: 11.80 E' Laterial: 10.30 E/E' Lat: 8.20 Right Ventricle TAPSE (mm): 18.90 TVS' Lion: 8.81 Tricuspid Valve TR Pk Lion: 2.19 TR Pk Grad: 19.00 RA Press: 3.00 RVSP: 22.00 Great Vessels Aorta Ao Asc: 3.30 2.1-3.4 cm Updated in Other Vendor System with Status of Final Jesse Hudson MD electronically signed on 11/20/2024 1:06:46 PM with status of Final
== END ==
LOC: HO.CARD 09:50
PROVIDERS: PCP Family Medicine; Visit Provider Internal Medicine Cardiovascular Disease
DX: Z95.2 Presence of prosthetic heart valve (principal)
CPT/HCPCS: 93306

== ENCOUNTER → 2024-11-18 09:53 | Outpatient (BNV) | payer MEDICARE, MEDICAID, SELFPAY | PROVIDERS: PCP Family Medicine; Visit Provider Internal Medicine Cardiovascular Disease | DX: Z95.2 Presence of prosthetic heart valve (principal) | CPT/HCPCS: 93306 ==

== ENCOUNTER 2025-01-13 13:46 | Outpatient (AMB) | payer MEDICARE, MEDICAID, SELFPAY ==
--- NOTE | 2025-01-13 13:51 | A.OFFPC_ITS ---
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 Is last menstrual period known: No Post menopausal: No Patient : No Allergies iodine Allergy (Severe, Verified 01/13/25 13:54) Unknown nabumetone (From Relafen) Allergy (Intermediate, Verified 01/13/25 13:54) ITCHING shellfish derived Allergy (Intermediate, Verified 01/13/25 13:54) Swelling tramadol (Tramadol) Allergy (Mild, Verified 01/13/25 13:54) ITCHING bee sting Adverse Reaction (Mild, Uncoded 10/18/24 16:28) Redness of Skin Medication List - Last Reconciled 01/13/25 by Jakob Orellana MD aspirin (Adult Low Dose Aspirin) 81 mg PO DAILY azelastine-fluticasone 137-50 mcg/spray (Dymista) 1 spray intranasal BID PRN budesonide-formoterol 160-4.5 mcg/actuation (Symbicort) 2 puffs inhalation BID PRN buspirone 10 mg PO BID PRN cholecalciferol (vitamin D3) (Vitamin D3) 25 mcg PO DAILY 30 days coenzyme Q10 200 mg PO BID fexofenadine 180 mg PO DAILY PRN furosemide (Lasix) 20 mg PO DAILY gabapentin 300 mg PO TID ibuprofen 400 mg PO Q8H PRN 30 days levothyroxine 150 mcg PO DAILY 90 days lorazepam 1 mg PO DAILY PRN magnesium citrate,mag oxide 750 mg PO DAILY metoprolol succinate ER 25 mg PO BID naloxone 4 mg/actuation 4 mg intranasal Q2M PRN 30 days oxycodone 10 mg PO Q12H 30 days pantoprazole 20 mg PO QAM paroxetine HCl 10 mg PO BEDTIME PRN vhuldfso-ngxz-nygol-oreg-capry 100 mg-150 mg- 50 mg-150 mg 1 cap PO DAILY vitamin B complex 1 cap PO DAILY zolpidem 10 mg PO BEDTIME Tobacco use date assessed: 01/13/25 Fall risk assessment: No Falls in past year Last assessed Fall Risk: 01/13/25 Dental Screening Dental Screen Date: 01/13/25 Did you have a dental visit in the last 12 months?: Yes Did you have a dental problem in the last 6 months where you did not have access to dental care?: No Was dental information given to patient?: Patient has dentist HPI f/u HLD, HTN, chronic conditions HPI Details 64 y/o female presents to f/u HLD, HTN. Also f/u on chronic pain. BP today 128/59, 69p. She is on metoprolol 25mg b.i.d. She is s/p AVR and has been following up with Cardiology. Denies any chest pain, shortness of breath. Labs drawn 10/06/24. Reviewed labs with pt. Ongoing anemia. A1c 5.0%. Triglycerides 177. TC 168. LDL 93. HDL 40. PFSH Medical History Headache SERGIO (obstructive sleep apnea) Bronchitis Pulmonary nodules Hydroureter Acid reflux Elevated fasting blood sugar Degenerative disc disease Arthritis Thyroid disease Irritable bowel syndrome (IBS) GERD (gastroesophageal reflux disease) Depression Lab test negative for COVID-19 virus History of cardiac murmur History of palpitations Surgical History H/O heart surgery History of cardiac cath History of back surgery Hx of cholecystectomy H/O excision of ganglion cyst History of esophagogastroduodenoscopy (EGD) Hx of tubal ligation H/O colonoscopy Family History Father Asthma Mother Arthritis Medical history non-contributory Brother Colon cancer Brother No problems noted. Brother No problems noted. Sister No problems noted. Sister No problems noted. Sister No problems noted. Son No problems noted. Son No problems noted. Daughter No problems noted. Social History Household Members: None Household Members Other:: alone Housing: House Are you a primary managed care analyst to a significant other at home: No Do you presently have visiting nurse or other home services: No Alcohol intake: never Patient Tobacco Use Status: Never used Tobacco e-Cigarette/Vaping Use: Never Used Second Hand Smoke Exposure: No Patient : No service: No Current occupational status: disabled Current occupational exposures/hazards: No Cognitive needs: No Hearing needs: No Vision needs: No Questionnaire Thrive Questionnaire Date Thrive assessed: 05/25/24 I am a: Patient What is your living situation today?: I have a steady place to live Within the past 12 months, did the food you bought not last and you didn't have the money to get more?: Never true Within the past 12 months, did you worry whether your food would run out before you got money to buy more?: Never true Do you have trouble paying for medicines?: No Do you have trouble getting transportation to medical appointments?: No Do you have trouble paying your heating and electricity bill?: No Do you have trouble taking care of your child, family member or friend?: No Do you have trouble with day-to-day activities such as bathing, preparing meals, shopping, managing finances, etc.?: Yes Are you currently unemployed and looking for a job?: I choose not to answer this question Are you interested in more education?: No Please select the resources that you would like help with: None Currently or been in a relationship where the following occur: No concerns reported THRIVE Score: 0 YUMIKO-7 AMB Questionnaire YUMIKO-7 Date YUMIKO - 7 assessed: 04/08/23 Source: Developed by Drs. Brian Abreu, Daina Ahmadi, Ralph Redmond and colleagues, with an educational brian from [employer]. Review of Systems Const Denies chills, Denies fatigue, Denies fever(s), Denies headache(s) and Denies weakness ENT Denies dizziness and Denies headache(s) Card Denies dyspnea Resp Denies cough, Denies dyspnea, Denies wheezing and Denies other (shortness of breath) Musc Denies numbness and Denies tingling Neuro Denies dizziness, Denies headache(s), Denies numbness, Denies tingling and Denies weakness Psych Denies anxiety and Denies depression Endo Denies fatigue Aller/Immun Denies wheezing Physical exam (Primary Care) Vital Signs: Last Vital Signs Temp 97.9 F 01/13/25 13:58 Pulse 69 01/13/25 13:58 Resp 16 01/13/25 13:58 BP 128/59 L 01/13/25 13:58 Pulse Ox 98 01/13/25 13:58 Oxygen Delivery Method Room Air 01/13/25 13:58 BMI result Body Mass Index 33.0 Tobacco/Smoking Status: Tobacco use Status Tobacco use date assessed 01/13/25 01/13/25 14:01 Patient Tobacco Use Status Never used Tobacco 01/13/25 13:53 e-Cigarette/Vaping Use Never Used 01/13/25 13:53 Thrive Assessment: Date of Thrive Assessment Date Thrive assessed 05/25/24 01/13/25 13:53 Currently or been in a relationship where the following occur: No concerns reported Const General: well developed; No acute distress Nutritional Appearance: well nourished Orientation/consciousness: patient oriented x3 HENMT Head: Yes normocephalic and Yes atraumatic Eyes General: appearance normal, both eyes and all related structures Pupils: Equal, round and reactive pupils present EOM: EOMs intact bilaterally Resp Effort & Inspection: normal respiratory effort Auscultation: clear to auscultation bilaterally Cardio Rate: regular rate Rhythm: regular rhythm Heart sounds: S1 normal heart sound present, S2 normal heart sound present, no gallops, Murmur heart sound present and no rubs Neuro General: patient oriented x3 and gait normal Cranial nerves: Yes Equal, round and reactive pupils present Psych Affect: normal affect Coding Level of Care Code Est Pt Level 4 (18184) Diagnoses Primary hypertension I10 Hypertension type: primary hypertension S/P AVR (aortic valve replacement) Z95.2 Anemia D64.9 Chronic pain G89.29 Assessment & Plan Assessment & Plan (1) Hypertension: Code(s): I10 - Essential (primary) hypertension Category: Medical Qualifiers: Hypertension type: primary hypertension Qualified Code(s): I10 - Essential (primary) hypertension Plan: Blood pressure is fairly well controlled. Goal is less than 130/80 Continue current medications (2) S/P AVR (aortic valve replacement): Code(s): Z95.2 - Presence of prosthetic heart valve Category: Surgical Plan: Feeling well. No shortness a breath or chest pain Follow-up with Cardiology as recommended (3) Anemia: Code(s): D64.9 - Anemia, unspecified Category: Medical Plan: Mild worsening of her anemia s/p surgery We can follow-up on this prior to visit (4) Chronic pain: Code(s): G89.29 - Other chronic pain Category: Medical Plan: h/o fibromyalgia and back pain Patient is taking oxycodone as prescribed. She also notes that she has had chronic headaches in while she was on gabapentin from her discharge medication, she did not have headaches. Will trial gabapentin 100 mg t.i.d. Medications: New gabapentin 100 mg PO TID 90 caps 1RF 30 days
[2025-01-13 13:58] VITALS: BP 128/59; PULSE 69; RESP 16; TEMP 36.6; O2SAT 98; BMI 33.0
== END 2025-01-13 14:25 | disposition home or self-care (01) ==
LOC: HO.HMCFM 13:48
PROVIDERS: PCP Family Medicine; Visit Provider Family Medicine
DX: I10 Essential (primary) hypertension (principal); Z95.2 Presence of prosthetic heart valve; D64.9 Anemia, unspecified; G89.29 Other chronic pain

== ENCOUNTER → 2025-01-13 13:46 | Outpatient (BNVA) | payer MEDICARE, MEDICAID, SELFPAY | PROVIDERS: PCP Family Medicine; Visit Provider Family Medicine | DX: I10 Essential (primary) hypertension (principal); D64.9 Anemia, unspecified; G89.29 Other chronic pain; Z95.2 Presence of prosthetic heart valve | CPT/HCPCS: 99212 ==

== ENCOUNTER 2025-01-24 09:45 | Outpatient (AMB) | payer MEDICARE, MEDICAID, SELFPAY ==
[2025-01-24 10:02] VITALS: BP 120/58; PULSE 74; BMI 33.2
--- NOTE | 2025-01-24 10:02 | A.OFFVIS_ITS ---
Vital Signs 01/24/25 10:02 Height 5 ft 2 in Weight 181 lb 10.574 oz BMI 33.2 BP 120/58 L Blood Pressure Location Lt brachial Position Sitting Pulse 74 Pulse Source Monitor Intake Visit Reasons: 3 Month Follow Up Livestock Feeder Required: No Accompanied by: Self / Same As Patient Allergies iodine Allergy (Severe, Verified 01/24/25 10:05) Unknown nabumetone (From Relafen) Allergy (Intermediate, Verified 01/24/25 10:05) ITCHING shellfish derived Allergy (Intermediate, Verified 01/24/25 10:05) Swelling tramadol (Tramadol) Allergy (Mild, Verified 01/24/25 10:05) ITCHING bee sting Adverse Reaction (Mild, Uncoded 10/18/24 16:28) Redness of Skin Medication List - Last Reconciled 01/24/25 by Jesse Hudson MD aspirin (Adult Low Dose Aspirin) 81 mg PO DAILY azelastine-fluticasone 137-50 mcg/spray (Dymista) 1 spray intranasal BID PRN budesonide-formoterol 160-4.5 mcg/actuation (Symbicort) 2 puffs inhalation BID PRN buspirone 10 mg PO BID PRN cholecalciferol (vitamin D3) (Vitamin D3) 25 mcg PO DAILY 30 days coenzyme Q10 200 mg PO BID fexofenadine 180 mg PO DAILY PRN furosemide (Lasix) 20 mg PO DAILY gabapentin 100 mg PO TID 30 days ibuprofen 400 mg PO Q8H PRN 30 days levothyroxine 150 mcg PO DAILY 90 days lorazepam 1 mg PO DAILY PRN magnesium citrate,mag oxide 750 mg PO DAILY metoprolol succinate ER 25 mg PO BID naloxone 4 mg/actuation 4 mg intranasal Q2M PRN 30 days oxycodone 10 mg PO Q12H 30 days pantoprazole 20 mg PO QAM paroxetine HCl 10 mg PO BEDTIME PRN eqxwaoec-dkjs-geuwc-oreg-capry 100 mg-150 mg- 50 mg-150 mg 1 cap PO DAILY vitamin B complex 1 cap PO DAILY zolpidem 10 mg PO BEDTIME HPI Comments Details: 64-year-old female who is here for follow-up. She had severe aortic valve stenosis and was dyspnea on exertion. She underwent TAVR protocol CTA and we had discussion as heart team and decision was made to proceed with surgical aortic valve replacement. She is now status post AVR. She is denying any chest discomfort. Her breathing has been stable. She has not started any cardiac rehabilitation. Blood pressure well controlled. 01/24/2025: Here for follow-up. She has been doing well post surgical aortic valve replacement. She is going to cardiac rehabilitation. Occasionally gets palpitations lasting for 1-2 seconds. [facility] Medical History Headache SERGIO (obstructive sleep apnea) Bronchitis Pulmonary nodules Hydroureter Acid reflux Elevated fasting blood sugar Degenerative disc disease Arthritis Thyroid disease Irritable bowel syndrome (IBS) GERD (gastroesophageal reflux disease) Depression Lab test negative for COVID-19 virus History of cardiac murmur History of palpitations Surgical History H/O heart surgery History of cardiac cath History of back surgery Hx of cholecystectomy H/O excision of ganglion cyst History of esophagogastroduodenoscopy (EGD) Hx of tubal ligation H/O colonoscopy Family History Father Asthma Mother Arthritis Medical history non-contributory Brother Colon cancer Brother No problems noted. Brother No problems noted. Sister No problems noted. Sister No problems noted. Sister No problems noted. Son No problems noted. Son No problems noted. Daughter No problems noted. Social History Household Members: None Household Members Other:: alone Housing: House Are you a primary critical care physician to a significant other at home: No Do you presently have visiting nurse or other home services: No Alcohol intake: never Patient Tobacco Use Status: Never used Tobacco e-Cigarette/Vaping Use: Never Used Second Hand Smoke Exposure: No service: No Current occupational status: disabled Current occupational exposures/hazards: No Cognitive needs: No Hearing needs: No Vision needs: No Review of Systems Const Denies daytime sleepiness, Denies difficulty sleeping, Denies snoring, Denies stops breathing during sleep and Denies weakness Card Denies chest pain, Denies rapid heart rate, Denies irregular heart rhythm, Denies claudication, Denies leg edema, Reports lightheadedness, Reports palpitations, Denies dyspnea, Denies dyspnea on exertion, Denies orthopnea, Denies paroxysmal nocturnal dyspnea and Denies slow heart rate Resp Denies cough, Denies dyspnea, Denies dyspnea on exertion and Denies snoring GI Reports no additional complaints, Denies hematochezia, Denies change in stool character and Denies dyspepsia Musc Denies abnormal gait, Denies muscle weakness and Denies numbness Neuro Denies abnormal gait, Denies numbness and Denies weakness Endo Reports palpitations Physical Exam Vital Signs: Last Vital Signs Pulse 74 01/24/25 10:02 BP 120/58 L 01/24/25 10:02 BMI result Body Mass Index 33.2 GENERAL APPEARANCE: in no acute distress, pleasant. NECK: no carotid bruit, no jugular venous distention. SKIN: Midline healed sternotomy wound. HEART: no murmurs, regular rate and rhythm. LUNGS: clear to auscultation bilaterally. ABDOMEN: soft, nontender. EXTREMITIES: no edema. PERIPHERAL PULSES: equal. NEUROLOGIC: No gross deficits, AAO X 3 Office Procedures EKG Details: Normal sinus rhythm 74 beats per minute, normal ECG, QTC 437 milliseconds. [id number], Complete Assessment & Plan Assessment & Plan (1) Hypertension: Code(s): I10 - Essential (primary) hypertension Category: Medical Qualifiers: Hypertension type: primary hypertension Qualified Code(s): I10 - Essential (primary) hypertension (2) S/P AVR (aortic valve replacement): Code(s): Z95.2 - Presence of prosthetic heart valve Category: Surgical Plan Pleasant 64 year female with severe aortic valve stenosis status post surgical aortic valve replacement. She also has background of hypertension. Blood pressure is well controlled. She is going to cardiac rehabilitation and has been doing well. Occasional palpitations lasting for 1-2 seconds. I have reassured her currently. I have also advised her that if she gets longer episodes of palpitations then she should reach out to us. Thank you for allowing me to participate in the care of your patient. Please feel free to contact me if you have any questions. Coding Level of Care Code Est Pt Level 4 (66110) Diagnoses Primary hypertension I10 Hypertension type: primary hypertension S/P AVR (aortic valve replacement) Z95.2 CPT Codes EKG - CPT: 73803-[id number], Complete ([id number])
== END 2025-01-24 10:29 | disposition home or self-care (01) ==
LOC: HO.HCS 09:46
PROVIDERS: PCP Family Medicine; Visit Provider Internal Medicine Cardiovascular Disease
DX: I10 Essential (primary) hypertension (principal); Z95.2 Presence of prosthetic heart valve
CPT/HCPCS: 93010; 99214

== ENCOUNTER → 2025-01-24 09:45 | Outpatient (BNVA) | payer MEDICARE, MEDICAID, SELFPAY | PROVIDERS: PCP Family Medicine; Visit Provider Internal Medicine Cardiovascular Disease | DX: I10 Essential (primary) hypertension (principal); Z95.2 Presence of prosthetic heart valve | CPT/HCPCS: 93005; 99212 ==

== ENCOUNTER 2025-02-08 11:12 | Outpatient (AMB) | payer MEDICARE, MEDICAID, SELFPAY ==
[2025-02-08 11:17] VITALS: BP 142/68; PULSE 80; O2SAT 96; BMI 34.1
--- NOTE | 2025-02-08 11:17 | A.OFFVIS_ITS ---
Vital Signs 02/08/25 11:17 Height 5 ft 2 in Weight 186 lb 4.65 oz BMI 34.1 BP 142/68 H Blood Pressure Location Lt brachial Position Sitting Pulse 80 Pulse Source Pulse Oximeter Pulse Oximetry (%) 96 Oxygen Delivery Method Room Air Intake Visit Reasons: Obstructive sleep apnea Accompanied by: Self / Same As Patient Allergies iodine Allergy (Severe, Verified 02/08/25 11:21) Unknown nabumetone (From Relafen) Allergy (Intermediate, Verified 02/08/25 11:21) ITCHING shellfish derived Allergy (Intermediate, Verified 02/08/25 11:21) Swelling tramadol (Tramadol) Allergy (Mild, Verified 02/08/25 11:21) ITCHING bee sting Adverse Reaction (Mild, Uncoded 10/18/24 16:28) Redness of Skin HPI Comments Details: The patient is a 64 year woman who was referred to Pulmonary for evaluation of an abnormal cardiac CT scan with numerous pulmonary nodules. apparently patient was in her usual state health until back in November 2021 which she developed COVID. After COVID she did develop worsening cough which is congested in nature with green phlegm. She had been evaluated by primary care and was given supportive care. Subsequently her symptoms worsen and she ended up getting a chest x-ray demonstrating evidence of bronchitis. She was given a course of antibiotics and prednisone. She has been feeling better since then. Still, still coughing up phlegm in the morning. In the meantime she has been evaluated for cardiac disease. She was referred to [facility] which she underwent a CT scan of the coronary arteries. This is a very limited view of the lungs. Although, I personally reviewed it and the patient had multiple pulmonary nodules largest 1 measuring 5 mm on the major fissure on the left. However, this is a very limited amount of lung parenchymal evaluation. And therefore the best way to further assess her pulmonary nodules would be to get a formal CT scan of the chest. We did talk about treating her bronchitis. However, she would like to hold off until she has her cardiac evaluation prior to starting any pulmonary medications. 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 If her respiratory symptoms worsen and if she gets the okay from cardiology she can always call the office and we can send her additional medicines. 09/13/2022 the patient is here for pulmonary follow-up visit. The patient has been doing well. She has been using the Symbicort inhaler. However, causing her increased coughing irritation or throat and also difficulty sleeping. Therefore she cut it down to once a day. Still though still having some issues with that. Her breathing is overall better. She is able to clear her lungs fairly well with the inhaler. Denies any significant chest congestion. She still has episodic sensations like she needs to take a deep breath in but usually transient. We did review her last CT scan of the chest that she had in July 2022 demonstrating both noncalcified and calcified pulmonary nodules. All subcentimeter in size. The patient also has some evidence of apical scarring which is minimal and evidence of bronchitis. It was noted that her aortic valve is calcified. Indeed she does have moderate aortic stenosis based on echocardiogram. Ultimately patient is doing well. There is family history of lung cancer in the family so therefore the nodules concern her. Will plan to follow-up in 1 more year to make sure there is no progression of the nodules. If they continue to be stable after couple years we can just follow him as needed. 09/12/2023 the patient is here for a pulmonary follow-up visit. She has been recovering after having the flu. There was about 6-8 weeks ago. The patient recovered but then started developing a productive cough with yellowish-green phlegm. [id number] severity. She did use Mucinex at times with some relief. Then she stopped. Does have some increased shortness of breath as well. But otherwise better from the significant flu-like symptoms. She did have a CT scan of the chest which I personally reviewed with her. Appears that her pulmonary nodules have been stable. Although now she has areas of ground- glass opacity in the right upper lobe area. This most likely related to her recent infectious process. Will go ahead and treat her for a postviral bacterial infection. Specially with Staph aureus. Will go most likely require to repeat the CT scan in 4-6 months. In the meantime she has been having severe headaches. She also has episodes of waking up short of breath. She does have snoring. The patient has not had sleep study. At this point her Sharpsburg score is elevated 10/24. Will request a sleep study at this time. 12/16/2023 the patient is here for a pulmonary follow-up visit. Overall she is doing okay from a respiratory status. She is complaining of a persistent headache. She is also having neck pain and also left shoulder discomfort. She is having hard time with certain movement. Appears to be musculoskeletal. She is currently getting physical therapy. Will go ahead and request a chest x-ray for her. She will likely need additional imaging studies possibly an MRI in view of the significant limitation says she has right now. The patient also underwent a sleep study since she has been having headaches. She also has some daytime drowsiness with an Sharpsburg score of 8/24. Her AHI is only 4. Therefore likely has a little bit of sleep apnea but only minimal. The patient primarily had apneic episodes and hypopnea episodes when she was supine. Therefore she can go ahead and lay on her right side. She can not lay on the left due to her significant shoulder discomfort however. She can try positional therapy. In addition to that appears to have a component of postnasal drip and sinusitis. Will be reasonable to use nasal sprays for these a month and see there is any improvement in the sinus congestion. She can also could try decongestant therapy. From a pulmonary standpoint the patient did have a CT scan of the chest back in 09/15/2023 demonstrating multiple pulmonary nodules interstitial changes. Will go ahead and repeat her CT scan in August or 08/15/2024. Will follow-up after that. If she has any issues prior to that she will call for an earlier assessment. 06/18/2024 the patient is here for a pulmonary follow-up visit. Overall the patient has been doing better now. She did develop RSV sometime beginning of April and subsequently after that developed norovirus. She is not recuperating from them. Pulmonary cervantes she had to use her inhaler more often during the episode of RSV and she subsequently has been feeling better and therefore has not required it. The patient did have a CT scan back in 09/15/2023 demonstrating numerous pulmonary nodules and also areas of ground-glass opacities. Will go ahead and request a repeat CT scan around the same time to address those findings. In the meantime she is having significant left shoulder pain. She did have an MRI she has been followed up closely by Orthopedic surge ry. [place] that she needs to have orthopedic surgery. She is scheduled sometime in June. From a pulmonary standpoint the patient is doing very well and she is able to pr then in if oceed with anesthesia and surgery at this time. Otherwise patient follow-up in 6-8 months. If she has any issues prior to that she will call for an earlier assessment. 09/08/2024 the patient is here for pulmonary follow-up visit. Overall the patient has been doing fairly well from a respiratory status. Her breathing is well and she does not have any respiratory limitations. She has not had to use any inhalers. We have been following some nodules. She did have a CT scan at [facility] of the chest to assess her cardiac in her valve. I did visualize myself and actually we were able to see full lung windows. Was very adequate and I do not see the ground-glass opacity in the longer. Therefore we can cancel the CAT scan here. Her other nodules are small subcentimeter in size and stable. Will plan to follow-up with a CAT scan in a year's time instead. For now though she is going to be talking to her convolute tube winder and a Cardiothoracic surgeon regarding her aortic valve with critical stenosis. She is contemplating open heart surgery for the valve replacement versus a trans vascular approach. She will be talking to the surgeon and the convolute tube winder and making a shared decision. Otherwise patient is doing well will follow-up sometime in the fall to assess her progress. 02/08/2025 the patient is here for a pulmonary follow-up visit. Overall the patient has been doing well. She did have her open heart aortic valve replacement without any difficulties. The areas still healing. Her postoperative echo was reassuring. Breathing cervantes the patient is doing well. She does get fatigued. She did have significant anemia postop. Will go ahead and request a repeat hemoglobin check as this could be accounting for some of her shortness of breath and headaches. She has a decreased appetite. From a pulmonary standpoint the patient did have a CT scan back in the spring demonstrating the pulmonary nodules. Will have her come back afterwards with a repeat CAT scan in the spring to monitor her pulmonary nodules. Overall the patient is doing well will follow-up in the spring after her CAT scan. If anything issues arise prior to that she can always call further rec ommendations. [facility] Medical History Headache SERGIO (obstructive sleep apnea) Bronchitis Pulmonary nodules Hydroureter Acid reflux Elevated fasting blood sugar Degenerative disc disease Arthritis Thyroid disease Irritable bowel syndrome (IBS) GERD (gastroesophageal reflux disease) Depression Lab test negative for COVID-19 virus History of cardiac murmur History of palpitations Surgical History H/O heart surgery History of cardiac cath History of back surgery Hx of cholecystectomy H/O excision of ganglion cyst History of esophagogastroduodenoscopy (EGD) Hx of tubal ligation H/O colonoscopy Family History Father Asthma Mother Arthritis Medical history non-contributory Brother Colon cancer Brother No problems noted. Brother No problems noted. Sister No problems noted. Sister No problems noted. Sister No problems noted. Son No problems noted. Son No problems noted. Daughter No problems noted. Social History (Reviewed 02/08/25 @ 11:23 by Maria Antonia De La Rosa [facility]) Household Members: None Household Members Other:: alone Housing: House Are you a primary livestock caretaker to a significant other at home: No Do you presently have visiting nurse or other home services: No Alcohol intake: never Patient Tobacco Use Status: Never used Tobacco e-Cigarette/Vaping Use: Never Used Second Hand Smoke Exposure: No service: No Current occupational status: disabled Current occupational exposures/hazards: No Cognitive needs: No Hearing needs: No Vision needs: No Review of Systems Const Denies chills, Reports fatigue, Denies fever(s), Reports headache(s), Denies weight gain and Denies weight loss ENT Denies dizziness and Reports headache(s) Card Reports chest pain, Denies leg edema, Denies lightheadedness, Denies palpitations, Denies dyspnea on exertion, Denies orthopnea and Denies other Resp Denies cough, Denies dyspnea on exertion and Denies wheezing GI Denies hematochezia and Denies change in stool character Musc Denies abnormal gait, Denies muscle weakness, Denies numbness, Denies radiating pain into limb and Denies tingling Neuro Denies abnormal gait, Denies dizziness, Reports headache(s), Denies numbness and Denies tingling Psych Denies anxiety and Denies depression Endo Reports fatigue and Denies palpitations Aller/Immun Denies wheezing Physical Exam Vital Signs: Last Vital Signs Pulse 80 02/08/25 11:17 BP 142/68 H 02/08/25 11:17 Pulse Ox 96 02/08/25 11:17 Oxygen Delivery Method Room Air 02/08/25 11:17 BMI result Body Mass Index 34.1 Const General: cooperative and comfortable Orientation/consciousness: patient oriented x3 HEENT Head: Yes normal to inspection, Yes normocephalic and Yes atraumatic Ears: hearing grossly normal bilaterally Eyes General: appearance normal, both eyes and all related structures Neck Neck: Yes normal visual inspection and Yes trachea midline Chest Chest palpation & inspection: normal inspection of the chest Resp Effort & Inspection: normal respiratory effort and able to speak in complete sentences Auscultation: clear to auscultation bilaterally Cardio Rate: regular rate Rhythm: regular rhythm Heart sounds: S1 normal heart sound present and S2 normal heart sound present GI Palpation (GI): Soft to palpation Skin General skin exam: no rashes or lesions noted Neuro General: patient oriented x3 Extrem General: Yes no clubbing, cyanosis or edema Psych Appearance: grossly normal and well kempt Mental Status: mental status grossly normal Speech and movement: Normal speech and movement present and Clear speech present Affect: normal affect Attitude: cooperative Thought process: Normal thought process present Thought content: Normal thought content present Insight: Good insight present (Psych) Judgement: Good judgement present (Psych) Assessment & Plan Assessment & Plan (1) Pulmonary nodules: Code(s): R91.8 - Other nonspecific abnormal finding of lung field Category: Medical (2) Pneumonitis: Comment: resolved based on CT from [facility] Code(s): J98.4 - Other disorders of lung Category: Medical (3) Severe aortic stenosis: Comment: S/P Bioprosthetic valve Code(s): I35.0 - Nonrheumatic aortic (valve) stenosis Category: Medical (4) Anemia: Code(s): D64.9 - Anemia, unspecified Category: Medical Qualifiers: Anemia type: other cause Other causes of anemia: other cause, not classified Qualified Code(s): D64.89 - Other specified anemias Plan Dymista repeat CT chest 07/2025 conitnue symbialrt Bloodwork F/U 6-8 months Orders: Orders IRON PROFILE Today D64.9 - Anemia, unspecified Ferritin Today D64.9 - Anemia, unspecified Vitamin B12 and Folate Today D64.9 - Anemia, unspecified Complete Blood Count Auto Diff Today D64.9 - Anemia, unspecified Coding Level of Care Code Est Pt Level 4 (12974) Complex EM visit Add On G2211 Diagnoses Pulmonary nodules R91.8 Pneumonitis J98.4 Severe aortic stenosis I35.0 Anemia due to other cause, not classified D64.89 Anemia type: other cause Other causes of anemia: other cause, not classified Time Spent (min) 17
--- OUTSIDE RECORDS SUMMARY | 2025-02-08 13:33 | XMS_ITS ---
Author Name [facility] Organization Unknown Encounters Encounter Type Encounter Reason Primary Diagnosis Location Date Ambulatory TBE Acute cystitis w ithout hematuria [facility] ([facility]) 02/06/2025 Care Team Organization Name Specialty Phone Email Start Date End Da te [facility] 02/06/2025
== END 2025-02-08 11:44 | disposition home or self-care (01) ==
LOC: HO.HPS 11:13
PROVIDERS: PCP Family Medicine; Visit Provider Hospitalist
DX: R91.8 Other nonspecific abnormal finding of lung field (principal); J98.4 Other disorders of lung; I35.0 Nonrheumatic aortic (valve) stenosis; D64.89 Other specified anemias
CPT/HCPCS: 99214; G2211

== ENCOUNTER 2025-02-08 11:12 | Outpatient (REF) | payer MEDICARE, MEDICAID, SELFPAY ==
[2025-02-08 14:30] LABS: Ferritin 15 ng/mL (10-250)
[2025-02-08 14:44] LABS: Folate 4.2 ng/mL (> or = 4.0); Vitamin B12 357 pg/mL (200-900)
== END 2025-02-08 11:13 | disposition home or self-care (01) ==
LOC: HO.LAB 11:12
PROVIDERS: PCP Family Medicine; Visit Provider Hospitalist
DX: I35.0 Nonrheumatic aortic (valve) stenosis (principal); J98.4 Other disorders of lung; D64.89 Other specified anemias; G47.33 Obstructive sleep apnea (adult) (pediatric); R51.9 Headache, unspecified; R91.8 Other nonspecific abnormal finding of lung field; M25.512 Pain in left shoulder
CPT/HCPCS: 36415; 82607; 82728; 82746; 99212